=== PATIENT | female | born 1950 | race Caucasian/White ===

== ENCOUNTER 2019-01-11 16:12 | Inpatient (IN) | payer MEDICARE, MEDICAID ==
[2019-01-11] VITALS (20 sets, daily range): BP systolic 69–144; BP diastolic 34–93; BMI 26.6
[~2019-01-11] VITALS: Ht 165.1 cm; Wt 73.0 kg
[2019-01-11] MEDS ORDERED: ALBUTEROL SULF8.5 GM INH (16:28)
[2019-01-11] MEDS ORDERED: SYMBICORT 16010.2 GM INH (16:29)
[2019-01-11] MEDS ORDERED: BUMETANIDE0.5 MG PO (16:29)
[2019-01-11] MEDS ORDERED: ELAVIL25 MG PO (16:29)
[2019-01-11] MEDS ORDERED: VITAMIN D31000 UNIT PO (16:30)
[2019-01-11] MEDS ORDERED: CARBIDOPA-LEVO1 EAC2 PO (16:30)
[2019-01-11] MEDS ORDERED: CLEOCIN HCL300 MG PO (16:30)
[2019-01-11] MEDS ORDERED: COREG6.25 MG PO (16:30)
[2019-01-11] MEDS ORDERED: VITAMIN B-12500 MCG PO (16:31)
[2019-01-11] MEDS ORDERED: CATAPRES0.1 MG PO (16:31)
[2019-01-11] MEDS ORDERED: MULTAQ400 MG PO (16:32)
[2019-01-11] MEDS ORDERED: COLACE100 MG PO (16:32)
[2019-01-11] MEDS ORDERED: FLORINEF 0.1 M0.1 MG PO (16:32)
[2019-01-11] MEDS ORDERED: NEURONTIN 300300 MG PO (16:34)
[2019-01-11] MEDS ORDERED: FOLIC ACID1 MG PO (16:34)
[2019-01-11] MEDS ORDERED: KLONOPIN1 MG PO (16:35)
[2019-01-11] MEDS ORDERED: IPRAT-ALBUT 0.5-3 ML UPD (16:35)
[2019-01-11] MEDS ORDERED: PRINIVIL10 MG PO (16:36)
[2019-01-11] MEDS ORDERED: SYNTHROID100 MCG PO (16:36)
[2019-01-11] MEDS ORDERED: K-TAB10 MEQ PO (16:37)
[2019-01-11] MEDS ORDERED: PERCOCET 7.5/321 TAB PO (16:37)
[2019-01-11] MEDS ORDERED: PROTONIX40 MG PO (16:37)
[2019-01-11] MEDS ORDERED: PAXIL40 MG PO (16:37)
[2019-01-11] MEDS ORDERED: SPIRIVA18 MCG INH (16:38)
[2019-01-11] MEDS ORDERED: GAS-X125 M1 PO (16:38)
[2019-01-11] MEDS ORDERED: STERAPRED DS 1010 MG PO (16:38)
[2019-01-11] MEDS ORDERED: XARELTO20 MG PO (16:39)
[2019-01-11] MEDS ORDERED: ZANAFLEX4 MG PO (16:39)
--- NOTE | 2019-01-11 17:12 | NUR ---
RESP. HERE TRYING TO STICK FOR ABG'S,
[2019-01-11 17:34] LABS: BASOPHILS 0.2 % (0-2); HEMATOCRIT 27.8 % (36.0-48.0); HEMOGLOBIN 9.2 g/dL (12-16); IMMATURE GRANULOCYTES 0.3 % (0-5); LYMPHOCYTES 5.5 % (15-50); MCH 28.4 pg (26.0-34.0); MCHC 33.1 g/dL (31.0-37.0); MCV 85.8 fL (80.0-100.0); MEAN PLATELET VOLUME 9.6 fL (7.4-10.4); MONOCYTES 8.3 % (2-11); NEUTROPHILS 84.7 % (40-80); PLATELET COUNT 243 10x3/uL (130-400); RBC 3.24 10x6/uL (4.00-5.40); RDW 19.5 % (11.5-14.5); WBC 12.6 10x3/uL (4.8-10.8)
[2019-01-11 17:58] LABS: APPEARANCE CLEAR (CLEAR); BILIRUBIN NEGATIVE (NEGATIVE); COLOR DK YELLOW (YELLOW); GLUCOSE NEGATIVE (NEGATIVE); KETONE NEGATIVE (NEGATIVE); NITRITE NEGATIVE (NEGATIVE); PROTEIN 1+ mg/dL (NEGATIVE); UROBILINOGEN NORMAL (NORMAL)
[2019-01-11 18:00] LABS: AMORPHOUS SEDIMENT >1+ /lpf (NONE SEEN); BACTERIA MODERATE /hpf (NONE SEEN); RED CELLS - URINE 0-5 /hpf (0-5); WHITE CELLS - URINE 0-5 /hpf (0-5)
[2019-01-11 18:04] LABS: ALBUMIN 1.9 g/dL (3.4-5.0); ALKALINE PHOSPHATASE 108 U/L (46-116); BILIRUBIN - TOTAL 0.26 mg/dL (0.2-1.3); CALC OSMOLALITY 281 mosm/kg (275-300); CARBON DIOXIDE 20.3 mmol/L (21.0-32.0); CHLORIDE - SERUM 103 mmol/L (98-107); CKMB 12.7 U/L (0.0-3.6); CREATININE - SERUM 2.7 mg/dL (0.6-1.3); GLUCOSE 110 mg/dL (74-106); POTASSIUM - SERUM 4.7 mmol/L (3.5-5.1); PROTEIN - SERUM 4.8 g/dL (6.4-8.2); SODIUM 136 mmol/L (136-145); UREA NITROGEN 37 mg/dL (7-18); eGFR NON AFRICAN AMERICAN 19 mL/min (90-120)
[2019-01-11 18:07] LABS: ALT (SGPT) 2 U/L (10-68); CREATINE KINASE 896 UL (21-215); TROPONIN-I < 0.017 ng/mL (0.000-0.060)
[2019-01-11 18:09] LABS: CALCIUM 6.2 mg/dL (8.5-10.1)
--- NOTE | 2019-01-11 19:00 | NUR ---
PICC LINE TO R SIDE ARM, PT HAS LARGE LAKE WRAP/SPLINT TO L ARM. PT STATES THAT SHE HAD SURGERY AT [facility]. PT HAS FOLLOW UP APPT TUESDAY WITH [facility]. PT STATES THAT HOME HEALTH HAS BEEN COMING TO DO ANTIBIOTICS IN PICC LINE.
--- NOTE | 2019-01-11 19:16 | NUR ---
BEDSIDE REPORT VIA SBAR FROM OFF GOING NURSE ANDREI. PT STABLE, REQUESTING SOMETHING FOR PAIN. INFORMED EDP AT THIS TIME.
--- NOTE | 2019-01-11 20:30 | NUR ---
LEVOPHED PAUSED AT THIS TIME. PT BP 130/80. ICU INFORMED. WILL TAKE DRIP TO ICU.
--- NOTE | 2019-01-11 20:40 | NUR ---
PT RECIEVED VIA STRETCHER FROM E.R., B/P 79/45, RESTARTED LEVOPHED GTT @ 5MCG VIA RIGHT PICC, PT SLIGHTLY LETHARGIC, O2 @ 3L VIA N/C, PIV IN LEFT THIGH SALINE LOCKED, STASIS ULCER NOTED TO RIGHT LOWER LEG, ADMISSION ASSESSMENT COMPLETED, WILL CONT TO MONITOR
--- NOTE | 2019-01-11 20:40 | NUR ---
LEVOPHED STARTED BACK.
[2019-01-11 22:50] LABS: CKMB 17.6 U/L (0.0-3.6); TROPONIN-I < 0.017 ng/mL (0.000-0.060)
[2019-01-11 22:51] LABS: CREATINE KINASE 1466 UL (21-215)
--- NOTE | 2019-01-11 23:00 | NUR ---
PT RESTING QUIETLY, REMAINS ON LEVOPHED GTT, WILL CONT TO MONITOR
[2019-01-12] VITALS (24 sets, daily range): BP systolic 92–143; BP diastolic 58–98; Ht 165.1 cm; Wt 73.0 kg
--- NOTE | 2019-01-12 00:30 | NUR ---
PT GONE TO RADIOLOGY VIA BED FOR VQ SCAN ACCOMPANIED BY NURSE
--- NOTE | 2019-01-12 03:00 | NUR ---
LEVOPHED DISCONTINUED, VITALS STABLE, PT RESTING QUIETLY
--- NOTE | 2019-01-12 05:00 | NUR ---
PT AWAKE C/O MORPHINE NOT HELPING WITH PAIN, ASKING FOR MUCINEX FOR CONGESTION, VITALS STABLE WITH NO PHYSICAL SIGNS OF DISTRESS NOTED
[2019-01-12 05:24] LABS: BASOPHILS 0.2 % (0-2); EOSINOPHILS 0.7 % (0-7); HEMATOCRIT 26.1 % (36.0-48.0); HEMOGLOBIN 8.5 g/dL (12-16); IMMATURE GRANULOCYTES 0.4 % (0-5); LYMPHOCYTES 8.7 % (15-50); MCH 27.8 pg (26.0-34.0); MCHC 32.6 g/dL (31.0-37.0); MCV 85.3 fL (80.0-100.0); MEAN PLATELET VOLUME 9.6 fL (7.4-10.4); PLATELET COUNT 242 10x3/uL (130-400); RBC 3.06 10x6/uL (4.00-5.40); RDW 19.4 % (11.5-14.5); WBC 10.6 10x3/uL (4.8-10.8)
[2019-01-12 05:30] LABS: APTT 32.5 SECONDS (22.8-39.4); INR 1.14 (0.85-1.17); PROTIME 14.1 SECONDS (11.6-15.0)
[2019-01-12 05:48] LABS: ALBUMIN 1.9 g/dL (3.4-5.0); ALKALINE PHOSPHATASE 103 U/L (46-116); BILIRUBIN - TOTAL 0.23 mg/dL (0.2-1.3); CARBON DIOXIDE 21.5 mmol/L (21.0-32.0); CHLORIDE - SERUM 106 mmol/L (98-107); CKMB 16.9 U/L (0.0-3.6); GLUCOSE 82 mg/dL (74-106); MAGNESIUM - SERUM 1.8 mg/dL (1.8-2.4); PHOSPHOROUS 2.7 mg/dL (2.5-4.9); POTASSIUM - SERUM 4.4 mmol/L (3.5-5.1); PRO BNP 3106 pg/mL (0-125); PROTEIN - SERUM 5.6 g/dL (6.4-8.2); SODIUM 138 mmol/L (136-145); VANCOMYCIN - RANDOM 11.5 ug/mL (10.0-20.0)
[2019-01-12 05:50] LABS: CALC OSMOLALITY 278 mosm/kg (275-300); CREATININE - SERUM 1.2 mg/dL (0.6-1.3); UREA NITROGEN 25 mg/dL (7-18); eGFR NON AFRICAN AMERICAN 47 mL/min (90-120)
[2019-01-12 05:51] LABS: ALT (SGPT) 5 U/L (10-68); CALCIUM 6.6 mg/dL (8.5-10.1); CREATINE KINASE 1507 UL (21-215); TROPONIN-I < 0.017 ng/mL (0.000-0.060)
[2019-01-12 11:26] LABS: ERYTHROCYTE SEDIMENTATION RATE 83 mm/hr (0-30)
[2019-01-12 12:05] LABS: TROPONIN-I < 0.017 ng/mL (0.000-0.060)
[2019-01-12 12:08] LABS: CREATINE KINASE 1425 UL (21-215)
--- NOTE | 2019-01-12 12:20 | MORECARE ---
CASE MANAGEMENT DISCHARGE SUMMARY PATIENT: HAIM FITZGERALD UNIT: [id number] ADM DATE: 01/11/19 AGE: 68 : 51 SEX: F ROOM/BED: D.2313 AUTHOR: KAREN WILLIAMSON PHYSICIAN: REFERRING PHYSICIAN: MAGALY ALVA MD DATE OF SERVICE: 01/12/19 Discharge Plan Patient Name: HAIM FITZGERALD [facility] [facility] 1950 Planned Disposition: Home with Home Health Anticipated Discharge Date: Discharge Date: Expected LOS: Initial Reviewer: [email or web address] Initial Review Date: 01/12/2019 Generated: 01/12/19 1:20 pm Patient Name: HAIM FITZGERALD Page 45889 at 1220 All edits/amendments must be made on the electronic document DICTATION DATE: 01/12/19 1219 WEB MERCHANT: KAYY 01/12/19 1219 RPT#: [id number] DC DATE: STATUS: ADM IN [facility] [address] [place] [address] END OF REPORT
--- NOTE | 2019-01-12 12:35 | MORECARE ---
CASE MANAGEMENT DISCHARGE SUMMARY PATIENT: HAIM FITZGERALD UNIT: [id number] ADM DATE: 01/11/19 AGE: 68 : 51 SEX: F ROOM/BED: D.2313 AUTHOR: CLAY,DOC PHYSICIAN: REFERRING PHYSICIAN: MAGALY ALVA MD DATE OF SERVICE: 01/12/19 Discharge Plan Patient Name: HAIM FITZGERALD Facility: [facility]:[place] : 1950 Planned Disposition: Home with Home Health Anticipated Discharge Date: Discharge Date: Expected LOS: Initial Reviewer: [email or web address] Initial Review Date: 01/12/2019 Generated: 01/12/19 1:35 pm Comments DCP- Discharge Planning Updated by [id number]: Shaylee Bowden on 01/12/19 11:[address] Patient Name: HAIM FITZGERALD Admission Status: ER Accout number: [id number] Admission Date: 01-11-2019 : 1950 Admission Diagnosis: Attending: MAGALY ALVA Current LOS: 1 Anticipated DC Date: Planned Disposition: Home with Home Health Primary Insurance: [facility] MEDICARE SOLUTIONS Discharge Planning Comments: CM met with patient to complete initial dc planning assessment. CM educated patient on the CM role and verbal consent given by patient to complete assessment. Patient lives at home alone where she is independent with her care. At discharge patient plans to return home and feels this is a safe discharge. CM discussed availability of home health, rehab services, and medical equipment. Patient states that she has Home Health with [facility]? Patient also states that her friend Sanaz checks on her often. Patient has a nebulizer and home o2 ( [place] home patient ) Patient denied known discharge needs at this time. CM will continue to follow and will assist as needed with dc plans/needs. Systems Integration Manager: Shaylee Bowden DCPIA - Discharge Planning Initial Assessment Updated by [email or web address]: Shaylee Bowden on 01/12/19 12:26 pm * Is the patient Alert and Oriented? Yes * How many steps to enter\exit or inside your home? * PCP MANJIT * Pharmacy [facility] * Preadmission Environment Home Alone * ADLs Independent * Other Equipment ROLLATOR, HOME 02, NEBULIZER * List name and contact numbers for known caregivers / representatives who currently or will assist patient after discharge: SANAZ REINA - [place] - [phone] * Verbal permission to speak to the caregivers and representatives has been obtained from the patient. Yes * Community resources currently utilized Home Health * Please name any agencies selected above. [facility]?? * Additional services required to return to the preadmission environment? No * Can the patient safely return to the preadmission environment? Yes * Has this patient been hospitalized within the prior 30 days at any hospital? No Last DP export: 01/12/19 11:20 am Patient Name: HAIM FITZGERALD Page 76201 at 1235 All edits/amendments must be made on the electronic document DICTATION DATE: 01/12/19 1235 STEAMBLASTER: KAYY 01/12/19 1235 RPT#: [id number] DC DATE: STATUS: ADM IN [facility] [address] [place] [address] END OF REPORT
--- NOTE | 2019-01-12 13:54 | NUR ---
0700 AWAKE ALERT ANSWERS QUESTIONS APPROPRIATELY ASSESSMENT COMPLETE NS @ 100ML/HR INFUSING TO RIGHT UPPER ARM PICC SITE SATISFACTORY
--- NOTE | 2019-01-12 13:57 | NUR ---
0900 PAPER CUP MACHINE TENDER FOR DR AYERS PRESENT AT BEDSIDE REMOVING OLD DRESSING TO LEFT ARM SURGICAL SITE SHANNON INTACT REPLACED WITH NEW DRESSING
--- NOTE | 2019-01-12 14:27 | NUR ---
1430 REMOVED LEFT THIGH SALINE LOCK SIGHT SATISFACTORY
--- NOTE | 2019-01-12 17:00 | NUR ---
RECEVIED VIA BED TO ROOM. BILATERAL FACIAL CHEECKS ARE BRIGHT RED, ON 4L PER NC. RIGHT UPPER ARM SINGLE LUMEN PICC SALINE LOCK SEEN WITH DRESSING C/D/I. RAMÍREZ CATH PATENT WITH CLEAR YELLOW URINE. BUTTOCK IS SLIGHTLY RED, SKIN BLANCHABLE. LOOSE LAKE WRAP SEEN TO LEFT ELBOW AREA. SEVERAL WHITE DRESSING SEEN TO RIGHT LOWER LEG, DATED TODAY. UPON TRANSFER TO BED, PATIENT COMPLAIN OF HAVING TO THROW UP. NO EMESIS SEEN. NON PRODUCTIVE COUGH.
--- NOTE | 2019-01-12 17:14 | NUR ---
1635 REPORT CALLED TO IVÁN ON MED II
--- NOTE | 2019-01-12 17:15 | NUR ---
1700 TRANSPORTED TO ROOM 2136 WEARING 4L O2/NC ACCEPTED BY 2 RN.
--- NOTE | 2019-01-13 00:08 | NUR ---
INITIAL ROUNDS AND ASSESSMENT, PT RESTING IN BED WITH EYES CLOSED. BACK TO NURSES STATION AND PHONE CALL FROM DR AYERS FOR PT TO BE TRANSFERRED TO [facility] FOR HIGHER LEVEL OF CARE. LEFT ELBOW IS SEPTIC AND NEEDS TO BE SEEN BY AN ELBOW SPECIALIST. PT VERY UPSET, CRYING. VERY ANXIOUS. ROCKING BACK AND FORTH. SPOKE AT LENGTH WITH PATIENT ABOUT THE REASON FOR A TRANSFER. ELECTRICAL MACHINIST, DHAVAL JOVEL NOTIFIED OF TRANSFER ORDER PER DR AYERS AND ACKNOWLEDGES/APPROVES TRANSFER. ALL PAPERWORK COMPLETED. TRANSFER TEAM FROM [facility] SPOKEN TO. REPORT CALLED TO CORTNEY AT [facility]. PT WILL BE GOING TO ROOM F920. PAGED DASHAWN STEWART AND OBTAINED ORDER FOR ATIVAN 0.5MG SIVP FOR HIGH LEVEL OF ANXIETY BEING DISPLAYED BY PATIENT. PT ALSO CRYING AND SAYING SHE HURTS IN HER ELBOW. ADMINISTERED. IV ATIVAN AND IV MORPHINE AT 2114/2119. AFTER PATIENT CALMER, SHE SIGNED RELEASE OF INFO, CONSENT TO TRANSFER FORMS AND WAS ABLE TO PROCESS MORE OF WHAT WAS BEING TOLD TO HER AND UNDERSTAND THE IMPORTANCE OF THE TRANSFER. PT'S CAREGIVER, ANDREI PORTILLO, ARRIVED TO COMFORT PATIENT AND ALSO TOOK HOME ALL HER VALUABLES WITH PATIENT'S CONSENT. [address] [facility] HAS ARRIVED AND PT TRANSPORTED VIA STRETCHER AT THIS TIME. ALL PAPERWORK WITH [facility].
--- NOTE | 2019-01-15 08:58 | MORECARE ---
CASE MANAGEMENT DISCHARGE SUMMARY PATIENT: HAIM FITZGERALD UNIT: [id number] ADM DATE: 01/11/19 AGE: 68 : 51 SEX: F ROOM/BED: D.5066 AUTHOR: CLAY,DOC PHYSICIAN: REFERRING PHYSICIAN: MAGALY ALVA MD DATE OF SERVICE: 01/15/19 Discharge Plan Patient Name: HAIM FITZGERALD [facility]:[place] : 1950 Planned Disposition: Acute Care Hospital Anticipated Discharge Date: 01/13/19 Discharge Date: 01/12/2019 Expected LOS: 2 Initial Reviewer: [email or web address] Initial Review Date: 01/12/2019 Generated: 01/15/19 9:58 am Comments DCP- Discharge Planning Updated by [email or web address]: Shaylee Bowden on 01/12/19 11:[address] Patient Name: HAIM FITZGERALD Admission Status: ER Accout number: [id number] Admission Date: 01-11-2019 : 1950 Admission Diagnosis: Attending: MAGALY ALVA Current LOS: 1 Anticipated DC Date: Planned Disposition: Home with Home Health Primary Insurance: [facility] MEDICARE SOLUTIONS Discharge Planning Comments: CM met with patient to complete initial dc planning assessment. CM educated patient on the CM role and verbal consent given by patient to complete assessment. Patient lives at home alone where she is independent with her care. At discharge patient plans to return home and feels this is a safe discharge. CM discussed availability of home health, rehab services, and medical equipment. Patient states that she has Home Health with [facility]? Patient also states that her friend Sanaz checks on her often. Patient has a nebulizer and home o2 ( [place] home patient ) Patient denied known discharge needs at this time. CM will continue to follow and will assist as needed with dc plans/needs. Line Tender: Shaylee Bowden DCPIA - Discharge Planning Initial Assessment Updated by [email or web address]: Shaylee Bowden on 01/12/19 12:26 pm * Is the patient Alert and Oriented? Yes * How many steps to enter\exit or inside your home? * PCP MANJIT * Pharmacy [facility] * Preadmission Environment Home Alone * ADLs Independent * Other Equipment ROLLATOR, HOME 02, NEBULIZER * List name and contact numbers for known caregivers / representatives who currently or will assist patient after discharge: SANAZ REINA - [place] - [phone] * Verbal permission to speak to the caregivers and representatives has been obtained from the patient. Yes * Community resources currently utilized Home Health * Please name any agencies selected above. [facility]?? * Additional services required to return to the preadmission environment? No * Can the patient safely return to the preadmission environment? Yes * Has this patient been hospitalized within the prior 30 days at any hospital? No Last DP export: 01/12/19 11:35 am Patient Name: HAIM FITZGERALD Page 67266 at 0858 All edits/amendments must be made on the electronic document DICTATION DATE: 01/15/19857 MAKEUP INSTRUCTOR: KAYY 01/15/1957 RPT#: [id number] DC DATE:01/12/19 STATUS: DIS IN [facility] [address] [place] [address] END OF REPORT
== END 2019-01-12 23:55 | disposition short-term general hospital (02) | DRG 871 ==
LOC: D.ER 16:12 → D.ICU 19:18 → D.M2 01-12 17:06
PROVIDERS: Family Medicine; Orthopaedic Surgery; ADMIT Internal Medicine Nephrology; ATTEND Internal Medicine Nephrology
DX: A41.9 Sepsis, unspecified organism (principal); R65.21 Severe sepsis with septic shock; N17.0 Acute kidney failure with tubular necrosis; M00.9 Pyogenic arthritis, unspecified; N39.0 Urinary tract infection, site not specified; I95.9 Hypotension, unspecified; J43.9 Emphysema, unspecified; I11.0 Hypertensive heart disease with heart failure; I50.9 Heart failure, unspecified; E03.9 Hypothyroidism, unspecified; K21.9 Gastro-esophageal reflux disease without esophagitis; M06.9 Rheumatoid arthritis, unspecified; G20 Parkinson's disease; M19.90 Unspecified osteoarthritis, unspecified site; G89.29 Other chronic pain; F32.9 Major depressive disorder, single episode, unspecified; G62.9 Polyneuropathy, unspecified; D64.9 Anemia, unspecified; E83.51 Hypocalcemia

== ENCOUNTER → 2019-01-22 15:39 | Outpatient (CLI) | payer MEDICARE, MEDICAID ==
[2019-01-12 10:00] VITALS: BMI 26.6
[~2019-01-22 15:39] MED LIST: ALBUTEROL SULF8.5 GM INH; BUMETANIDE0.5 MG PO; CARBIDOPA-LEVO1 EAC2 PO; CATAPRES0.1 MG PO; CLEOCIN HCL300 MG PO; COLACE100 MG PO; COREG6.25 MG PO; ELAVIL25 MG PO; FLORINEF 0.1 M0.1 MG PO; FOLIC ACID1 MG PO; GAS-X125 M1 PO; IPRAT-ALBUT 0.5-3 ML UPD; K-TAB10 MEQ PO; KLONOPIN1 MG PO; MULTAQ400 MG PO; NEURONTIN 300300 MG PO; PAXIL40 MG PO; PERCOCET 7.5/321 TAB PO; PRINIVIL10 MG PO; PROTONIX40 MG PO; SPIRIVA18 MCG INH; STERAPRED DS 1010 MG PO; SYMBICORT 16010.2 GM INH; SYNTHROID100 MCG PO; VITAMIN B-12500 MCG PO; VITAMIN D31000 UNIT PO; XARELTO20 MG PO; ZANAFLEX4 MG PO
[2019-01-22 15:59] LABS: BASOPHILS 0.1 % (0-2); EOSINOPHILS 2.7 % (0-7); HEMATOCRIT 32.1 % (36.0-48.0); HEMOGLOBIN 10.4 g/dL (12-16); IMMATURE GRANULOCYTES 0.5 % (0-5); LYMPHOCYTES 5.9 % (15-50); MCH 27.8 pg (26.0-34.0); MCHC 32.4 g/dL (31.0-37.0); MCV 85.8 fL (80.0-100.0); MEAN PLATELET VOLUME 10.4 fL (7.4-10.4); MONOCYTES 4.6 % (2-11); NEUTROPHILS 86.2 % (40-80); RBC 3.74 10x6/uL (4.00-5.40); RDW 18.4 % (11.5-14.5); WBC 13.8 10x3/uL (4.8-10.8)
[2019-01-22 16:26] LABS: PLATELET COUNT 447 10x3/uL (130-400)
== END | disposition home or self-care (01) ==
LOC: D.LABREF 15:39
PROVIDERS: ATTEND Family Medicine
DX: L03.114 Cellulitis of left upper limb (principal)

== ENCOUNTER → 2019-02-05 14:11 | Outpatient (CLI) | payer MEDICARE, MEDICAID ==
[2019-01-12 10:00] VITALS: BMI 26.6
[2019-02-05 14:36] LABS: BASOPHILS 0.7 % (0-2); EOSINOPHILS 6.9 % (0-7); HEMATOCRIT 37.1 % (36.0-48.0); HEMOGLOBIN 11.6 g/dL (12-16); IMMATURE GRANULOCYTES 0.3 % (0-5); LYMPHOCYTES 24.5 % (15-50); MCH 28.2 pg (26.0-34.0); MCHC 31.3 g/dL (31.0-37.0); MCV 90.3 fL (80.0-100.0); MEAN PLATELET VOLUME 11.1 fL (7.4-10.4); MONOCYTES 8.2 % (2-11); NEUTROPHILS 59.4 % (40-80); RBC 4.11 10x6/uL (4.00-5.40); RDW 18.5 % (11.5-14.5); WBC 6.8 10x3/uL (4.8-10.8)
[2019-02-05 14:46] LABS: PLATELET COUNT 274 10x3/uL (130-400)
[2019-02-05 14:51] LABS: ALBUMIN 2.8 g/dL (3.4-5.0); BILIRUBIN - DIRECT 0.09 mg/dL (0.00-0.30); BILIRUBIN - INDIRECT 0.42 mg/dL (0.00-1.00); BILIRUBIN - TOTAL 0.51 mg/dL (0.2-1.3); CREATININE - SERUM 1.3 mg/dL (0.6-1.3); PROTEIN - SERUM 6.1 g/dL (6.4-8.2)
== END | disposition home or self-care (01) ==
LOC: D.LABREF 14:11
PROVIDERS: ATTEND Family Medicine
DX: L03.114 Cellulitis of left upper limb (principal)

== ENCOUNTER → 2019-02-12 16:24 | Outpatient (CLI) | payer MEDICARE, MEDICAID ==
[2019-01-12 10:00] VITALS: BMI 26.6
[2019-02-12 17:33] LABS: BASOPHILS 0.3 % (0-2); HEMATOCRIT 33.5 % (36.0-48.0); HEMOGLOBIN 10.8 g/dL (12-16); IMMATURE GRANULOCYTES 0.2 % (0-5); LYMPHOCYTES 9.8 % (15-50); MCH 28.6 pg (26.0-34.0); MCHC 32.2 g/dL (31.0-37.0); MCV 88.9 fL (80.0-100.0); MEAN PLATELET VOLUME 11.2 fL (7.4-10.4); MONOCYTES 3.8 % (2-11); NEUTROPHILS 84.9 % (40-80); PLATELET COUNT 228 10x3/uL (130-400); RBC 3.77 10x6/uL (4.00-5.40); RDW 17.4 % (11.5-14.5); WBC 8.9 10x3/uL (4.8-10.8)
[2019-02-12 17:48] LABS: ALBUMIN 2.8 g/dL (3.4-5.0); BILIRUBIN - DIRECT 0.06 mg/dL (0.00-0.30); BILIRUBIN - INDIRECT 0.17 mg/dL (0.00-1.00); BILIRUBIN - TOTAL 0.23 mg/dL (0.2-1.3); CREATININE - SERUM 0.8 mg/dL (0.6-1.3); PROTEIN - SERUM 5.9 g/dL (6.4-8.2)
== END | disposition home or self-care (01) ==
LOC: D.LABREF 16:24
PROVIDERS: ATTEND Family Medicine
DX: B95.62 Methicillin resistant Staphylococcus aureus infection as the cause of diseases classified elsewhere (principal); M01.X22 Direct infection of left elbow in infectious and parasitic diseases classified elsewhere

== ENCOUNTER → 2019-02-19 14:56 | Outpatient (CLI) | payer MEDICARE, MEDICAID ==
[2019-01-12 10:00] VITALS: BMI 26.6
[2019-02-19 16:25] LABS: BASOPHILS 0.2 % (0-2); HEMATOCRIT 33.8 % (36.0-48.0); HEMOGLOBIN 10.8 g/dL (12-16); IMMATURE GRANULOCYTES 0.1 % (0-5); LYMPHOCYTES 9.5 % (15-50); MCH 28.3 pg (26.0-34.0); MCV 88.7 fL (80.0-100.0); MEAN PLATELET VOLUME 10.6 fL (7.4-10.4); MONOCYTES 4.8 % (2-11); NEUTROPHILS 83.4 % (40-80); PLATELET COUNT 250 10x3/uL (130-400); RBC 3.81 10x6/uL (4.00-5.40); RDW 16.7 % (11.5-14.5); WBC 8.5 10x3/uL (4.8-10.8)
[2019-02-19 16:48] LABS: ALBUMIN 2.5 g/dL (3.4-5.0); BILIRUBIN - DIRECT 0.05 mg/dL (0.00-0.30); BILIRUBIN - INDIRECT 0.18 mg/dL (0.00-1.00); BILIRUBIN - TOTAL 0.23 mg/dL (0.2-1.3); CREATININE - SERUM 1.1 mg/dL (0.6-1.3); PROTEIN - SERUM 5.5 g/dL (6.4-8.2)
== END | disposition home or self-care (01) ==
LOC: D.LABREF 14:56
DX: B95.62 Methicillin resistant Staphylococcus aureus infection as the cause of diseases classified elsewhere (principal)

== ENCOUNTER 2019-05-07 12:49 | Emergency (ER) | payer MEDICARE, MEDICAID ==
[~2019-05-07] VITALS: Ht 165.1 cm; Wt 69.1 kg
[2019-05-07 12:53] VITALS: Ht 165.1 cm; Wt 69.1 kg
[2019-05-07 13:41] LABS: BASOPHILS 0.3 % (0-2); EOSINOPHILS 1.9 % (0-7); HEMATOCRIT 35.8 % (36.0-48.0); HEMOGLOBIN 11.1 g/dL (12-16); IMMATURE GRANULOCYTES 0.1 % (0-5); LYMPHOCYTES 18.4 % (15-50); MCH 28.5 pg (26.0-34.0); MCV 91.8 fL (80.0-100.0); MEAN PLATELET VOLUME 10.8 fL (7.4-10.4); MONOCYTES 8.2 % (2-11); NEUTROPHILS 71.1 % (40-80); PLATELET COUNT 218 10x3/uL (130-400); RDW 18.7 % (11.5-14.5); WBC 8.8 10x3/uL (4.8-10.8)
[2019-05-07 13:54] LABS: CALC OSMOLALITY 286 mosm/kg (275-300); CALCIUM 8.1 mg/dL (8.5-10.1); CARBON DIOXIDE 26.3 mmol/L (21.0-32.0); CHLORIDE - SERUM 107 mmol/L (98-107); CREATININE - SERUM 1.2 mg/dL (0.6-1.3); GLUCOSE 80 mg/dL (74-106); POTASSIUM - SERUM 4.4 mmol/L (3.5-5.1); SODIUM 142 mmol/L (136-145); UREA NITROGEN 26 mg/dL (7-18); eGFR NON AFRICAN AMERICAN 47 mL/min (90-120)
[2019-05-07 14:13] LABS: ALBUMIN 2.8 g/dL (3.4-5.0); ALKALINE PHOSPHATASE 96 U/L (46-116); ALT (SGPT) 9 U/L (10-68); AMYLASE - SERUM 21 U/L (25-115); BILIRUBIN - TOTAL 0.19 mg/dL (0.2-1.3); CKMB 0.5 U/L (0.0-3.6); CREATINE KINASE 38 UL (21-215); LIPASE 76 U/L (73-393); MAGNESIUM - SERUM 1.6 mg/dL (1.8-2.4); TROPONIN-I < 0.017 ng/mL (0.000-0.060)
[2019-05-07 14:41] LABS: APPEARANCE CLEAR (CLEAR); BILIRUBIN NEGATIVE (NEGATIVE); COLOR YELLOW (YELLOW); GLUCOSE NEGATIVE (NEGATIVE); KETONE NEGATIVE (NEGATIVE); NITRITE NEGATIVE (NEGATIVE); PROTEIN NEGATIVE (NEGATIVE); UROBILINOGEN NORMAL (NORMAL)
[2019-05-07 16:22] VITALS: BP 129/82
== END 2019-05-07 16:20 | disposition home or self-care (01) ==
LOC: D.ER 12:49
PROVIDERS: Family Medicine
DX: E86.0 Dehydration (principal); Z86.73 Personal history of transient ischemic attack (TIA), and cerebral infarction without residual deficits; G62.9 Polyneuropathy, unspecified; G20 Parkinson's disease; E07.9 Disorder of thyroid, unspecified; I11.0 Hypertensive heart disease with heart failure; I50.9 Heart failure, unspecified; Z72.0 Tobacco use; J44.9 Chronic obstructive pulmonary disease, unspecified

== ENCOUNTER 2019-08-04 18:25 | Inpatient (IN) | payer MEDICARE, MEDICAID ==
[~2019-08-04] VITALS: Ht 165.1 cm; Wt 70.9 kg
[2019-08-04 19:00] VITALS: BP 98/77
--- NOTE | 2019-08-04 19:00 | NUR ---
PT C/O PAIN MD INFORMED. SEE EMAR.
[2019-08-04 19:41] LABS: BASOPHILS 0.5 % (0-2); EOSINOPHILS 1.6 % (0-7); HEMATOCRIT 42.4 % (36.0-48.0); HEMOGLOBIN 14.2 g/dL (12-16); IMMATURE GRANULOCYTES 0.3 % (0-5); LYMPHOCYTES 13.7 % (15-50); MCH 31.2 pg (26.0-34.0); MCHC 33.5 g/dL (31.0-37.0); MCV 93.2 fL (80.0-100.0); MEAN PLATELET VOLUME 10.7 fL (7.4-10.4); MONOCYTES 5.7 % (2-11); NEUTROPHILS 78.2 % (40-80); RBC 4.55 10x6/uL (4.00-5.40); RDW 14.4 % (11.5-14.5); WBC 10.4 10x3/uL (4.8-10.8)
[2019-08-04 19:42] LABS: PLATELET COUNT 277 10x3/uL (130-400)
[2019-08-04 20:00] VITALS: BP 94/63
--- NOTE | 2019-08-04 20:00 | NUR ---
PT PLACED IN SLING AT THIS TIME. PT HAD KERLEX TO R LOWER LEG. PT HAS LARGE HEMOTOMA TO L LOPEZ. NO BLEEDING PT LEG WRAPPED WITH LAKE WRAP AT THIS NICOLE ICE PACK APPLIED
[2019-08-04 20:03] LABS: ALBUMIN 3.8 g/dL (3.4-5.0); ANION GAP 13.3 mmol/L (8-16); BILIRUBIN - TOTAL 0.38 mg/dL (0.2-1.3); CALCIUM 9.4 mg/dL (8.5-10.1); CARBON DIOXIDE 27.9 mmol/L (21.0-32.0); CREATININE - SERUM 1.2 mg/dL (0.6-1.3); PROTEIN - SERUM 7.5 g/dL (6.4-8.2)
[2019-08-04 20:06] LABS: POTASSIUM - SERUM 6.2 mmol/L (3.5-5.1)
[2019-08-04 21:00] VITALS: BP 100/63
--- NOTE | 2019-08-04 23:30 | NUR ---
RECEIVED PT FROM ER VIA STRETCHER. PT INSISTED SHE COULD WALK FROM STRETCHER TO BED BUT WAS BARELY ABLE TO STAND UP. STAFF TRANSFERRED PT FROM STRETCHER TO BED. RT ARM IN SLING. LAKE WRAP NOTED TO RLE. BRUISES NOTED TO BLE. NS @ 75 MLHR INFUSING IN LT HAND. ALERT AND ORIENTED X4. VERY IRRITABLE, VERBALLY DISRUPTIVE, ATTN SEEKING WITH STAFF. STITCHES NOTED TO LT ELBOW. RECEIVED MORPHINE IN ER. B/P LOW. STERLING ALARM ON FOR PT SAFETY. CL IN REACH. RESP IRREG, SHALLOW. O2 @ 4L/NC. ENCOURAGED TO DEEP BREATHE.
[2019-08-05] VITALS (7 sets, daily range): BP systolic 79–98; BP diastolic 47–64; Ht 165.1 cm; Wt 70.9 kg
--- NOTE | 2019-08-05 02:35 | NUR ---
MEDICATED WITH TYLENOL FOR C/O PAIN IN RT ARM AND LEG RATING 9. B/P LOW AND UNABLE TO GIVE MORPHINE. CL IN REACH.
--- NOTE | 2019-08-05 03:45 | NUR ---
B/P 123/72 NOW. MEDICATED WITH MORPHINE FOR C/O PAIN IN RT ARM AND RLE RATING 10. CL IN REACH.
--- NOTE | 2019-08-05 04:25 | NUR ---
MEDICATED WITH SOMA ORDERED. PT NOW SATISFIED. CL IN REACH.
--- NOTE | 2019-08-05 05:02 | NUR ---
CONT TO C/O SEVERE PAIN IN RT ARM AND RLE AND IS ASKING FOR MUSCLE RELAXER. NOTIFIED DR OMER OF PT C/O AND REQUEST. NEW ORDER NOTED FOR SOMA AND INCREASE IV FLUIDS TO 100 MLHR. NOTIFIED ASBESTOS WIRE FINISHER OF NEED FOR MED THAT THIS LINUX ENGINEER CAN NOT OVERRIDE AT THIS TIME.
[2019-08-05 06:19] LABS: BASOPHILS 0.4 % (0-2); EOSINOPHILS 1.7 % (0-7); HEMATOCRIT 34.9 % (36.0-48.0); HEMOGLOBIN 11.4 g/dL (12-16); IMMATURE GRANULOCYTES 0.2 % (0-5); LYMPHOCYTES 14.5 % (15-50); MCH 30.9 pg (26.0-34.0); MCHC 32.7 g/dL (31.0-37.0); MCV 94.6 fL (80.0-100.0); MEAN PLATELET VOLUME 10.6 fL (7.4-10.4); MONOCYTES 8.6 % (2-11); NEUTROPHILS 74.6 % (40-80); PLATELET COUNT 239 10x3/uL (130-400); RBC 3.69 10x6/uL (4.00-5.40); RDW 14.5 % (11.5-14.5)
[2019-08-05 06:49] LABS: ALBUMIN 3.2 g/dL (3.4-5.0); ANION GAP 10.5 mmol/L (8-16); BILIRUBIN - TOTAL 0.36 mg/dL (0.2-1.3); CALCIUM 8.1 mg/dL (8.5-10.1); CARBON DIOXIDE 28.2 mmol/L (21.0-32.0); MAGNESIUM - SERUM 2.2 mg/dL (1.8-2.4); POTASSIUM - SERUM 5.7 mmol/L (3.5-5.1); PROTEIN - SERUM 6.2 g/dL (6.4-8.2)
[2019-08-05 06:55] LABS: CREATININE - SERUM 1.9 mg/dL (0.6-1.3)
--- NOTE | 2019-08-05 07:53 | NUR ---
PT RESTING IN BED WITH EYES OPEN, ALERT AND ORIENTED. IV LOCATED TO LEFT HAND RUNNING NS @ 100ML/HR. NO S/S OF DISTRESS AT THIS TIME, DENIES NEEDS, WILL CONT TO MONITOR.
--- NOTE | 2019-08-05 08:49 | NUR ---
BLADDER SCAN SHOWS 326ML OF URINE PRESENT, PT STATES SHE HAS NO URGE TO TRY AND PEE, AND THAT IT IS NORMAL FOR HER. WILL CONT TO MONITOR.
--- NOTE | 2019-08-05 10:26 | NUR ---
CONTACTED ABOUT BLOOD PRESSURE OF 79/40, WAS TOLD HE WOULD STOP MEDS THAT SHE NO LONGER NEEDED AND TO INCREASE NS TO 125ML/HR. WILL CONT TO MONITOR.
--- NOTE | 2019-08-05 12:00 | NUR ---
RAMÍREZ PLACED, 500 ML OF CLEAR YELLOW URINE PUT OUT.
[2019-08-05 12:41] LABS: NITRITE NEGATIVE (NEGATIVE); SPECIFIC GRAVITY 1.005 (1.005-1.020)
[2019-08-05 12:42] LABS: BILIRUBIN NEGATIVE (NEGATIVE); GLUCOSE 50 mg/dL (NEGATIVE); KETONE NEGATIVE (NEGATIVE); UROBILINOGEN NORMAL (NORMAL)
[2019-08-06] VITALS (7 sets, daily range): BP systolic 90–133; BP diastolic 54–85
--- NOTE | 2019-08-06 08:15 | NUR ---
PT RESTING IN BED, VOICING SEVERE PAIN TO RIGHT UPPER EXTREMITY. PT VOICES ARM SPASMING WITH PAIN 9/10 AT THIS TIME. AM MEDICATIONS ADMINISTERED AT THIS TIME. SLING NOTED TO RIGHT UPPER EXTREMITY. IV TO LEFT WRIST WITH NS @ 100ML/HR INFUSING VIA PUMP. SITE WITHOUT REDNESS OR EDEMA. BRUISING NOTED GENERALIZED OVER BODY. LAKE WRAP TO RIGHT LOWER EXTREMITY WITH NOTED LARGE HEMATOME TO LOWER LATERIAL CALF. PT DENIES FURTHER NEEDS AT THIS TIME. CL WITHIN REACH. ENCOURAGED TO CALL WITH NEEDS. CONTINUE POC
[2019-08-06 09:34] LABS: BASOPHILS 0.3 % (0-2); EOSINOPHILS 2.1 % (0-7); HEMOGLOBIN 9.5 g/dL (12-16); IMMATURE GRANULOCYTES 0.3 % (0-5); LYMPHOCYTES 13.8 % (15-50); MCH 30.1 pg (26.0-34.0); MCHC 32.8 g/dL (31.0-37.0); MEAN PLATELET VOLUME 10.9 fL (7.4-10.4); MONOCYTES 9.6 % (2-11); NEUTROPHILS 73.9 % (40-80); RBC 3.16 10x6/uL (4.00-5.40)
[2019-08-06 09:38] LABS: MCV 91.8 fL (80.0-100.0); PLATELET COUNT 179 10x3/uL (130-400); WBC 6.1 10x3/uL (4.8-10.8)
[2019-08-06 09:51] LABS: ANION GAP 12.2 mmol/L (8-16)
[2019-08-06 09:54] LABS: CREATININE - SERUM 1.3 mg/dL (0.6-1.3)
[2019-08-06 09:55] LABS: POTASSIUM - SERUM 4.2 mmol/L (3.5-5.1)
--- NOTE | 2019-08-06 11:05 | NUR ---
IV TO LEFT WRIST LEAKING AT SITE WITH NOTED REDNESS AND SWELLING. IV DC'D. RESITED IV TO LEFT FOREARM X 1 STICK. GOOD BLOOD RETURN, EASILY FLUSHES. TAPED IN PLACE. PT FELIPE WELL.
--- NOTE | 2019-08-06 12:47 | MORECARE ---
CASE MANAGEMENT DISCHARGE SUMMARY PATIENT: HAIM FITZGERALD UNIT: [id number] ADM DATE: 08/04/19 AGE: 68 : 51 SEX: F ROOM/BED: D.2208 AUTHOR: KAREN WILLIAMSON PHYSICIAN: REFERRING PHYSICIAN: EVA OMER MD DATE OF SERVICE: 08/06/19 Discharge Plan Patient Name: HAIM FITZGERALD [facility] [facility] 1950 Planned Disposition: Anticipated Discharge Date: Discharge Date: Expected LOS: Initial Reviewer: [email or web address] Initial Review Date: 08/04/2019 Generated: 08/06/19 1:46 pm Comments DCP- Discharge Planning Updated by [email or web address]: Fallon Dunham on 08/06/19 11:[address] REFERRAL SENT TO [facility] ORDERED BY DR OMER External Providers External Provider: [facility] and [facility] Next Contact Date: Service Request Date: Service Type: Resolution: Reviewer: Comments: Patient Name: HAIM FITZGERALD Page [phone] at 1247 All edits/amendments must be made on the electronic document DICTATION DATE: 08/06/19 124 LONG DISTANCE BILLING OPERATOR: KAYY 08/06/19 1246 RPT#: [id number] DC DATE: STATUS: ADM IN [facility] [address] [place] [address] END OF REPORT
--- NOTE | 2019-08-06 20:32 | NUR ---
REC'D CHGE SHIFT WALKING ROUNDS CALL LITE ON STATES I NEED SOMETHING BUT DON'T KNOW WHAT IT IS INTRUUCTED TO CALL WHEN REMEMBERS.LITE ON IMMEDIATELY AFTER LEAVING ROOM.STATES WHY DOES IT TAKE SO LONG TO ANSWER LITE ASKED HOW CAN I HELP YOU.STATES LAST NURSE DIDN'T BRING SOMA AT 1800 WHEN IT WAS DUE EXPLAINED PRN.VOICES UNDERSTANDING
--- NOTE | 2019-08-07 03:18 | NUR ---
I have reviewed this patient and I concur with the Shift Assessment completed by the Licensed Practical Nurse today this shift.
[2019-08-07 04:00] VITALS: BP 123/80
--- NOTE | 2019-08-07 04:32 | MORECARE ---
CASE MANAGEMENT DISCHARGE SUMMARY PATIENT: HAIM FITZGERALD UNIT: [id number] ADM DATE: 08/04/19 AGE: 68 : 51 SEX: F ROOM/BED: D.2208 AUTHOR: KAREN WILLIAMSON PHYSICIAN: REFERRING PHYSICIAN: EVA OMER MD DATE OF SERVICE: 08/07/19 Discharge Plan Patient Name: HAIM FITZGERALD [facility] [facility] 1950 Planned Disposition: Anticipated Discharge Date: Discharge Date: Expected LOS: Initial Reviewer: [email or web address] Initial Review Date: 08/04/2019 Generated: 08/07/19 5:31 am Comments DCP- Discharge Planning Updated by [email or web address]: Fallon Dunham on 08/07/19 3:[address] RECEIVED A MESSAGE FROM YFN AT [facility], WILL RETRUN HER CALL WHEN SHE IS IN HER OFFICE YFN NUMBER IS [phone] DCP- Discharge Planning Updated by [email or web address]: Fallon Dunham on 08/06/19 11:[address] REFERRAL SENT TO [facility] ORDERED BY DR NEGRA Ruiz DP export: 08/06/19 11:47 a Patient Name: HAIM FITZGERALD Page 42823 at 0432 All edits/amendments must be made on the electronic document DICTATION DATE: 08/07/19430 FLEET COORDINATOR: KAYY 08/07/19 043 RPT#: [id number] DC DATE: STATUS: ADM IN [facility] [place] [address] [place] [address] END OF REPORT
--- NOTE | 2019-08-07 07:38 | NUR ---
PT RESTING IN BED RESP EVEN AND UNLABORED. PT REPORTS PAIN 6/10 AT THIS TIME. DISCUSSED MEDICATION OPTIONS AT THIS TIME. PT VOICES SCHEDULED KLONOPIN WOULD HELP HER TO RELAX TO PREVENT TENSION IN RIGHT SHOULDER. EDUCATED PT REGARDING TIME MEDICATION COULD BE ADMINISTERED. PT VOICES UNDERSTANDING. SLING TO RIGHT UPPER EXTREMITY, PT DOES HAVE DIFFICULTY MOVING EXTREMITY. IV TO LEFT FOREARM WITH NS @ 50ML/HR INFUSING VIA PUMP. SITE WITHOUT REDNESS OR EDEMA. F/C PATENT TO GRAVITY, DRAINING YELLOW URINE. LAKE WRAP TO RIGHT LOWER EXTREMITY. HEMATOMA REMAINS INTACT. PT DENIES FURTHER NEEDS AT THIS TIME. CL WITHIN REACH. ENCOURAGED TO CALL WITH NEEDS. CONTINUE POC
--- NOTE | 2019-08-07 08:35 | MORECARE ---
CASE MANAGEMENT DISCHARGE SUMMARY PATIENT: HAIM FITZGERALD UNIT: [id number] ADM DATE: 08/04/19 AGE: 68 : 51 SEX: F ROOM/BED: D.2208 AUTHOR: KAREN WILLIAMSON PHYSICIAN: REFERRING PHYSICIAN: EVA ELI MD DATE OF SERVICE: 08/07/19 Discharge Plan Patient Name: HAIM FITZGERALD [facility] : 1950 Planned Disposition: Anticipated Discharge Date: Discharge Date: Expected LOS: Initial Reviewer: [email or web address] Initial Review Date: 08/04/2019 Generated: 08/07/19 9:35 am Comments DCP- Discharge Planning Updated by [email or web address]: Ashley Alonso on 08/07/19 7:[address] CM called Yfn at [facility]. Yfn states they have PA and can accept her today. I called Dr. Eli's office and left a message for him to call me. CM will continue to follow and assist with discharge planning/needs. DCP- Discharge Planning Updated by [email or web address]: Fallon Dunham on 08/07/19 3:[address] RECEIVED A MESSAGE FROM YFN AT [facility], WILL RETRUN HER CALL WHEN SHE IS IN HER OFFICE YFN NUMBER IS [phone] DCP- Discharge Planning Updated by [email or web address]: Fallon Dunham on 08/06/19 11:[address] REFERRAL SENT TO [facility] ORDERED BY DR ELI Last DP export: 08/07/19 3:32 a Patient Name: HAIM FITZGERALD Page [phone] at 0835 All edits/amendments must be made on the electronic document DICTATION DATE: 08/07/19834 [employer] SUPERINTENDENT: KYAY 08/07/19834 RPT#: [id number] DC DATE: STATUS: ADM IN [facility] [address] [place] [address] END OF REPORT
[2019-08-07 09:10] VITALS: BP 124/65
[2019-08-07] MEDS ORDERED: FLORINEF 0.1 M0.1 MG PO (12:43)
[2019-08-07] MEDS ORDERED: SOMA350 MG PO (12:46)
[2019-08-07] MEDS ORDERED: HYDROCODON-ACE1 EA10 PO (12:47)
[2019-08-07 12:52] VITALS: BP 111/81
--- NOTE | 2019-08-07 13:31 | MORECARE ---
CASE MANAGEMENT DISCHARGE SUMMARY PATIENT: HAIM FITZGERALD UNIT: [id number] ADM DATE: 08/04/19 AGE: 68 : 51 SEX: F ROOM/BED: D.2208 AUTHOR: CLAYDOC PHYSICIAN: REFERRING PHYSICIAN: EVA ELI MD DATE OF SERVICE: 08/07/19 Discharge Plan Patient Name: HAIM FITZGERALD Facility: [facility]:[place] : 1950 Planned Disposition: Anticipated Discharge Date: Discharge Date: Expected LOS: Initial Reviewer: [email or web address] Initial Review Date: 08/04/2019 Generated: 08/07/19 2:31 pm Comments DCP- Discharge Planning Updated by [email or web address]: Ashley Alonso on 08/07/19 12:[address] Received discharge orders. I asked if I could call Gideon at [phone] and she states "no, I'll call". I informed her that Yfn with [facility] will pick her up at 4PM. DC orders/MAR and med list faxed to [facility]. She is discharging to a skilled bed. DCP- Discharge Planning Updated by [id number]: Ashley Alonso on 08/07/19 7:[address] CM called Yfn at [facility]. Yfn states they have PA and can accept her today. I called Dr. Eli's office and left a message for him to call me. CM will continue to follow and assist with discharge planning/needs. DCP- Discharge Planning Updated by [id number]: Fallon Dunham on 08/07/19 3:[address] RECEIVED A MESSAGE FROM YFN AT [facility], WILL RETRUN HER CALL WHEN SHE IS IN HER OFFICE YFN NUMBER IS [phone] DCP- Discharge Planning Updated by [id number]: Fallon Dunham on 08/06/19 11:[address] REFERRAL SENT TO [facility] ORDERED BY DR ELI Coverage Notice Reviewer: [email or web address] - Ashley Alonso Notice Issued Date-Time: 08/07/2019 13:24 Notice Type: IM Discharge Notice Notice Delivered To: Patient Relationship to Patient: Self Oracle Bpm Consultant Name: Delivery Method: HAND - Hand Delivered Chely Days: Prior Verbal Notification: Recipient Understood Notice: Yes Recipient Signature: Yes Med Rec Note Co-signed by Attending: Coverage Notice Comment: IMM explained, signed, given, copy placed in MR Last DP export: 08/07/19 7:35 a Patient Name: HAIM FITZGERALD Page 82010 at 1331 All edits/amendments must be made on the electronic document DICTATION DATE: 08/07/19 133 LOGGING TRUCK DRIVER: KAYY 08/07/19 1331 RPT#: [id number] DC DATE: STATUS: ADM IN [facility] [address] [place] [address] END OF REPORT
--- NOTE | 2019-08-08 12:40 | MORECARE ---
CASE MANAGEMENT DISCHARGE SUMMARY PATIENT: HAIM FITZGERALD UNIT: [id number] ADM DATE: 08/04/19 AGE: 68 : 51 SEX: F ROOM/BED: D.2208 AUTHOR: CLAYDOC PHYSICIAN: REFERRING PHYSICIAN: EVA ELI MD DATE OF SERVICE: 08/08/19 Discharge Plan Patient Name: HAIM FITZGERALD Facility: [facility]:[place] : 1950 Planned Disposition: Anticipated Discharge Date: Discharge Date: 08/07/2019 Expected LOS: 0 Initial Reviewer: [id number] Initial Review Date: 08/04/2019 Generated: 08/08/19 1:40 pm DCP- Discharge Planning Updated by [email or web address]: Ashley Alonso on 08/07/19 12:[address] Received discharge orders. I asked if I could call Gideon at [phone] and she states "no, I'll call". I informed her that Yfn with [facility] will pick her up at 4PM. DC orders/MAR and med list faxed to [facility]. She is discharging to a skilled bed. DCP- Discharge Planning Updated by [email or web address]: Ashley Alonso on 08/07/19 7:[address] CM called Yfn at [facility]. Yfn states they have PA and can accept her today. I called Dr. Eli's office and left a message for him to call me. CM will continue to follow and assist with discharge planning/needs. DCP- Discharge Planning Updated by [email or web address]: Fallon Dunham on 08/07/19 3:[address] RECEIVED A MESSAGE FROM YFN AT [facility], WILL RETRUN HER CALL WHEN SHE IS IN HER OFFICE YFN NUMBER IS [phone] DCP- Discharge Planning Updated by [email or web address]: Fallon Dunham on 08/06/19 11:[address] REFERRAL SENT TO [facility] ORDERED BY DR ELI Coverage Notice Reviewer: [id number] - Ashley Alonso Notice Issued Date-Time: 08/07/2019 13:24 Notice Type: IM Discharge Notice Notice Delivered To: Patient Relationship to Patient: Self Plant And Instrument Engineer Name: Delivery Method: HAND - Hand Delivered Chely Days: Prior Verbal Notification: Recipient Understood Notice: Yes Recipient Signature: Yes Med Rec Note Co-signed by Attending: Coverage Notice Comment: IMM explained, signed, given, copy placed in MR Last DP export: 08/07/19 12:31 p Patient Name: HAIM FITZGERALD Page 07988 at 1240 All edits/amendments must be made on the electronic document DICTATION DATE: 08/08/19 1240 INVENTORY TECHNICIAN: KAYY 08/08/19 1240 RPT#: [id number] DC DATE:08/07/19 STATUS: DIS IN [facility] [address] [place] [address] END OF REPORT
== END 2019-08-07 16:37 | DRG 563 ==
LOC: D.ER 18:25 → D.MS 21:40
PROVIDERS: Family Medicine; ADMIT Family Medicine; ATTEND Family Medicine
DX: S42.211A Unspecified displaced fracture of surgical neck of right humerus, initial encounter for closed fracture (principal); I82.501 Chronic embolism and thrombosis of unspecified deep veins of right lower extremity; I48.20 Chronic atrial fibrillation, unspecified; E27.40 Unspecified adrenocortical insufficiency; S80.11XA Contusion of right lower leg, initial encounter; E86.0 Dehydration; E03.9 Hypothyroidism, unspecified; I11.0 Hypertensive heart disease with heart failure; I50.9 Heart failure, unspecified; I73.9 Peripheral vascular disease, unspecified; G47.33 Obstructive sleep apnea (adult) (pediatric); W19.XXXA Unspecified fall, initial encounter; Y92.480 Sidewalk as the place of occurrence of the external cause; E87.5 Hyperkalemia; G89.21 Chronic pain due to trauma; J43.9 Emphysema, unspecified; M15.0 Primary generalized (osteo)arthritis; F32.9 Major depressive disorder, single episode, unspecified; E06.3 Autoimmune thyroiditis; K21.9 Gastro-esophageal reflux disease without esophagitis; M79.7 Fibromyalgia; I95.89 Other hypotension; E86.1 Hypovolemia; G20 Parkinson's disease

== ENCOUNTER 2019-08-14 23:21 | Inpatient (IN) | payer MEDICARE, MEDICAID ==
[~2019-08-14] VITALS: Ht 165.1 cm; Wt 70.3 kg
[~2019-08-14 23:21] MED LIST changes: +HYDROCODON-ACE1 EA10 PO; +SOMA350 MG PO
[2019-08-15 00:11] LABS: BASOPHILS 0.4 % (0-2); EOSINOPHILS 4.9 % (0-7); HEMATOCRIT 24.3 % (36.0-48.0); HEMOGLOBIN 7.7 g/dL (12-16); IMMATURE GRANULOCYTES 0.2 % (0-5); LYMPHOCYTES 15.4 % (15-50); MCH 30.2 pg (26.0-34.0); MCHC 31.7 g/dL (31.0-37.0); MCV 95.3 fL (80.0-100.0); MEAN PLATELET VOLUME 8.9 fL (7.4-10.4); MONOCYTES 10.8 % (2-11); NEUTROPHILS 68.3 % (40-80); RBC 2.55 10x6/uL (4.00-5.40); RDW 14.7 % (11.5-14.5); WBC 4.7 10x3/uL (4.8-10.8)
[2019-08-15 00:16] LABS: PLATELET COUNT 305 10x3/uL (130-400)
[2019-08-15 00:25] LABS: CALC OSMOLALITY 278 mosm/kg (275-300); CALCIUM 7.8 mg/dL (8.5-10.1); CARBON DIOXIDE 26.2 mmol/L (21.0-32.0); CHLORIDE - SERUM 105 mmol/L (98-107); CREATININE - SERUM 1.5 mg/dL (0.6-1.3); GLUCOSE 99 mg/dL (74-106); POTASSIUM - SERUM 3.5 mmol/L (3.5-5.1); SODIUM 138 mmol/L (136-145); UREA NITROGEN 22 mg/dL (7-18); eGFR NON AFRICAN AMERICAN 37 mL/min (90-120)
[2019-08-15 00:33] LABS: INR 2.71 (0.85-1.17); PROTIME 28.4 SECONDS (11.6-15.0)
[2019-08-15 00:34] LABS: ALBUMIN 2.3 g/dL (3.4-5.0); ALKALINE PHOSPHATASE 105 U/L (30-120); ALT (SGPT) 5 U/L (10-68); CKMB 0.7 U/L (0.0-3.6); CREATINE KINASE 130 UL (21-215); PROTEIN - SERUM 5.6 g/dL (6.4-8.2); TROPONIN-I < 0.017 ng/mL (0.000-0.060)
--- NOTE | 2019-08-15 00:55 | NUR ---
TO BED LOW AND LOCKED AND CALL LIGHT GIVEN TO PT ASSISTED WITH COMFORT AND ASSISTED WITH DRINK
[2019-08-15 06:00] VITALS: BP 114/68
--- NOTE | 2019-08-15 08:04 | NUR ---
PATIENT IS ALERT AND ORIENTED AND DENIES ANY NEEDS AT THIS TIME.
[2019-08-15 10:51] LABS: BASOPHILS 0.4 % (0-2); EOSINOPHILS 4.7 % (0-7); HEMATOCRIT 24.9 % (36.0-48.0); HEMOGLOBIN 7.9 g/dL (12-16); LYMPHOCYTES 9.4 % (15-50); MCH 29.9 pg (26.0-34.0); MCHC 31.7 g/dL (31.0-37.0); MCV 94.3 fL (80.0-100.0); MONOCYTES 8.3 % (2-11); NEUTROPHILS 77.2 % (40-80); PLATELET COUNT 304 10x3/uL (130-400); RBC 2.64 10x6/uL (4.00-5.40); RDW 14.8 % (11.5-14.5); WBC 4.5 10x3/uL (4.8-10.8)
--- NOTE | 2019-08-15 10:59 | NUR ---
STARTING FIRST UNIT OF BLOOD
[2019-08-15 11:16] LABS: % SATURATION 15 % (15-55); IRON 32 ug/dl (35-150); TOTAL IRON BIND CAPACITY 208 ug/dl (260-445); UNSAT IRON BIND CAPACITY 176 ug/dl (150-375)
[2019-08-15 11:29] VITALS: BP 147/82
--- NOTE | 2019-08-15 12:59 | NUR ---
PATIENT HAS BEEN PREOPED. EKG DONE. CONSENTS SIGNED. SHE HAS BEEN HIPPA CLEANSED AND HAS BLOOD INFUSING. SURGERY IS HER TO BRING HER TO HER PROCEDURE.
--- NOTE | 2019-08-15 13:37 | NUR ---
PATIENT IS IN TRANSPORT TO SURGERY NOW.
--- NOTE | 2019-08-15 16:05 | NUR ---
PATIENT IS BACK FROM SURGERY SHE HAD HER HEMATOMA EVACUATED BY DR ZAIDI. NOW SHE HAS A WOUND VAC TO THE RIGHT CALF. SHE IS RESTING EYES CLOSED AND VITAL SIGNS ARE STABLE.
[2019-08-15 16:14] VITALS: BP 138/78
--- NOTE | 2019-08-15 16:34 | NUR ---
FIND PULSE IN RIGHT ARM WITH DOPLAR. CALLED DR OMER, AND HE IS AWARE THAT THE ARM IS FX AND HE IS TREATING CONSERVTIVELY BECAUSE THERE ARE MANY OTHER HEALTH CONDITIONS TO CONSIDER. DR ZAIDI IS AWARE OF THE FX IN THE PATIENT ARM. WILL CONTINUE TO MONITOR CLOSELY.
--- NOTE | 2019-08-15 18:59 | NUR ---
PLACED ORDER FOR SHAILA MILLER TO START TOMORROW.
--- NOTE | 2019-08-15 19:17 | NUR ---
EVENING ROUNDS COMPLETE. PT SITTING UP IN BED. NO SIGNS OF DISTRESS. PT REQUEST BEDPAN. PLACED PT ON BEDPAN. PT DENIES ANY OTHER NEEDS AT THIS TIME. CL PROVIDED, EXPLAINED TO PT WHEN SHE IS FINISHED TO USE IT. BED IN LOWEST POSITION.
[2019-08-15 20:00] VITALS: BP 128/79
[2019-08-16] VITALS (7 sets, daily range): BP systolic 106–144; BP diastolic 60–79; BMI 25.8
[2019-08-16 06:43] LABS: BASOPHILS 0.4 % (0-2); EOSINOPHILS 0.8 % (0-7); HEMATOCRIT 27.9 % (36.0-48.0); IMMATURE GRANULOCYTES 0.2 % (0-5); LYMPHOCYTES 14.3 % (15-50); MCH 30.2 pg (26.0-34.0); MCHC 32.3 g/dL (31.0-37.0); MCV 93.6 fL (80.0-100.0); MEAN PLATELET VOLUME 9.1 fL (7.4-10.4); MONOCYTES 8.3 % (2-11); PLATELET COUNT 285 10x3/uL (130-400); RBC 2.98 10x6/uL (4.00-5.40); RDW 16.4 % (11.5-14.5); WBC 5.2 10x3/uL (4.8-10.8)
[2019-08-16 06:57] LABS: ALBUMIN 2.2 g/dL (3.4-5.0); ALKALINE PHOSPHATASE 98 U/L (30-120); ALT (SGPT) 6 U/L (10-68); BILIRUBIN - TOTAL 0.56 mg/dL (0.2-1.3); CALCIUM 7.9 mg/dL (8.5-10.1); CARBON DIOXIDE 27.1 mmol/L (21.0-32.0); CHLORIDE - SERUM 109 mmol/L (98-107); GLUCOSE 96 mg/dL (74-106); PROTEIN - SERUM 5.4 g/dL (6.4-8.2); SODIUM 143 mmol/L (136-145)
[2019-08-16 06:58] LABS: CALC OSMOLALITY 284 mosm/kg (275-300); CREATININE - SERUM 0.8 mg/dL (0.6-1.3); POTASSIUM - SERUM 4.1 mmol/L (3.5-5.1); UREA NITROGEN 12 mg/dL (7-18); eGFR NON AFRICAN AMERICAN 75 mL/min (90-120)
--- NOTE | 2019-08-16 08:14 | OP ---
PATIENT NAME: HAIM FITZGERALD MEDICAL RECORD: [id number] :52 LOCATION:D. D.2135 ADMISSION DATE:08/15/19 SURGEON: CARLOS ZAIDI DO DATE OF OPERATION: 08/15/2019 PROCEDURE PERFORMED: Right lower extremity hematoma evacuation and debridement and application of wound VAC. PREOPERATIVE DIAGNOSIS: Right lower extremity hematoma. POSTOPERATIVE DIAGNOSIS: Right lower extremity hematoma. INDICATIONS: Mr. Fitzgerald is a 61-year-old female who fell 2 weeks ago had an expanding hematoma in her right lower extremity. She was admitted last week and was sent home and the hematoma got bigger. She came back to the ER with a large hematoma in the right lower extremity, looking on examination, the skin was dying around it, and knowing this, I informed her we need to do a debridement as soon as possible to avoid further damage. I have told her that we may need to do skin grafts and leave a wound VAC in and she was okay with that and signed the consent. SURGEON: Carlos Zaidi DO DESCRIPTION OF PROCEDURE: The patient was taken to the operative suite, laid in the supine position, given general anesthetic. LMA was placed. She was on antibiotics on the floor. The right lower extremity was then prepped and draped in sterile fashion. Timeout was performed, everyone was in agreement as to the correct side, site, patient, and procedure. I then made an incision along the hematoma, right in the center of it and opened up the skin around, had had such a large hematoma that had . Hematoma was taken out down to the fascia of the anterior compartment and lateral compartments, debrided the skin that was and the other tissue was then coagulated bleeding vessels at that time, then irrigated thoroughly. Cultures were also taken irrigated thoroughly with 3 liters of normal saline and then coagulated. There was still bleeding after that and after thorough debridement, I then placed Adaptic down on the fascia and measured the size of the excised skin and debridement was a 10 x 12 x1 cm deep. It was opened and then put the silver wound VAC on sponge in the wound and covered it with the VAC plastic and cut a hole in the sponge and then applied the wound VAC while ____ suction was attached to the wound VAC. We then covered the leg and Perfecto wrap. She was then awakened and taken to recovery in stable condition. Blood loss was approximately 200 mL. COMPLICATIONS: None. TRANSINT:[id number] Voice Confirmation ID: [id number] DOCUMENT ID: [id number] CARLOS ZAIDI DO at 0814 CC: [id number] DICTATION DATE: 08/15/19 1459 OPERATIONS AND MAINTENANCE SPECIALIST: 08/15/192032 ADM IN [facility] [address] [id number]
--- NOTE | 2019-08-16 10:17 | NUR ---
PATIENT IS ALERT AND AWAKE. SHE REPORTS HER PAIN IS A 10. PAIN MEDICATIONS GIVEN ORDERED. SHE MUST BE FED. I FED HER HER BREAKFAST AND GAVE ALL HER BY MOUTH MEDS WITH OATMEAL. PATIENT DENIES ANY OTHER NEEDS AT THIS TIME. RIGHT ARM IS BACK IN SLING. SHE IS SITTING UP WATCHING TV.
[2019-08-16 16:53] LABS: BILIRUBIN NEGATIVE (NEGATIVE); GLUCOSE NEGATIVE (NEGATIVE); KETONE NEGATIVE (NEGATIVE); NITRITE NEGATIVE (NEGATIVE); SPECIFIC GRAVITY 1.015 (1.005-1.020); UROBILINOGEN NORMAL (NORMAL)
--- NOTE | 2019-08-16 19:10 | NUR ---
PT IS LETHARGIC BUT ASKING FOR PAIN MED HER PAIN MED IS DUE AT 2100 WHEN ASKED PT STATES SHES NOT HURTING BAD IF SHE DOES NOT MOVE BED IS LOW AND LOCKED CALL LIGHT IS WITH PT SRINATHCK IN PLACE
[2019-08-17 00:30] VITALS: BP 133/79
--- NOTE | 2019-08-17 03:41 | NUR ---
I have reviewed this patient and I concur with the Shift Assessment completed by the Licensed Practical Nurse today this shift.
[2019-08-17 04:30] VITALS: BP 169/73
[2019-08-17 09:23] LABS: HEMOGLOBIN 9.7 g/dL (12-16); LYMPHOCYTES 10.6 % (15-50); MCH 30.4 pg (26.0-34.0); MCHC 32.3 g/dL (31.0-37.0); MEAN PLATELET VOLUME 8.6 fL (7.4-10.4); NEUTROPHILS 78.7 % (40-80); PLATELET COUNT 322 10x3/uL (130-400); RBC 3.19 10x6/uL (4.00-5.40); RDW 16.1 % (11.5-14.5)
[2019-08-17 09:25] LABS: WBC 6.7 10x3/uL (4.8-10.8)
[2019-08-17 09:28] LABS: CALC OSMOLALITY 282 mosm/kg (275-300); CALCIUM 8.1 mg/dL (8.5-10.1); CARBON DIOXIDE 29.5 mmol/L (21.0-32.0); CHLORIDE - SERUM 108 mmol/L (98-107); CREATININE - SERUM 0.8 mg/dL (0.6-1.3); GLUCOSE 86 mg/dL (74-106); SODIUM 143 mmol/L (136-145); UREA NITROGEN 9 mg/dL (7-18); eGFR NON AFRICAN AMERICAN 75 mL/min (90-120)
[2019-08-17 09:42] LABS: POTASSIUM - SERUM 3.4 mmol/L (3.5-5.1)
[2019-08-17 10:46] VITALS: BP 153/87
--- NOTE | 2019-08-17 18:06 | NUR ---
1805 OPA DISCONTINUED. PATIENT MAINTAINING PATENT AIRWAY
--- NOTE | 2019-08-17 18:27 | NUR ---
SPOKE WITH CARLOS IN RECOVERY AND HE STATED RIGHT LOWER LEG I & D WITH WOUND VAC EXCHANGE. PT IS ON O2 AT 3L VIA NC. HE STATES PT RECEIVED 150MCG FENTANYL, 4MG ZOFRAN, AND 1G ANCEF.
--- NOTE | 2019-08-17 19:51 | NUR ---
I have reviewed this patient and I concur with the Shift Assessment completed by the Licensed Practical Nurse today this shift.
[2019-08-17 20:00] VITALS: BP 129/74
--- NOTE | 2019-08-17 20:30 | NUR ---
AROUSES EASILY. NO COMPALITNS VOICED. RESP UNLABORED. LAKE WRAP DRESSING TO RLE WITH WOUND VAC INTACT. IV TO LFA INTACT WITHOUT REDNESS OR EDEMA NOTED. CL IN REACH
[2019-08-18] VITALS: BP 117/78
--- NOTE | 2019-08-18 02:24 | NUR ---
I have reviewed this patient and I concur with the Shift Assessment completed by the Licensed Practical Nurse today this shift.
[2019-08-18 04:00] VITALS: BP 112/71
--- NOTE | 2019-08-18 06:23 | OP ---
PATIENT NAME: HAIM FITZGERALD MEDICAL RECORD: [id number] :52 LOCATION:D. D.2135 ADMISSION DATE:08/15/19 SURGEON: CARLOS ZAIDI DO DATE OF OPERATION: 08/17/2019 PROCEDURE PERFORMED: A right lower extremity irrigation and debridement with wound VAC exchange. PREOPERATIVE DIAGNOSIS: Right lower extremity hematoma. POSTOPERATIVE DIAGNOSIS: Right lower extremity hematoma. INDICATION: Ms. Fitzgerald is a 69-year-old female who had a large hematoma on the right lower extremity that expanded to the point where it killed the skin and made a skin necrose and did an I&D two days ago and removed the skin and put a wound VAC on with cultures. Cultures became positive today for gram-positive cocci and then did another I&D today and the cultures after the irrigation and put a wound VAC on with anticipation and put some type of biologic on her to get the leg covered possibly in this next week. Cultures are negative at this time. She is aware of all the risks including infection, bleeding, damage to nerves or vessels, need for further surgery, below-knee amputation, and signed the consent. SURGEON: Carlos Zaidi DO DESCRIPTION OF PROCEDURE: The patient was taken to the operative suite, given a gram of Ancef preoperatively, laid in the supine position, given general anesthetic and LMA was placed. The right lower extremity was then prepped with Betadine and then draped. We then did a timeout. Everyone was in agreement with the correct side, site, patient and procedure. We then irrigated the wound thoroughly with 3 liters normal saline and placed Adaptic down over the fascia on the right lower extremity, lateral side, and put a wound VAC and sponge over that and secured it in place, covered it with the plastic. She was then awakened and taken to recovery in stable condition. BLOOD LOSS: Minimal. COMPLICATION: None. TRANSINT:[id number] Voice Confirmation ID: [id number] DOCUMENT ID: [id number] CARLOS ZAIDI DO at 0623 CC: [id number] DICTATION DATE: 08/17/19 175 NEW CLIENT BANKING SERVICES CLERK: 08/18/19 0025 ADM IN [facility] [id number] [place] [address]
--- NOTE | 2019-08-18 07:05 | NUR ---
RECIEVED REPORT. ASSUMED CARE OF PATIENT. RESTING WITH EYES CLOSED. RESP EVEN AND UNLABORED. NO DISTRESS. CALL LIGHT WITHIN REACH.
[2019-08-18 09:07] VITALS: BP 161/89
--- NOTE | 2019-08-18 09:55 | NUR ---
RESTING IN BED. OREINTED TO DATE AND TIME. PO MEDS TAKEN WITHOUT DIFFICULTY.
--- NOTE | 2019-08-18 12:46 | NUR ---
COMPLETE LINEN CHANGE AND BED BATH PROVIDED. PATIENT REMAINS IN ISOLATION. WOUND VAC TO RIGHT LOWER EXTREMITY PATENT. NO DISTRESS.
[2019-08-18 13:35] VITALS: BP 166/93
--- NOTE | 2019-08-18 13:37 | NUR ---
DIET REQUEST SENT TO DIETARY AT THIS TIME. PATIENT REQUESTING ANOTHER TRAY, SHE STATES SHE IS VERY HUNGRY.
--- NOTE | 2019-08-18 15:30 | NUR ---
COMPLETE LINEN CHANGE PROVIDED. PATIENT ELECTRONIC VIDEO GAMES SERVICER LIGHT EVERY FEW MINUTES CALLING STAFF INTO ROOM. PATIENT WILL DENY NEEDS AND WAIT UNTIL STAFF IS OUT OF THE ROOM AND THEN PUT THE CALL LIGHT ON PREVENTING CLUSTER CARE AND PAIENT IS IN ISOLATION.
--- NOTE | 2019-08-18 19:43 | NUR ---
RECEIVED UP IN BED WITH EYES OPEN AND TV ON. ALERT AND ORIENTED X4. BEDFAST AT THIS TIME. SURGICAL SITER TO RIGHT LOWER LEG WITH DSG INTACT AND WRAPPED WITH LAKE WRAP. NO DRAINAGE OBSERVED. WOUND VAC TO SITE. REMAINS ON CONTACT ISOLATION. LIMITED ROM TO LEFT ARM. RIGHT ARM HAS HUMERUS FX..BRUSING TO UPPER AND LOWER EXTREMITIES. REPORTED FALL PRIOR TO COMMING TO HOSPITAL. DENIES ANY NEEDS AT THIS TIME.
[2019-08-18 20:00] VITALS: BP 101/59
--- NOTE | 2019-08-18 21:45 | NUR ---
IV WAS INFILTRATED WHEN ASSESSED. IV D/C'D AND 22 GA STARTED IN LEFT POSTERIOR WRIST WITH ATTEMPTS X1.
[2019-08-19] VITALS: BP 98/62
[2019-08-19 04:00] VITALS: BP 140/80
--- NOTE | 2019-08-19 07:20 | NUR ---
RECIEVE REPORT. RESTING IN BED WITH EYES CLOSED. RESPIRATIONS NONLABORED. NO SIGNS OF DISTRESS. CONTINUE PLAN OF CARE AND SAFETY PRECAUTIONS.
[2019-08-19 07:30] VITALS: BP 144/81
[2019-08-19 11:30] VITALS: BP 154/92
[2019-08-19 15:30] VITALS: BP 125/80
--- NOTE | 2019-08-19 16:54 | MORECARE ---
CASE MANAGEMENT DISCHARGE SUMMARY PATIENT: HAIM FITZGERALD UNIT: [id number] ADM DATE: 08/15/19 AGE: 69 : 51 SEX: F ROOM/BED: D.2130 AUTHOR: KAREN WILLIAMSON PHYSICIAN: REFERRING PHYSICIAN: EVA OMER MD DATE OF SERVICE: 08/19/19 Discharge Plan Patient Name: HAIM FITZGERALD [facility] [facility] 1950 Planned Disposition: Penitentiary Facility Anticipated Discharge Date: Discharge Date: Expected LOS: Initial Reviewer: [email or web address] Initial Review Date: 08/15/2019 Generated: 08/19/19 5:53 pm Patient Name: HAIM FITZGERALD Page 22283 at 1654 All edits/amendments must be made on the electronic document DICTATION DATE: 08/19/191652 SHANK SORTER: KAYY 08/19/191652 RPT#: [id number] DC DATE: STATUS: ADM IN [facility] [address] [place] [address] END OF REPORT
--- NOTE | 2019-08-19 17:02 | MORECARE ---
CASE MANAGEMENT DISCHARGE SUMMARY PATIENT: HAIM FITZGERALD UNIT: [id number] ADM DATE: 08/15/19 AGE: 69 : 51 SEX: F ROOM/BED: D.0631 AUTHOR: CLAY,DOC PHYSICIAN: REFERRING PHYSICIAN: EVA OMER MD DATE OF SERVICE: 08/19/19 Discharge Plan Patient Name: HAIM FITZGERALD Facility: [facility]:[place] : 1950 Planned Disposition: Half-Way Facility Anticipated Discharge Date: Discharge Date: Expected LOS: Initial Reviewer: [email or web address] Initial Review Date: 08/15/2019 Generated: 08/19/19 6:01 pm Comments DCP- Discharge Planning Updated by [email or web address]: Shaylee Bowden on 08/19/19 4:[address] Patient Name: HAIM FITZGERALD Admission Status: ER Accout number: [id number] Admission Date: 08-15-2019 : 1950 Admission Diagnosis: Attending: EVA OMER Current LOS: 4 Anticipated DC Date: Planned Disposition: Half-Way Facility Primary Insurance: [facility] MEDICARE SOLUTIONS Discharge Planning Comments: CM met with patient to complete initial dc planning assessment. CM educated patient on the CM role and verbal consent given by patient to complete assessment. CM verified patient's address, phone number, and emergency contact phone numbers. Patient is currently in rehab @ [facility]. At discharge patient plans to return to [facility] and feels this is a safe discharge. MONICA form signed by patient for return to [facility]. Patient denied further known discharge needs at this time. . Transportation provider at discharge will be [facility] . CM will continue to follow and will assist as needed with dc plans/needs. Molten Iron Pourer: Shaylee Bowden DCPIA - Discharge Planning Initial Assessment Updated by [email or web address]: Shaylee Bowden on 08/19/19 4:55 pm * Is the patient Alert and Oriented? Yes * PCP NEGRA * Pharmacy [facility] * Preadmission Environment Half-Way Facility * Facility Name [facility] * ADLs Partial Dependent * Partial ADLs (Assistance needed) Ambulation Bathing Dressing Eating Medication Management Toileting Transfers * List name and contact numbers for known caregivers / representatives who currently or will assist patient after discharge: NALLELY REINA - [phone] * Verbal permission to speak to the caregivers and representatives has been obtained from the patient. N/A * Additional services required to return to the preadmission environment? No * Can the patient safely return to the preadmission environment? Yes * Has this patient been hospitalized within the prior 30 days at any hospital? Yes Last DP export: 08/19/19 3:54 pm Patient Name: HAIM FITZGERALD Page 01137 at 1702 All edits/amendments must be made on the electronic document DICTATION DATE: 08/19/191700 MACHINE HELPER: KAYY 08/19/191700 RPT#: [id number] DC DATE: STATUS: ADM IN [facility] [address] [place] [address] END OF REPORT
--- NOTE | 2019-08-19 19:27 | NUR ---
RECEIVED UP IN BED WITH EYES CLOSED. IV TO LT FA.. FX TO RT TIBIA AND RT HUMERUS. LIMITED ROM TO LT ARM. PUREWICK IN PLACE. DENIES ANY NEEDS AT THIS TIME.
[2019-08-19 20:00] VITALS: BP 157/93
[2019-08-20 00:01] VITALS: BP 159/95
[2019-08-20 09:00] VITALS: BP 156/82
[2019-08-20 09:52] VITALS: BP 156/88
--- NOTE | 2019-08-20 11:45 | MORECARE ---
CASE MANAGEMENT DISCHARGE SUMMARY PATIENT: HAIM FITZGERALD UNIT: [id number] ADM DATE: 08/15/19 AGE: 69 : 51 SEX: F ROOM/BED: D.7283 AUTHOR: CLAY,DOC PHYSICIAN: REFERRING PHYSICIAN: EVA MOER MD DATE OF SERVICE: 08/20/19 Discharge Plan Patient Name: HAIM FITZGERALD Facility: [facility]:[place] : 1950 Planned Disposition: Residential Facility Anticipated Discharge Date: Discharge Date: Expected LOS: Initial Reviewer: [email or web address] Initial Review Date: 08/15/2019 Generated: 08/20/19 12:45 pm DCP- Discharge Planning Updated by [email or web address]: Shaylee Bowden on 08/19/19 4:[address] Patient Name: HAIM FITZGERALD Admission Status: ER Accout number: [id number] Admission Date: 08-15-2019 : 1950 Admission Diagnosis: Attending: EVA OMER Current LOS: 4 Anticipated DC Date: Planned Disposition: Residential Facility Primary Insurance: [facility] MEDICARE SOLUTIONS Discharge Planning Comments: CM met with patient to complete initial dc planning assessment. CM educated patient on the CM role and verbal consent given by patient to complete assessment. CM verified patient's address, phone number, and emergency contact phone numbers. Patient is currently in rehab @ [facility]. At discharge patient plans to return to [facility] and feels this is a safe discharge. MONICA form signed by patient for return to [facility]. Patient denied further known discharge needs at this time. . Transportation provider at discharge will be [facility] . CM will continue to follow and will assist as needed with dc plans/needs. Physical Design Engineer: Shaylee Bowden DCPIA - Discharge Planning Initial Assessment Updated by [email or web address]: Shaylee Bowden on 08/19/19 4:55 pm * Is the patient Alert and Oriented? Yes * PCP NEGRA * Pharmacy [facility] * Preadmission Environment Residential Facility * Facility Name [facility] * ADLs Partial Dependent * Partial ADLs (Assistance needed) Ambulation Bathing Dressing Eating Medication Management Toileting Transfers * List name and contact numbers for known caregivers / representatives who currently or will assist patient after discharge: NALLELY REINA - [phone] * Verbal permission to speak to the caregivers and representatives has been obtained from the patient. N/A * Additional services required to return to the preadmission environment? No * Can the patient safely return to the preadmission environment? Yes * Has this patient been hospitalized within the prior 30 days at any hospital? Yes External Providers External Provider: [facility] Next Contact Date: 08/20/2019 Service Request Date: Service Type: Resolution: Reviewer: Comments: Coverage Notice Reviewer: [id number] - Shaylee Bowden Notice Issued Date-Time: 08/19/2019 15:15 Notice Type: Patient Choice Letter Notice Delivered To: Patient Relationship to Patient: Self Acquisitions Analyst Name: Delivery Method: HAND - Hand Delivered Chely Days: Prior Verbal Notification: Yes Recipient Understood Notice: Yes Recipient Signature: Med Rec Note Co-signed by Attending: Coverage Notice Comment: Last DP export: 08/19/19 4:01 pm Patient Name: HAIM FITZGERALD Page 13179 at 1145 All edits/amendments must be made on the electronic document DICTATION DATE: 08/20/19 1145 HIGH SCHOOL IND[employer]S TEACHER: KAYY 08/20/19 1145 RPT#: [id number] DC DATE: STATUS: ADM IN [facility] [address] [place] [address] END OF REPORT
--- NOTE | 2019-08-20 11:52 | MORECARE ---
CASE MANAGEMENT DISCHARGE SUMMARY PATIENT: HAIM FITZGERALD UNIT: [id number] ADM DATE: 08/15/19 AGE: 69 : 51 SEX: F ROOM/BED: D.2134 AUTHOR: CLAY,DOC PHYSICIAN: REFERRING PHYSICIAN: EVA OMER MD DATE OF SERVICE: 08/20/19 Discharge Plan Patient Name: HAIM FITZGERALD Facility: [facility]:[place] : 1950 Planned Disposition: Care Home Facility Anticipated Discharge Date: Discharge Date: Expected LOS: Initial Reviewer: [email or web address] Initial Review Date: 08/15/2019 Generated: 08/20/19 12:52 pm Comments DCP- Discharge Planning Updated by [email or web address]: Shiva Singer on 08/20/19 10:[address] Patient Name: HAIM FITZGERALD Encounter No: [id number] : 1950 Primary Insurance: [facility] MEDICARE SOLUTIONS Anticipated DC Date: Planned Disposition: Care Home Facility External Planned Provider: [facility], MEDICARE REHAB BED DCP follow-up note: CM REVIEWED CHART. PT HAS MANAGED MEDICARE AND WILL REQUIRE NEW PHYSICAL AND OCCUPATIONAL THERAPY EVALUATIONS FOR INSURANCE AUTHORIZATION. CM FAXED UPDATE TO [facility] AT [phone]/ PT HAS MANAGED MEDICARE AND WILL REQUIRE NEW PHYSICAL AND OCCUPATIONAL THERAPY EVALUATIONS FOR INSURANCE AUTHORIZATION. FOR DISCHARGE, FAX DISCHARGE INFORMATION TO [facility] AT [phone]. NURSE REPORT TO BE CALLED TO [facility] AT [phone]. ENRIQUE Wilson DCP- Discharge Planning Updated by [email or web address]: Shaylee Bowden on 08/19/19 4:[address] Patient Name: HAIM FITZGERALD Admission Status: ER Accout number: [id number] Admission Date: 08-15-2019 : 1950 Admission Diagnosis: Attending: EVA OMER Current LOS: 4 Anticipated DC Date: Planned Disposition: Care Home Facility Primary Insurance: [facility] MEDICARE [employer] Discharge Planning Comments: CM met with patient to complete initial dc planning assessment. CM educated patient on the CM role and verbal consent given by patient to complete assessment. CM verified patient's address, phone number, and emergency contact phone numbers. Patient is currently in rehab @ [facility]. At discharge patient plans to return to [facility] and feels this is a safe discharge. MONICA form signed by patient for return to [facility]. Patient denied further known discharge needs at this time. . Transportation provider at discharge will be [facility] . CM will continue to follow and will assist as needed with dc plans/needs. Motor Vehicle Representative: Shaylee Bowden DCPIA - Discharge Planning Initial Assessment Updated by [email or web address]: Shaylee Bowden on 08/19/19 4:55 pm * Is the patient Alert and Oriented? Yes * PCP NEGRA * Pharmacy [facility] * Preadmission Environment Care Home Facility * Facility Name [facility] * ADLs Partial Dependent * Partial ADLs (Assistance needed) Ambulation Bathing Dressing Eating Medication Management Toileting Transfers * List name and contact numbers for known caregivers / representatives who currently or will assist patient after discharge: NALLELY REINA [phone] * Verbal permission to speak to the caregivers and representatives has been obtained from the patient. N/A * Additional services required to return to the preadmission environment? No * Can the patient safely return to the preadmission environment? Yes * Has this patient been hospitalized within the prior 30 days at any hospital? Yes Coverage Notice Reviewer: [id number] - Shaylee Bowden Notice Issued Date-Time: 08/19/2019 15:15 Notice Type: Patient Choice Letter Notice Delivered To: Patient Relationship to Patient: Self Occupational Medicine Physician Name: Delivery Method: HAND - Hand Delivered Chely Days: Prior Verbal Notification: Yes Recipient Understood Notice: Yes Recipient Signature: Med Rec Note Co-signed by Attending: Coverage Notice Comment: Last DP export: 08/20/19 10:46 am Patient Name: HAIM FITZGERALD Page 33452 at 1152 All edits/amendments must be made on the electronic document DICTATION DATE: 08/20/19 1152 LICENSED MASSAGE PRACTITIONER: KAYY 08/20/19 1152 RPT#: [id number] DC DATE: STATUS: ADM IN [facility] [address] [place] [address] END OF REPORT
[2019-08-20 13:58] VITALS: BP 136/91
--- NOTE | 2019-08-20 17:38 | NUR ---
LT WRIST IV INFILTRATED. NEW 22G IV STARTED TO LT FA X1 STICK. SET PT UP FOR DINNER. PT DENIES ANY NEEDS AT THIS TIME. CALL LIGHT IN REACH, NAD NOTED, WILL CONTINUE TO MONITOR.
[2019-08-20 17:40] VITALS: BP 107/70
--- NOTE | 2019-08-20 19:15 | NUR ---
RECEIVED UP IN BED WITH EYES OPEN. ALERT AND ORIENTED X4. REMAINS BEDFAST. DSG TO RT LEG WITH WOUND VAC IN PLACE. DSG CDI. PUREWICK IN PLACE. SCD ON LT LEG AND PLEXUS BOOT TO RIGHT FOOT. REMAINS IN CONTACT ISOLATION. DENIES ANY NEEDS AT THIS TIME.
[2019-08-20 22:23] VITALS: BP 133/76
[2019-08-21 00:48] VITALS: BP 130/87
[2019-08-21 12:00] VITALS: BP 143/85
[2019-08-21 13:58] VITALS: Ht 165.1 cm; Wt 70.3 kg
[2019-08-21 16:00] VITALS: BP 147/87
--- NOTE | 2019-08-21 19:23 | NUR ---
EVENING ROUNDS COMPLETE. PT SITTING UP IN BED. NO SIGNS OF DISTRESS. AAOX4. PT DENIES ANY PAIN OR NEEDS AT THIS TIME. CL IN REACH, BED IN LOWEST POSITION.
[2019-08-21 22:02] VITALS: BP 137/83
[2019-08-22 01:14] VITALS: BP 126/83
[2019-08-22 06:51] VITALS: BP 155/71
--- NOTE | 2019-08-22 08:00 | NUR ---
PER KAMRAN BERNARD INFECTION CONTROL NURSE, PT CAN COME OFF ISOLATION.
--- NOTE | 2019-08-22 08:17 | NUR ---
AM MEDS GIVEN AT THIS TIME, WITH A LITTLE SIP OF WATER. PT RESTING COMFORTABLY IN BED, A/O X4, RESP EVEN AND NONLABORED ON 2L. LT FA IV INFUSING VANC. PT DENIES ANY NEEDS AT THIS TIME. CALL LIGHT IN REACH, BEDSIDE RAILS X2, NAD NOTED, WILL CONTINUE TO MONITOR.
--- NOTE | 2019-08-22 09:05 | NUR ---
PT TO OR
[2019-08-22 10:50] VITALS: BP 106/78
--- NOTE | 2019-08-22 10:59 | NUR ---
RECEIVED PT BACK TO ROOM 2134. PT DROWSY BUT EASILY AROUSES TO VOICE. VITAL SIGNS STABLE. PLACED PT ON FREQUENT VITAL SIGNS. DRESSING TO RT LOWER LEG CDI, WOUND VAC IN PLACE. PT DENIES ANY NEEDS AT THIS TIME. CALL LIGHT IN REACH,NAD NOTED, WILL CONTINUE TO MONITOR.
--- NOTE | 2019-08-22 13:38 | OP ---
PATIENT NAME: HAIM FITZGERALD MEDICAL RECORD: [id number] :52 LOCATION:D. D.2135 ADMISSION DATE:08/15/19 SURGEON: CARLOS ZAIDI DO DATE OF OPERATION: 08/22/2019 PROCEDURE PERFORMED: Right lower extremity irrigation, debridement, with wound VAC exchange. PREOPERATIVE DIAGNOSIS: Right lower extremity open wound. POSTOPERATIVE DIAGNOSIS: Right lower extremity open wound. INDICATIONS: Ms. Fitzgerald is a 69-year-old female who has had a right open wound due to hematoma, did an I and D last week, put a wound VAC on it, cultured it, repeated it on Tuesday on the . This grew out Staph epi again after the culture, after washing it out and plan to do some kind of coverage with biologics, but due to the fact she still grew out Staph epi we could not do that, so we did a wound VAC exchange. She is now understanding that she may need a wound VAC for a few weeks in order to clear up the infection, she will be on IV antibiotics for continued period. Once that infection has cleared up, the plan is to put some cotton biologic to cover the wound. She was aware of the risks of surgery including infection, bleeding, damage to nerves and vessels. She will need further surgeries and continued pain. She signed the consent. SURGEON: Carlos Zaidi DO DESCRIPTION OF PROCEDURE: The patient was taken to the operative suite, laid in supine position, given general anesthetic, LMA was placed. She had been given antibiotics on the floor. The right lower extremity was then prepped and draped in sterile fashion. Timeout was performed, everyone was in agreement with the correct side, site, patient, the procedure. We then began by pouring Betadine over the wound and scrubbing it with brushes and sponges and then irrigating with 3 liters normal saline. I then cultured the wound and put Adaptic down and then applied the wound VAC. She was then awakened and taken to recovery in stable condition. BLOOD LOSS: Minimal. COMPLICATION: None. TRANSINT:[id number] Voice Confirmation ID: [id number] DOCUMENT ID: [id number] CARLOS ZAIDI DO at 1338 CC: [id number] DICTATION DATE: 08/22/19 1011 ASSURANCE SENIOR MANAGER: 08/22/19 1313 ADM IN [facility] [address] [facility], [facility]
[2019-08-22 14:26] VITALS: BP 103/72
--- NOTE | 2019-08-22 15:11 | NUR ---
PERCOCET GIVEN FOR PAIN LEVEL OF 7/10. ALSO GAVE SOMA. CLEANED PT UP FROM INCONT EPISODE AND PROVIDED PT WITH FRESH CUP OF ICE. PT DENIES ANY OTHER NEEDS AT THIS TIME. CALL LIGHT IN REACH, NAD NOTED,W ILL CONTINUE TO MONITOR.
[2019-08-22 18:31] VITALS: BP 128/77
[2019-08-22 20:00] VITALS: BP 89/62
--- NOTE | 2019-08-23 00:35 | NUR ---
PRN SOMA GIVEN CALL LIGHT WITH IN REACHWILL CONTINUE TO MONITOR
[2019-08-23 01:33] VITALS: BP 119/69
--- NOTE | 2019-08-23 03:54 | NUR ---
PT LYING IN BED RESTING WITH EYES CLOSED. EASILY AWAKEN WITH VOICE STIMULATION. ASSISTED PT WITH BEDPAN. CALL LIGHT WITH IN REACH BEDS IN LOWEST POSITON. PT ENCOURAGED TO CALL FOR HELP WHEN NEEDED. WILL CONTINUE TO MONITOR.
[2019-08-23 04:00] VITALS: BP 121/77
--- NOTE | 2019-08-23 04:54 | NUR ---
I have reviewed this patient and I concur with the Shift Assessment completed by the Licensed Practical Nurse today this shift.
[2019-08-23 09:35] VITALS: BP 128/76
[2019-08-23 13:42] VITALS: BP 132/76
--- NOTE | 2019-08-23 17:31 | NUR ---
OT NOTE: PT COMPLETED BED MOB TASKS WITH CGA/MIN A. PT COMPLETED ADL MOB WITH RW REQUIRED CGA/MIN A. PT REQUIRED EXTRA TIME. PT REFUSED ASSISTANCE OR DIRECTIONS. PT REQUIRED EXTRA ASSISTANCE SECONDARY TO MEDICAL EQUIPMENT MANAGEMENT. [phone] THANK YOU,ELIF JONES
[2019-08-23 18:32] VITALS: BP 1073/71
[2019-08-23 20:00] VITALS: BP 120/70
[2019-08-24] VITALS: BP 116/78
[2019-08-24 04:00] VITALS: BP 137/79
[2019-08-24 09:10] VITALS: BP 141/78
--- NOTE | 2019-08-24 10:12 | NUR ---
ASSESSMENT DONE. DENIES NEEDS
--- NOTE | 2019-08-24 12:02 | NUR ---
OT NOTE: PT VERY LETHARGIC UPON ENTERING ROOM. PT ASKED FOR ASSISTANCE TO GO TO BATHROOM. PT GIVES CONSTANT INSTRUCTIONS THROUGHOUT TMT SESSION. FREQ CUES FOR NWB THROUGH R UE..PT STATES THAT SHE IS NOT PUTTING WT THROUGH IT, HOWEVER, APPEARS THOUGH SHE IS. AMB TO BATHROOM WITH MIN ASSIST; EXTENSIVE TIME REQUIRED FOR TMT PT IS VERY SLOW AND THOROUGH ABOUT HOW SHE WANTS THINGS DONE. MIN ASSIST WITH TOILET TRANSFER; MAX ASSIST WITH TOILET HYGIENE; MOD ASSIST FOR SIT TO STAND FOR TRANSFER; IN ROOM AMBULATION WITH RW AND MIN ASSIST. MAX ASSIST FOR PERINEAL CARE; MAX ASSIST TO LUIS GOWN; MAX ASSIST TO LUIS/DOFF SHOES/SOCKS. BACK TO BED WITH MIN ASSIST AND EXT TIME. APPROX 40 MIN SPENT WITH PT TODAY. ANDREI HAWKINS, OTR/L [phone]
[2019-08-24 12:54] VITALS: BP 111/69
--- NOTE | 2019-08-24 12:57 | NUR ---
Nutrition Follow-up: Pt eating breakfast at time of visit this AM. Reports fairly good appetite and has been eating >50% of meals for the past 2-3 days. Denies N/V/C/D. Diet: Cardiac No new wt; last wt: 155# (08/20) Last BM: 08/22 per pt No new labs Meds noted: Oscal, Folate, Colace, vitamin B12, vitamin D, Protonix -Encourage PO intake and honor food preferences within diet restrictions. -Discussed nutrition supplements. -Monitor wt. -RD following.
--- NOTE | 2019-08-24 15:45 | NUR ---
I have reviewed this patient and I concur with the Shift Assessment completed by the Licensed Practical Nurse today this shift.
--- NOTE | 2019-08-24 17:28 | MORECARE ---
CASE MANAGEMENT DISCHARGE SUMMARY PATIENT: HAIM FITZGERALD UNIT: [id number] ADM DATE: 08/15/19 AGE: 69 : 51 SEX: F ROOM/BED: D.2133 AUTHOR: CLAY,DOC PHYSICIAN: REFERRING PHYSICIAN: EVA OMER MD DATE OF SERVICE: 08/24/19 Discharge Plan Patient Name: HAIM FITZGERALD Facility: [facility]:[place] : 1950 Planned Disposition: Long Term Facility Anticipated Discharge Date: Discharge Date: Expected LOS: Initial Reviewer: [id number] Initial Review Date: 08/15/2019 Generated: 08/24/19 6:27 pm Comments DCP- Discharge Planning Updated by [email or web address]: Shiva Singer on 08/24/19 4:[address] Patient Name: HAIM FITZGERALD Encounter No: [id number] : 1950 Primary Insurance: [facility] MEDICARE SOLUTIONS Anticipated DC Date: Planned Disposition: Long Term Facility External Planned Provider: [facility], MEDICARE REHAB BED DCP follow-up note: CM REVIEWED CHART. PT HAS MANAGED MEDICARE AND WILL REQUIRE INSURANCE AUTHORIZATION. PT WILL ALSO NEED PICC OR MID LINE IF IV MEDICATION ARE NEEDED FOR EXTENDED PERIOD OF TIME AT FACILITY. CM FAXED UPDATE TO [facility] AT [phone]. PT HAS MANAGED MEDICARE AND WILL REQUIRE INSURANCE AUTHORIZATION AND WILL NEED PICC OR MID LINE IF IV MEDICATION ARE NEEDED FOR EXTENDED PERIOD OF TIME AT FACILITY. FOR DISCHARGE, FAX DISCHARGE INFORMATION TO [facility] AT [phone]. NURSE REPORT TO BE CALLED TO [facility] AT [phone]. Shiva Singer, CASE MANAGEMENT DCP- Discharge Planning Updated by [email or web address]: Shiva Singer on 08/20/19 10:[address] Patient Name: HAIM FITZGERALD Encounter No: [id number] : 1950 Primary Insurance: [facility] MEDICARE SOLUTIONS Anticipated DC Date: Planned Disposition: Long Term Facility External Planned Provider: [facility], MEDICARE REHAB BED DCP follow-up note: CM REVIEWED CHART. PT HAS MANAGED MEDICARE AND WILL REQUIRE NEW PHYSICAL AND OCCUPATIONAL THERAPY EVALUATIONS FOR INSURANCE AUTHORIZATION. CM FAXED UPDATE TO [facility] AT [phone]/ PT HAS MANAGED MEDICARE AND WILL REQUIRE NEW PHYSICAL AND OCCUPATIONAL THERAPY EVALUATIONS FOR INSURANCE AUTHORIZATION. FOR DISCHARGE, FAX DISCHARGE INFORMATION TO [facility] AT [phone]. NURSE REPORT TO BE CALLED TO [facility] AT [phone]. Shiva Singer, CASE MANAGEMENT DCP- Discharge Planning Updated by [id number]: Shaylee Bowden on 08/19/19 4:[address] Patient Name: HAIM FITZGERALD Admission Status: ER Accout number: [id number] Admission Date: 08-15-2019 : 1950 Admission Diagnosis: Attending: EVA OMER Current LOS: 4 Anticipated DC Date: Planned Disposition: Long Term Facility Primary Insurance: [facility] MEDICARE SOLUTIONS Discharge Planning Comments: CM met with patient to complete initial dc planning assessment. CM educated patient on the CM role and verbal consent given by patient to complete assessment. CM verified patient's address, phone number, and emergency contact phone numbers. Patient is currently in rehab @ [facility]. At discharge patient plans to return to [facility] and feels this is a safe discharge. MONICA form signed by patient for return to [facility]. Patient denied further known discharge needs at this time. . Transportation provider at discharge will be [facility] . CM will continue to follow and will assist as needed with dc plans/needs. Car Storer: Shaylee Bowden DCPIA - Discharge Planning Initial Assessment Updated by [email or web address]: Shaylee Bowden on 08/19/19 4:55 pm * Is the patient Alert and Oriented? Yes * PCP [facility] * Pharmacy [facility] * Preadmission Environment Long Term Facility * Facility Name [facility] * ADLs Partial Dependent * Partial ADLs (Assistance needed) Ambulation Bathing Dressing Eating Medication Management Toileting Transfers * List name and contact numbers for known caregivers / representatives who currently or will assist patient after discharge: NALLELY REINA - [phone] * Verbal permission to speak to the caregivers and representatives has been obtained from the patient. N/A * Additional services required to return to the preadmission environment? No * Can the patient safely return to the preadmission environment? Yes * Has this patient been hospitalized within the prior 30 days at any hospital? Yes Coverage Notice Reviewer: [id number] Vincenzo Bowden Notice Issued Date-Time: 08/19/2019 15:15 Notice Type: Patient Choice Letter Notice Delivered To: Patient Relationship to Patient: Self Bag Making Machine Tender Name: Delivery Method: HAND - Hand Delivered Chely Days: Prior Verbal Notification: Yes Recipient Understood Notice: Yes Recipient Signature: Med Rec Note Co-signed by Attending: Coverage Notice Comment: Last DP export: 08/20/19 10:52 am Patient Name: HAIM FITZGERALD Page [id number] at 1728 All edits/amendments must be made on the electronic document DICTATION DATE: 08/24/191726 DRYER FEEDER: KAYY 08/24/191726 RPT#: [id number] DC DATE: STATUS: ADM IN [facility] [address] [place] [address] END OF REPORT
[2019-08-24 17:50] VITALS: BP 157/82
--- NOTE | 2019-08-24 19:10 | NUR ---
BEDSIDE REPORT RECEIVED FROM DAY SHIFT, PT CARE ASSUMED. INTRODUCED SELF AND WROTE NAME ON BOARD. PT SITTING UP IN BED, WATCHING TV, AAOX4. DENIES ANY NEEDS AT THIS TIME. BED IN LOWEST POSITION, SR X2, CALL LIGHT WITHIN REACH. WILL CONTINUE TO MONITOR.
[2019-08-24 20:30] VITALS: BP 121/76
[2019-08-25 00:30] VITALS: BP 121/72
[2019-08-25 04:30] VITALS: BP 169/93
[2019-08-25 08:58] VITALS: BP 122/71
[2019-08-25 12:20] VITALS: BP 127/75
--- NOTE | 2019-08-25 12:43 | NUR ---
I have reviewed this patient and I concur with the Shift Assessment completed by the Licensed Practical Nurse today this shift.
[2019-08-25 17:56] VITALS: BP 118/79
--- NOTE | 2019-08-25 19:10 | NUR ---
BEDSIDE REPORT RECEIVED FROM DAY SHIFT, PT CARE ASSUMED. WROTE NAME ON BOARD. PT SITTING UP IN BED, WATCHING TV, AAOX4. DENIES ANY NEEDS AT THIS TIME. BED IN LOWEST POSITION, SR X2, CALL LIGHT WITHIN REACH. WILL CONTINUE TO MONITOR.
[2019-08-25 20:00] VITALS: BP 126/68
[2019-08-26] VITALS: BP 139/78
[2019-08-26 04:00] VITALS: BP 133/87
[2019-08-26 10:00] VITALS: BP 158/90
[2019-08-26 12:20] VITALS: BP 136/69
[2019-08-26 16:37] VITALS: BP 151/78
--- NOTE | 2019-08-26 19:10 | NUR ---
ANSWERED LIGHT AND SPOKE WITH PT. PT EXPRESSES A BETTER MOOD THEN WHEN I HAD HER A FEW DAYUS BACK EXPRESSES NEED FOR A PAIN PILL I WILL CHECK AND GIVE IF DUE BED IS LOW AND LOCKED CALL LIGHT IS WITH PT
[2019-08-26 20:00] VITALS: BP 142/96
[2019-08-27 00:30] VITALS: BP 133/77
[2019-08-27 04:00] VITALS: BP 162/78
--- NOTE | 2019-08-27 05:06 | NUR ---
I have reviewed this patient and I concur with the Shift Assessment completed by the Licensed Practical Nurse today this shift.
--- NOTE | 2019-08-27 07:41 | NUR ---
PATIENT IS ALERT AND AWAKE. DENIES ANY NEEDS AT THIS TIME.
[2019-08-27 08:34] VITALS: BP 127/82
--- NOTE | 2019-08-27 08:48 | NUR ---
Dr. Maldonado is changing out wound vac dressings in OR.
--- NOTE | 2019-08-27 10:51 | MORECARE ---
CASE MANAGEMENT DISCHARGE SUMMARY PATIENT: HAIM FITZGERALD UNIT: [id number] ADM DATE: 08/15/19 AGE: 69 : 51 SEX: F ROOM/BED: D.1488 AUTHOR: CLAY,DOC PHYSICIAN: REFERRING PHYSICIAN: EVA OMER MD DATE OF SERVICE: 08/27/19 Discharge Plan Patient Name: HAIM FITZGERALD Facility: [facility]:[place] : 1950 Planned Disposition: Penitentiary Facility Anticipated Discharge Date: Discharge Date: Expected LOS: Initial Reviewer: [email or web address] Initial Review Date: 08/15/2019 Generated: 08/27/19 11:50 am Comments DCP- Discharge Planning Updated by [id number]: Shiva Singer on 08/27/19 9:[address] Patient Name: HAIM FITZGERALD Encounter No: [id number] : 1950 Primary Insurance: [facility] MEDICARE SOLUTIONS Anticipated DC Date: Planned Disposition: Penitentiary Facility External Planned Provider: [facility], MEDICARE REHAB BED DCP follow-up note: [facility]ED UPDATE [facility] AT [phone]. PT HAS MANAGED MEDICARE AND WILL REQUIRE INSURANCE AUTHORIZATION AND WILL NEED PICC OR MID LINE IF IV MEDICATION ARE NEEDED FOR EXTENDED PERIOD OF TIME AT FACILITY. FOR DISCHARGE, FAX DISCHARGE INFORMATION TO [facility] AT [phone]. NURSE REPORT TO BE CALLED TO [facility] AT [phone]. Shiva Singer, CASE MANAGEMENT DCP- Discharge Planning Updated by [email or web address]: Shiva Singer on 08/24/19 4:[address] Patient Name: HAIM FITZGERALD Encounter No: [id number] : 1950 Primary Insurance: [facility] MEDICARE SOLUTIONS Anticipated DC Date: Planned Disposition: Penitentiary Facility External Planned Provider: [facility], MEDICARE REHAB BED DCP follow-up note: CM REVIEWED CHART. PT HAS MANAGED MEDICARE AND WILL REQUIRE INSURANCE AUTHORIZATION. PT WILL ALSO NEED PICC OR MID LINE IF IV MEDICATION ARE NEEDED FOR EXTENDED PERIOD OF TIME AT FACILITY. CM FAXED UPDATE TO [facility] AT [phone]. PT HAS MANAGED MEDICARE AND WILL REQUIRE INSURANCE AUTHORIZATION AND WILL NEED PICC OR MID LINE IF IV MEDICATION ARE NEEDED FOR EXTENDED PERIOD OF TIME AT FACILITY. FOR DISCHARGE, FAX DISCHARGE INFORMATION TO [facility] AT [phone]. NURSE REPORT TO BE CALLED TO [facility] AT [phone]. Shiva Singer CASE MANAGEMENT DCP- Discharge Planning Updated by [email or web address]: Shiva Singer on 08/20/19 10:[address] Patient Name: HAIM FITZGERALD Encounter No: [id number] : 1950 Primary Insurance: [facility] MEDICARE SOLUTIONS Anticipated DC Date: Planned Disposition: Penitentiary Facility External Planned Provider: [facility], [facility] DCP follow-up note: CM REVIEWED CHART. PT HAS MANAGED MEDICARE AND WILL REQUIRE NEW PHYSICAL AND OCCUPATIONAL THERAPY EVALUATIONS FOR INSURANCE AUTHORIZATION. CM FAXED UPDATE TO [facility] AT [phone]/ PT HAS MANAGED MEDICARE AND WILL REQUIRE NEW PHYSICAL AND OCCUPATIONAL THERAPY EVALUATIONS FOR INSURANCE AUTHORIZATION. FOR DISCHARGE, FAX DISCHARGE INFORMATION TO [facility] AT [phone]. NURSE REPORT TO BE CALLED TO [facility] AT [phone]. Shiva Singer CASE MANAGEMENT DCP- Discharge Planning Updated by [id number]: Shaylee Bowden on 08/19/19 4:[address] Patient Name: HAIM FITZGERALD Admission Status: ER Accout number: [id number] Admission Date: 08-15-2019 : 1950 Admission Diagnosis: Attending: EVA OMER Current LOS: 4 Anticipated DC Date: Planned Disposition: Penitentiary Facility Primary Insurance: [facility] MEDICARE SOLUTIONS Discharge Planning Comments: CM met with patient to complete initial dc planning assessment. CM educated patient on the CM role and verbal consent given by patient to complete assessment. CM verified patient's address, phone number, and emergency contact phone numbers. Patient is currently in rehab @ [facility]. At discharge patient plans to return to [facility] and feels this is a safe discharge. MONICA form signed by patient for return to [facility]. Patient denied further known discharge needs at this time. . Transportation provider at discharge will be [facility] . CM will continue to follow and will assist as needed with dc plans/needs. Fire Hazard Inspector: Shaylee Bowden DCPIA - Discharge Planning Initial Assessment Updated by [id number]: Shaylee Bowden on 08/19/19 4:55 pm * Is the patient Alert and Oriented? Yes * PCP [facility] * [facility] * Preadmission Environment Penitentiary Facility * [facility] * ADLs Partial Dependent * Partial ADLs (Assistance needed) Ambulation Bathing Dressing Eating Medication Management Toileting Transfers * List name and contact numbers for known caregivers / representatives who currently or will assist patient after discharge: NALLELY REINA [phone] * Verbal permission to speak to the caregivers and representatives has been obtained from the patient. N/A * Additional services required to return to the preadmission environment? No * Can the patient safely return to the preadmission environment? Yes * Has this patient been hospitalized within the prior 30 days at any hospital? Yes Coverage Notice Reviewer: [id number] - Shaylee Bowden Notice Issued Date-Time: 08/19/2019 15:15 Notice Type: Patient Choice Letter Notice Delivered To: Patient Relationship to Patient: Self Assembly Line Upholsterer Name: Delivery Method: HAND - Hand Delivered Chely Days: Prior Verbal Notification: Yes Recipient Understood Notice: Yes Recipient Signature: Med Rec Note Co-signed by Attending: Coverage Notice Comment: Last DP export: 08/24/19 4:28 p Patient Name: HAIM FITZGERALD Page [phone] at 1051 All edits/amendments must be made on the electronic document DICTATION DATE: 08/27/19 1050 WASTE ELIMINATION: KAYY 08/27/19 1050 RPT#: [id number] DC DATE: STATUS: ADM IN [facility] [address] [place] [address] END OF REPORT
[2019-08-27 11:00] VITALS: BP 121/81
--- NOTE | 2019-08-27 15:22 | NUR ---
OT NOTE: PT REMAINS VERY DEMANDING; ORDERS THERAPISTS AROUND CONSTANTLY. WHEN ATTEMPTS ARE MADE TO HAVE PT DO THINGS MORE INDEPENDENTLY, SHE BECOMES SLIGHTLY AGITATED. PT ABLE TO PERFORM BED MOB INCLUDING SUPINE TO SIT WITH SBA AND EXT TIME. CUES FOR PT TO NOT USE R UE TO PUSH UP FROM BED AND PT INSISTS THAT SHE IS NOT USING R UE. SIT TO STAND IWTH CGA; PT CONTINUALLY ASKING THERAPY TO PUT ON SOCKS, PUT ON GOWN, PULL IT DOWN IN THE BACK, DONT PUT ON GAIT BELT, REMOVE IV, MOVE CORDS, REMOVE TRAY, CHANGE HER SHEETS, MOVE OUT OF HER WAY, DONT TOUCH THE WALKER, ETC ETC... PT AMB APPROX 290 FT WITH WALKER USING 1 HAND AND APPROX 13-15 REST BREAKS. RETURNED TO ROOM WITH SAME DEMANDS PREVIOUSLY. WAS ABLE TO GET PT TO REMOVE HER SLIPPERS USING FEET TO ALLOW FOR INCREASED INDEP; BACK TO BED WITH VERY MINIMAL ASSIST. PT WANTING TO SIT UP ON EOB BUT DIDNT WANT THERAPIST TO LEAVE BECAUSE SHE WOULD NOT BE SITTING UP FOR LONG. EXPLAINED TO PT THAT SHE COULD RETURN TO BED WITHOUT ASSIST, SHE WAS ABLE TO DO, BUT SHE WANTED EVERY PILLOW POSITIONED JUST RIGHT; SCDS IN PLACE; REFUSED TO ATTEMPT TO PULL UP SHEETS; HEAD AND FEET HAD TO BE RAISED FOR HER, ETCC ANDREI HAWKINS, OTR/L [phone]
--- NOTE | 2019-08-27 17:59 | NUR ---
OT NOTE: PT COMPLETED SUPINE TO SIT WITH CGA. PT COMPLETED SIT TO STAND WITH CGA. PT COMPLETED SELF FEEDING TASK WITH SET UP. PT COMPLETED FACE WASH WITH SET UP. PT REQUIRED EXTRA TIME. PT REQUIRED EXTRA ASSIST DUE TO MEDICAL EQUIPMENT. [phone] THANK YOU,ELIF JONES
--- NOTE | 2019-08-27 19:29 | NUR ---
PT WANTING SOMA AND PAIN MED BED LOW AND LOCKED PT IS AN UPRIGHT POSITION PT CO BEING INCONTINANT OF URINE WILL GET HELP TO CHANGE PT
[2019-08-27 20:00] VITALS: BP 145/94
[2019-08-28] VITALS (9 sets, daily range): BP systolic 103–135; BP diastolic 64–85
--- NOTE | 2019-08-28 05:35 | NUR ---
I have reviewed this patient and I concur with the Shift Assessment completed by the Licensed Practical Nurse today this shift.
--- NOTE | 2019-08-28 09:45 | NUR ---
CALLED [facility] AND LET THEM KNOW XARELTO WAS GIVEN YESTRDAY 1757. THEY STATED THEY WILL CALL AND LET DR. ZAIDI KNOW AND SEE WHAT HE WANTS TO DO.
--- NOTE | 2019-08-28 09:48 | NUR ---
SPOKE WITH JOSEPHINE IN SX AND SGE STATES IS STILL GOING TO DO THE SX. I VERBALIZED UNDERSTANDING.
--- NOTE | 2019-08-28 12:57 | NUR ---
Nutrition Follow-up: NPO for I&D etc today. No new wt; last wt: 155# (08/20) No new labs Meds noted: Oscal, Folic Acid, Colace, vitamin B12, vitamin D, Protonix -Rec resume diet following surgery when medically feasible.. -RD following.
--- NOTE | 2019-08-28 14:04 | NUR ---
1403 PATIENT AROUSABLE, LMA DISCONTINUED. AIRWAY PATENT, RESPIRATIONS DEEP AND EVEN
--- NOTE | 2019-08-28 14:40 | NUR ---
PT ARRIVED TO FLOOR. EYES CLOSED. CHEST RISING AND FALLING. AROUSES TO TOUCH. O2 AT 3L VIA NC. VS STABLE. RIGHT LOWER LEG WOUND VAC DRESSING SUCTIONING DRESSING C/D/I. WILL CONTINUE TO MONITOR. BED LOW. CL IN REACH.
--- NOTE | 2019-08-28 16:11 | NUR ---
I have reviewed this patient and I concur with the Shift Assessment completed by the Licensed Practical Nurse today this shift.
--- NOTE | 2019-08-28 16:30 | NUR ---
REPORT GIVEN TO PAUL LIGHT.
--- NOTE | 2019-08-28 17:36 | OP ---
PATIENT NAME: HAIM FITZGERALD MEDICAL RECORD: [id number] :[birth year] LOCATION:D.MS [id number] ADMISSION DATE:08/15/19 SURGEON: CARLOS ZAIDI DO DATE OF OPERATION: 08/28/2019 PROCEDURE PERFORMED: Right lower extremity irrigation and debridements and Kerecis application, 7 x 10 cm graft. PREOPERATIVE DIAGNOSIS: Right lower extremity open wound, it was a 10 x 12 x 1 cm in size. POSTOPERATIVE DIAGNOSIS: Right lower extremity open wound, it was a 10 x 12 x 1 cm in size. INDICATIONS: Ms. Fitzgerald is a 69-year-old female who has had a right lower extremity hematoma originally that expanded and killed the skin. I did a debridement on that and she has been having wound VAC changes every 4-5 days for the past 2 weeks and we have been culturing it, last culture on the was negative for any bacteria. There was none seen on her Gram stain and after 5 or 6 days of growth there was none seen. I then decided that the Kerecis would be the best option due to the size of the wound and she was not in great health, did not think an epidermal skin graft would do well with her due to her history of infection and what not. Therefore, we got the graft. She is aware of the risks including further infection, failure of the graft, need for further surgery including below-knee amputation and signed the consent. SURGEON: Carlos Zaidi DO DESCRIPTION OF PROCEDURE: The patient was taken to the operative suite, laid in the supine position, given general anesthetic and LMA was placed. She was then moved over to the OR table where she has a fractured right proximal humerus. It was quite painful. When she was moved in position, the right lower extremity was prepped and draped in sterile fashion. Timeout was performed, everyone was in agreeance with the correct site, side, patient and procedure. She was receiving antibiotics on the floor. She got 2 grams of Ancef prior to starting this. We then did a debridement with a brush and a curette of the 10 x 12 x 1 cm wound and after that was done and irrigated with approximately 500 mL normal saline, placed the graft through a mesher, meshed it and expanded to fit the wound very nicely. We then undermined the skin and tucked it under and secured into place with a 4-0 Monocryl and then I was assisted by Eric Tadeo, certified surgical or first assist registered nurse. He assisted with this part as well as applying wound VAC at the end. Once the graft was secured, we applied Restor Prevena VAC as it was large enough and it could stay on for 2 weeks on the skin. We put that on there and sealed it and then held a good suction. I then awakened the patient and she was taken to recovery in stable condition. BLOOD LOSS: Minimal. COMPLICATIONS: None. TRANSINT:[id number] Voice Confirmation ID: [id number] DOCUMENT ID: [id number] OPERATIVE REPORT [id number] HAIM FITZGERALD MICHAEL D, DO at 1736 CC: [id number] DICTATION DATE: 08/28/19 1336 CLASSICS PROFESSOR: 08/28/19 1709 ADM IN [facility] [address] [place] [address]
--- NOTE | 2019-08-28 19:30 | NUR ---
PATIENT SLEEPING WHEN ENTERING THE ROOM. CALLED NAMED AND TOUCHED, PATIENT SLIGHTLY AROUSED. TOOK FEW MINUTES TO WAKE PATIENT. WHEN AWAKE, ABLE TO TELL NAME, , AND REASONING FOR HOSPITAL STAY. ASSESSED RIGHT LOWER EXTREMETY. WOUND VAC IN PLACE AND SUCTIONING AND 125 MMHQ. NO LEAKS NOTED. ASSESSED BILATERAL HEELS, REDNESS NOTED. APPLIED MEPILEX BORDERS BILATERALLY AND SECURED WITH TAPE. SCD TO THE LEFT LOWER EXTREMETY. APPLIED PINK BOOTY TO THE RIGHT HEEL. PATIENT STATED SHE NEEDED TO URINATE, NO BSC AT THIS TIME. ASSISTED PATIENT WITH BED BAIN. PATIENT STATES BURNING WHEN URINATING. NYSTATIN POWDER APPLIED PER ORDER. PATIENT SLEPT THROUGH DINNER, WARMED UP AND PROVIDED TO PATIENT. PATIENT HAS WEAKNESS NOTED IN THE RIGHT UPPER EXTREMETY. STATES "IT'S BROKEN TOO" NO SLING ON AT THIS TIME. PATIENT USING LEFT ARM TO HOLD AND BRACE RIGHT ARM. EDUCATED PATIENT ON PILLOW FOR SUPPORT AND PROVIDED FOR PATIENT. ASSISTED IN POSITIONING, PATIENT STATES IT FEELS MUCH BETTER. SET UP FOOD TRAY AND DR. BOSS PER REQUEST. RESPIRATORY IN ROOM AT THIS TIME. CALL LIGHT IN REACH. CPOC.
--- NOTE | 2019-08-28 19:55 | NUR ---
PROVIDED BEDSIDE COMMODE FOR PATIENT.
--- NOTE | 2019-08-28 20:20 | NUR ---
IN AND OUT OF PATIENT ROOM SEVERAL TIMES. PATIENT APPEARS TO BE REMEMBERING QUESTIONS AND HAVING CONCERNS THAT SHE COULD NOT RECALL EARLIER. PATIENT VERY EMOTIONAL, CRYING SEVERAL TIMES. PROVIDING SUPPORT AND ANSWERING QUESTIONS BEST THIS NURSE COULD, WITHIN SCOPE. PROVIDED REASSURANCE TO PATIENT. CPOC.
--- NOTE | 2019-08-28 21:38 | NUR ---
PATIENT CONTINUALLY HITTING CALL LIGHT. REPEATING SEVERAL QUESTIONS ALREADY ANSWERED. ASSISTING PATIENT WITH SEVERAL DIFFERENT NEEDS.
--- NOTE | 2019-08-28 21:58 | NUR ---
ASSISTED TO THE BEDSIDE COMMODE.
--- NOTE | 2019-08-29 00:10 | NUR ---
CHECKED ON PATIENT. SLEEPING WITH NO SIGNS OF DISTRESS. WOKE PATIENT AND ASSESSED PAIN. DENIES PAIN MEDICINE AT THIS TIME. CPOC.
[2019-08-29 00:30] VITALS: BP 114/77
[2019-08-29 04:00] VITALS: BP 98/66
--- NOTE | 2019-08-29 04:07 | NUR ---
I have reviewed this patient and I concur with the Shift Assessment completed by the Licensed Practical Nurse today this shift.
--- NOTE | 2019-08-29 07:35 | NUR ---
RESTING IN BED, NO DISTRESS NOTED, WOUND VAC TO RIGHT LOWER LEG, DR ZAIDI IN ROOM, O2 PER WI, SL IN PLACE
[2019-08-29] MEDS ORDERED: PERCOCET 10-321 EAC1 PO (07:54)
[2019-08-29] MEDS ORDERED: KEFLEX500 MG PO (07:55)
[2019-08-29] MEDS ORDERED: VIBRAMYCIN 100100 MG PO (08:09)
[2019-08-29 09:06] VITALS: BP 113/69
--- NOTE | 2019-08-29 10:04 | NUR ---
I have reviewed this patient and I concur with the Shift Assessment completed by the Licensed Practical Nurse today this shift.
[2019-08-29] MEDS ORDERED: BROVANA15 MCG/2 M INH (10:47)
[2019-08-29] MEDS ORDERED: DIFLUCAN100 MG PO (10:47)
[2019-08-29] MEDS ORDERED: MUCINEX DM ER1 EAC1 PO (10:48)
[2019-08-29] MEDS ORDERED: LISINOPRIL10 MG PO (10:48)
[2019-08-29 12:50] VITALS: BP 103/60
--- NOTE | 2019-08-29 13:48 | MORECARE ---
CASE MANAGEMENT DISCHARGE SUMMARY PATIENT: AHIM FITZGERALD UNIT: [id number] ADM DATE: 08/15/19 AGE: 69 : 51 SEX: F ROOM/BED: D.2228 AUTHOR: CLAY,DOC PHYSICIAN: REFERRING PHYSICIAN: EVA OMER MD DATE OF SERVICE: 08/29/19 Discharge Plan Patient Name: HAIM FITZGERALD Facility: [facility]:[place] : 1950 Planned Disposition: Intermediate Facility Anticipated Discharge Date: Discharge Date: Expected LOS: Initial Reviewer: [id number] Initial Review Date: 08/15/2019 Generated: 08/29/19 2:48 pm Comments DCP- Discharge Planning Updated by [email or web address]: Fallon Dunham on 08/29/19 12:[address] PATIENT TO DISCHARGE BACK TO [facility] TO A SKILLED BED. TODAY, I HAVE FAXED CLINCIAL OVER TO THEM DCP- Discharge Planning Updated by [id number]: Shiva Singer on 08/27/19 9:[address] Patient Name: HAIM FITZGERALD Encounter No: [id number] : 1950 Primary Insurance: [facility] MEDICARE SOLUTIONS Anticipated DC Date: Planned Disposition: Intermediate Facility External Planned Provider: [facility], MEDICARE REHAB B[facility] DCP follow-up note: FAXED UPDATE TO [facility] AT [phone]. PT HAS MANAGED MEDICARE AND WILL REQUIRE INSURANCE AUTHORIZATION AND WILL NEED PICC OR MID LINE IF IV MEDICATION ARE NEEDED FOR EXTENDED PERIOD OF TIME AT FACILITY. FOR DISCHARGE, FAX DISCHARGE INFORMATION TO [facility] AT [phone]. NURSE REPORT TO BE CALLED TO [facility] AT [phone]. Shiva Singer, CASE MANAGEMENT DCP- Discharge Planning Updated by [email or web address]: Shiva Singer on 08/24/19 4:[address] Patient Name: HAIM FITZGERALD Encounter No: [id number] : 1950 Primary Insurance: [facility] MEDICARE SOLUTIONS Anticipated DC Date: Planned Disposition: Intermediate Facility External Planned Provider: [facility], MEDICARE REHAB BED DCP follow-up note: CM REVIEWED CHART. PT HAS MANAGED MEDICARE AND WILL REQUIRE INSURANCE AUTHORIZATION. PT WILL ALSO NEED PICC OR MID LINE IF IV MEDICATION ARE NEEDED FOR EXTENDED PERIOD OF TIME AT FACILITY. CM FAXED UPDATE TO [facility] AT [phone]. PT HAS MANAGED MEDICARE AND WILL REQUIRE INSURANCE AUTHORIZATION AND WILL NEED PICC OR MID LINE IF IV MEDICATION ARE NEEDED FOR EXTENDED PERIOD OF TIME AT FACILITY. FOR DISCHARGE, FAX DISCHARGE INFORMATION TO [facility] AT [phone]. NURSE REPORT TO BE CALLED TO [facility] AT [phone]. Shiva Singer CASE MANAGEMENT DCP- Discharge Planning Updated by [email or web address]: Shiva Singer on 08/20/19 10:[address] Patient Name: HAIM FITZGERALD Encounter No: [id number] : 1950 Primary Insurance: [facility] MEDICARE SOLUTIONS Anticipated DC Date: Planned Disposition: Intermediate Facility External Planned Provider: [facility], MEDICARE REHAB BED DCP follow-up note: CM REVIEWED CHART. PT HAS MANAGED MEDICARE AND WILL REQUIRE NEW PHYSICAL AND OCCUPATIONAL THERAPY EVALUATIONS FOR INSURANCE AUTHORIZATION. CM FAXED UPDATE TO [facility] AT [phone]/ PT HAS MANAGED MEDICARE AND WILL REQUIRE NEW PHYSICAL AND OCCUPATIONAL THERAPY EVALUATIONS FOR INSURANCE AUTHORIZATION. FOR DISCHARGE, FAX DISCHARGE INFORMATION TO [facility] AT [phone]. NURSE REPORT TO BE CALLED TO [facility] AT [phone]. ENRIQUE Wilson MANAGEMENT DCP- Discharge Planning Updated by [email or web address]: Shaylee Bowden on 08/19/19 4:[address] Patient Name: HAIM FITZGERALD Admission Status: ER Accout number: [id number] Admission Date: 08-15-2019 : 1950 Admission Diagnosis: Attending: EVA OMER Current LOS: 4 Anticipated DC Date: Planned Disposition: Intermediate Facility Primary Insurance: [facility] MEDICARE SOLUTIONS Discharge Planning Comments: CM met with patient to complete initial dc planning assessment. CM educated patient on the CM role and verbal consent given by patient to complete assessment. CM verified patient's address, phone number, and emergency contact phone numbers. Patient is currently in rehab @ [facility]. At discharge patient plans to return to [facility] and feels this is a safe discharge. MONICA form signed by patient for return to [facility]. Patient denied further known discharge needs at this time. . Transportation provider at discharge will be [facility] . CM will continue to follow and will assist as needed with dc plans/needs. Fuse Coiler: Shaylee Bowden DCPIA - Discharge Planning Initial Assessment Updated by [email or web address]: Shaylee Bowden on 08/19/19 4:55 pm * Is the patient Alert and Oriented? Yes * PCP [facility] * Pharmacy [facility] * Preadmission Environment Intermediate Facility * Facility Name [facility] * ADLs Partial Dependent * Partial ADLs (Assistance needed) Ambulation Bathing Dressing Eating Medication Management Toileting Transfers * List name and contact numbers for known caregivers / representatives who currently or will assist patient after discharge: NALLELY REINA - [phone] * Verbal permission to speak to the caregivers and representatives has been obtained from the patient. N/A * Additional services required to return to the preadmission environment? No * Can the patient safely return to the preadmission environment? Yes * Has this patient been hospitalized within the prior 30 days at any hospital? Yes Coverage Notice Reviewer: [id number] - Shaylee Bowden Notice Issued Date-Time: 08/19/2019 15:15 Notice Type: Patient Choice Letter Notice Delivered To: Patient Relationship to Patient: Self Interstate Bus Driver Name: Delivery Method: HAND - Hand Delivered Chely Days: Prior Verbal Notification: Yes Recipient Understood Notice: Yes Recipient Signature: Med Rec Note Co-signed by Attending: Coverage Notice Comment: Reviewer: [id number] - Fallon Dunham Notice Issued Date-Time: 08/29/2019 13:45 Notice Type: IM Discharge Notice Notice Delivered To: Patient Relationship to Patient: Interstate Bus Driver Name: Delivery Method: HAND - Hand Delivered Chely Days: Prior Verbal Notification: Recipient Understood Notice: Yes Recipient Signature: Yes Med Rec Note Co-signed by Attending: Coverage Notice Comment: Last DP export: 08/27/19 9:51 a Patient Name: HAIM FITZGERALD Page 68414 at 1348 All edits/amendments must be made on the electronic document DICTATION DATE: 08/29/19 1348 GRADUATE TEACHER EDUCATION: KAYY 08/29/19 1348 RPT#: [id number] DC DATE: STATUS: ADM IN [facility] [address] [place] [address] END OF REPORT
--- NOTE | 2019-08-29 13:56 | MORECARE ---
CASE MANAGEMENT DISCHARGE SUMMARY PATIENT: HAIM FITZGERALD UNIT: [id number] ADM DATE: 08/15/19 AGE: 69 : 51 SEX: F ROOM/BED: D.2228 AUTHOR: CLAY,DOC PHYSICIAN: REFERRING PHYSICIAN: EVA OMER MD DATE OF SERVICE: 08/29/19 Discharge Plan Patient Name: HAIM FITZGERALD Facility: [facility]:[place] : 1950 Planned Disposition: Group Home Facility Anticipated Discharge Date: Discharge Date: Expected LOS: Initial Reviewer: [id number] Initial Review Date: 08/15/2019 Generated: 08/29/19 2:56 pm Comments DCP- Discharge Planning Updated by [email or web address]: Fallon Dunham on 08/29/19 12:[address] SPOKE WITH YFN AT [facility] THEY WILL PICK HER UP AROUND 4:00 PM DCP- Discharge Planning Updated by [id number]: Fallon Dunham on 08/29/19 12:[address] IMM SERVED AND EXPLAINED PATIENT IS EXCIDED TO GO BACK. THEY WILL CALL ME BACK WITH BOX CHIPPER TIME. SHE DID NOT HAVE ANY FAMILY THAT SHE WANTED ME TO CALL CM WILL CONTINUE TO FOLLOW AND ASSIST NEEDED DCP- Discharge Planning Updated by [id number]: Fallon Dunham on 08/29/19 12:[address] PATIENT TO DISCHARGE BACK TO [facility] TO A SKILLED BED. TODAY, I HAVE FAXED CLINCIAL OVER TO THEM DCP- Discharge Planning Updated by [id number]: Shiva Singer on 08/27/19 9:[address] Patient Name: HAIM FITZGERALD Encounter No: [id number] : 1950 Primary Insurance: [facility] MEDICARE SOLUTIONS Anticipated DC Date: Planned Disposition: Group Home Facility External Planned Provider: [facility], MEDICARE REHAB BED DCP follow-up note: FAXED UPDATE TO [facility] AT [phone]. PT HAS MANAGED MEDICARE AND WILL REQUIRE INSURANCE AUTHORIZATION AND WILL NEED PICC OR MID LINE IF IV MEDICATION ARE NEEDED FOR EXTENDED PERIOD OF TIME AT FACILITY. FOR DISCHARGE, FAX DISCHARGE INFORMATION TO [facility] AT [phone]. NURSE REPORT TO BE CALLED TO [facility] AT [phone]. Shiva Singer CASE MANAGEMENT DCP- Discharge Planning Updated by [id number]: Shiva Singer on 08/24/19 4:[address] Patient Name: HAIM FITZGERALD Encounter No: [id number] : 1950 Primary Insurance: [facility] MEDICARE SOLUTIONS Anticipated DC Date: Planned Disposition: Group Home Facility External Planned Provider: [facility], MEDICARE REHAB BED DCP follow-up note: CM REVIEWED CHART. PT HAS MANAGED MEDICARE AND WILL REQUIRE INSURANCE AUTHORIZATION. PT WILL ALSO NEED PICC OR MID LINE IF IV MEDICATION ARE NEEDED FOR EXTENDED PERIOD OF TIME AT FACILITY. CM FAXED UPDATE TO [facility] AT [phone]. PT HAS MANAGED MEDICARE AND WILL REQUIRE INSURANCE AUTHORIZATION AND WILL NEED PICC OR MID LINE IF IV MEDICATION ARE NEEDED FOR EXTENDED PERIOD OF TIME AT FACILITY. FOR DISCHARGE, FAX DISCHARGE INFORMATION TO [facility] AT [phone]. NURSE REPORT TO BE CALLED TO [facility] AT [phone]. Shiva Singer CASE MANAGEMENT DCP- Discharge Planning Updated by [id number]: Shiva Singer on 08/20/19 10:[address] Patient Name: HAIM FITZGERALD Encounter No: [id number] : 1950 Primary Insurance: [facility] MEDICARE SOLUTIONS Anticipated DC Date: Planned Disposition: Group Home Facility External Planned Provider: [facility], MEDICARE REHAB BED DCP follow-up note: CM REVIEWED CHART. PT HAS MANAGED MEDICARE AND WILL REQUIRE NEW PHYSICAL AND OCCUPATIONAL THERAPY EVALUATIONS FOR INSURANCE AUTHORIZATION. CM FAXED UPDATE TO [facility] AT [phone]/ PT HAS MANAGED MEDICARE AND WILL REQUIRE NEW PHYSICAL AND OCCUPATIONAL THERAPY EVALUATIONS FOR INSURANCE AUTHORIZATION. FOR DISCHARGE, FAX DISCHARGE INFORMATION TO [facility] AT [phone]. NURSE REPORT TO BE CALLED TO [facility] AT [phone]. Shiva Singer CASE MANAGEMENT DCP- Discharge Planning Updated by [id number]: Shaylee Bowden on 08/19/19 4:[address] Patient Name: HAIM FITZGERALD Admission Status: ER Accout number: [id number] Admission Date: 08-15-2019 : 1950 Admission Diagnosis: Attending: EVA OMER Current LOS: 4 Anticipated DC Date: Planned Disposition: Group Home Facility Primary Insurance: [facility] MEDICARE SOLUTIONS Discharge Planning Comments: CM met with patient to complete initial dc planning assessment. CM educated patient on the CM role and verbal consent given by patient to complete assessment. CM verified patient's address, phone number, and emergency contact phone numbers. Patient is currently in rehab @ [facility]. At discharge patient plans to return to [facility] and feels this is a safe discharge. MONICA form signed by patient for return to [facility]. Patient denied further known discharge needs at this time. . Transportation provider at discharge will be [facility] . CM will continue to follow and will assist as needed with dc plans/needs. Molded Goods Controls Operator: Shaylee Bowden DCPIA - Discharge Planning Initial Assessment Updated by [id number]: Shaylee Bowden on 08/19/19 4:55 pm * Is the patient Alert and Oriented? Yes * PCP [facility] * Pharmacy [facility] * Preadmission Environment Group Home Facility * Facility Name [facility] * ADLs Partial Dependent * Partial ADLs (Assistance needed) Ambulation Bathing Dressing Eating Medication Management Toileting Transfers * List name and contact numbers for known caregivers / representatives who currently or will assist patient after discharge: NALLELY REINA - [phone] * Verbal permission to speak to the caregivers and representatives has been obtained from the patient. N/A * Additional services required to return to the preadmission environment? No * Can the patient safely return to the preadmission environment? Yes * Has this patient been hospitalized within the prior 30 days at any hospital? Yes Coverage Notice Reviewer: [id number] - Shaylee Bowden Notice Issued Date-Time: 08/19/2019 15:15 Notice Type: Patient Choice Letter Notice Delivered To: Patient Relationship to Patient: Self Machinist Mechanic Name: Delivery Method: HAND - Hand Delivered Chely Days: Prior Verbal Notification: Yes Recipient Understood Notice: Yes Recipient Signature: Med Rec Note Co-signed by Attending: Coverage Notice Comment: Reviewer: [id number] - Fallon Dunham Notice Issued Date-Time: 08/29/2019 13:45 Notice Type: IM Discharge Notice Notice Delivered To: Patient Relationship to Patient: Machinist Mechanic Name: Delivery Method: HAND - Hand Delivered Chely Days: Prior Verbal Notification: Recipient Understood Notice: Yes Recipient Signature: Yes Med Rec Note Co-signed by Attending: Coverage Notice Comment: Last DP export: 08/29/19 12:48 p Patient Name: HAIM FITZGERALD Page 70901 at 1356 All edits/amendments must be made on the electronic document DICTATION DATE: 08/29/19 1356 PERCUSSION INSTRUCTOR: KAYY 08/29/19 1356 RPT#: [id number] DC DATE: STATUS: ADM IN [facility] [address] [place] [address] END OF REPORT
--- NOTE | 2019-08-29 14:21 | NUR ---
OT NOTE: PT COMPLETED SUPINE TO SIT WITH SBA. PT COMPLETED SIT TO STAND WITH CGA. PT COMPLETED BED TO BSC TRANSFER WITH CGA. PT COMPLETED HYGIENE WITH SBA. PT REQUIRED EXTRA TIME TO COMPLETE TASKS. [phone] THANK YOU,ELIF JONES
--- NOTE | 2019-08-29 16:00 | NUR ---
REVIEWED DC ORDERS WITH PT, IV REMOVED, TIP INTACT, REPORT CALLED TO [facility], CHANGED TO PORTABLE WOUND VAC, RX FOR ABT AND PAIN MED IN PACKET
--- NOTE | 2019-08-30 08:09 | MORECARE ---
CASE MANAGEMENT DISCHARGE SUMMARY PATIENT: HAIM FITZGERALD UNIT: [id number] ADM DATE: 08/15/19 AGE: 69 : 51 SEX: F ROOM/BED: D.2228 AUTHOR: CLAY,DOC PHYSICIAN: REFERRING PHYSICIAN: EVA OMER MD DATE OF SERVICE: 08/30/19 Discharge Plan Patient Name: HAIM FITZGERALD Facility: [facility]:[place] : 1950 Planned Disposition: Usp Facility Anticipated Discharge Date: Discharge Date: 08/29/2019 Expected LOS: Initial Reviewer: [id number] Initial Review Date: 08/15/2019 Generated: 08/30/19 9:09 am Comments DCP- Discharge Planning Updated by [email or web address]: Fallon Dunham on 08/29/19 12:[address] SPOKE WITH YFN AT [facility] THEY WILL PICK HER UP AROUND 4:00 PM DCP- Discharge Planning Updated by [email or web address]: Fallon Dunham on 08/29/19 12:[address] IMM SERVED AND EXPLAINED PATIENT IS EXCIDED TO GO BACK. THEY WILL CALL ME BACK WITH MOUNTAIN OR GLACIER GUIDE TIME. SHE DID NOT HAVE ANY FAMILY THAT SHE WANTED ME TO CALL CM WILL CONTINUE TO FOLLOW AND ASSIST NEEDED DCP- Discharge Planning Updated by [id number]: Fallon Dunham on 08/29/19 12:[address] PATIENT TO DISCHARGE BACK TO [facility] TO A SKILLED BED. TODAY, I HAVE FAXED CLINCIAL OVER TO THEM DCP- Discharge Planning Updated by [id number]: Shiva Singer on 08/27/19 9:[address] Patient Name: HAIM FITZGERALD Encounter No: [id number] : 1950 Primary Insurance: [facility] MEDICARE SOLUTIONS Anticipated DC Date: Planned Disposition: Usp Facility External Planned Provider: [facility] DCP follow-up note: FAXED UPDATE TO [facility] AT [phone]. PT HAS MANAGED MEDICARE AND WILL REQUIRE INSURANCE AUTHORIZATION AND WILL NEED PICC OR MID LINE IF IV MEDICATION ARE NEEDED FOR EXTENDED PERIOD OF TIME AT FACILITY. FOR DISCHARGE, FAX DISCHARGE INFORMATION TO [facility] AT [phone]. NURSE REPORT TO BE CALLED TO [facility] AT [phone]. Shiva Singer CASE MANAGEMENT DCP- Discharge Planning Updated by [email or web address]: Shiva Singer on 08/24/19 4:[address] Patient Name: HAIM FITZGERALD Encounter No: [id number] : 1950 Primary Insurance: [facility] MEDICARE SOLUTIONS Anticipated DC Date: Planned Disposition: Usp Facility External Planned Provider: [facility], MEDICARE REHAB BED DCP follow-up note: CM REVIEWED CHART. PT HAS MANAGED MEDICARE AND WILL REQUIRE INSURANCE AUTHORIZATION. PT WILL ALSO NEED PICC OR MID LINE IF IV MEDICATION ARE NEEDED FOR EXTENDED PERIOD OF TIME AT FACILITY. CM FAXED UPDATE TO [facility] AT [phone]. PT HAS MANAGED MEDICARE AND WILL REQUIRE INSURANCE AUTHORIZATION AND WILL NEED PICC OR MID LINE IF IV MEDICATION ARE NEEDED FOR EXTENDED PERIOD OF TIME AT FACILITY. FOR DISCHARGE, FAX DISCHARGE INFORMATION TO [facility] AT [phone]. NURSE REPORT TO BE CALLED TO [facility] AT [phone]. Shiva Singer CASE MANAGEMENT DCP- Discharge Planning Updated by [id number]: Shiva Singer on 08/20/19 10:[address] Patient Name: HAIM FITZGERALD Encounter No: [id number] : 1950 Primary Insurance: [facility] MEDICARE SOLUTIONS Anticipated DC Date: Planned Disposition: Usp Facility External Planned Provider: [facility] MEDICARE REHAB BED DCP follow-up note: CM REVIEWED CHART. PT HAS MANAGED MEDICARE AND WILL REQUIRE NEW PHYSICAL AND OCCUPATIONAL THERAPY EVALUATIONS FOR INSURANCE AUTHORIZATION. CM FAXED UPDATE TO [facility] AT [phone]/ PT HAS MANAGED MEDICARE AND WILL REQUIRE NEW PHYSICAL AND OCCUPATIONAL THERAPY EVALUATIONS FOR INSURANCE AUTHORIZATION. FOR DISCHARGE, FAX DISCHARGE INFORMATION TO [facility] AT [phone]. NURSE REPORT TO BE CALLED TO [facility] AT [phone]. Shiva Singer CASE MANAGEMENT DCP- Discharge Planning Updated by [id number]: Shaylee Bowden on 08/19/19 4:[address] Patient Name: HAIM FITZGERALD Admission Status: ER Accout number: [id number] Admission Date: 08-15-2019 : 1950 Admission Diagnosis: Attending: EVA OMER Current LOS: 4 Anticipated DC Date: Planned Disposition: Usp Facility Primary Insurance: [facility] MEDICARE SOLUTIONS Discharge Planning Comments: CM met with patient to complete initial dc planning assessment. CM educated patient on the CM role and verbal consent given by patient to complete assessment. CM verified patient's address, phone number, and emergency contact phone numbers. Patient is currently in rehab @ [facility]. At discharge patient plans to return to [facility] and feels this is a safe discharge. MONICA form signed by patient for return to [facility]. Patient denied further known discharge needs at this time. . Transportation provider at discharge will be [facility] . CM will continue to follow and will assist as needed with dc plans/needs. Energy Economist: Shaylee Bowden DCPIA - Discharge Planning Initial Assessment Updated by [email or web address]: Shaylee Bowden on 08/19/19 4:55 pm * Is the patient Alert and Oriented? Yes * PCP [facility] * Pharmacy [facility] * Preadmission Environment Usp Facility * Facility Name [facility] * ADLs Partial Dependent * Partial ADLs (Assistance needed) Ambulation Bathing Dressing Eating Medication Management Toileting Transfers * List name and contact numbers for known caregivers / representatives who currently or will assist patient after discharge: NALLELY NUNO - [phone] * Verbal permission to speak to the caregivers and representatives has been obtained from the patient. N/A * Additional services required to return to the preadmission environment? No * Can the patient safely return to the preadmission environment? Yes * Has this patient been hospitalized within the prior 30 days at any hospital? Yes Coverage Notice Reviewer: [id number] - Shaylee Bowden Notice Issued Date-Time: 08/19/2019 15:15 Notice Type: Patient Choice Letter Notice Delivered To: Patient Relationship to Patient: Self Academic Department Chair Name: Delivery Method: HAND - Hand Delivered Chely Days: Prior Verbal Notification: Yes Recipient Understood Notice: Yes Recipient Signature: Med Rec Note Co-signed by Attending: Coverage Notice Comment: Reviewer: [id number] Vincenzo Dunham Notice Issued Date-Time: 08/29/2019 13:45 Notice Type: IM Discharge Notice Notice Delivered To: Patient Relationship to Patient: Academic Department Chair Name: Delivery Method: HAND - Hand Delivered Chely Days: Prior Verbal Notification: Recipient Understood Notice: Yes Recipient Signature: Yes Med Rec Note Co-signed by Attending: Coverage Notice Comment: Last DP export: 08/29/19 12:56 p Patient Name: HAIM FITZGERALD Page 95707 at 0809 All edits/amendments must be made on the electronic document DICTATION DATE: 08/30/19808 REVIEW ENGINEER: KAYY 08/30/19808 RPT#: [id number] DC DATE:08/29/19 STATUS: DIS IN [facility] [address] [place] [address] END OF REPORT
== END 2019-08-29 16:15 | DRG 574 ==
LOC: D.ER 23:21 → D.M2 08-15 00:14 → D.MS 08-15 00:14
PROVIDERS: Family Medicine; Orthopaedic Surgery; ADMIT Family Medicine; ATTEND Family Medicine
PROC: 0JCN0ZZ Extirpation of Matter from Right Lower Leg Subcutaneous Tissue and Fascia, Open Approach (ICD-10-PCS; 2019-08-15)
PROC: 3E1038Z Irrigation of Skin and Mucous Membranes using Irrigating Substance, Percutaneous Approach (ICD-10-PCS; 2019-08-17)
PROC: 3E1038Z Irrigation of Skin and Mucous Membranes using Irrigating Substance, Percutaneous Approach (ICD-10-PCS; 2019-08-22)
PROC: 0H9KXZZ Drainage of Right Lower Leg Skin, External Approach (ICD-10-PCS; 2019-08-28)
PROC: 0HRKXK3 Replacement of Right Lower Leg Skin with Nonautologous Tissue Substitute, Full Thickness, External Approach (ICD-10-PCS; principal; 2019-08-28 12:15)
DX: L03.115 Cellulitis of right lower limb (principal); I82.501 Chronic embolism and thrombosis of unspecified deep veins of right lower extremity; I48.20 Chronic atrial fibrillation, unspecified; S42.211D Unspecified displaced fracture of surgical neck of right humerus, subsequent encounter for fracture with routine healing; G89.21 Chronic pain due to trauma; J43.9 Emphysema, unspecified; M15.0 Primary generalized (osteo)arthritis; S80.11XD Contusion of right lower leg, subsequent encounter; F32.9 Major depressive disorder, single episode, unspecified; E03.8 Other specified hypothyroidism; E06.3 Autoimmune thyroiditis; K21.9 Gastro-esophageal reflux disease without esophagitis; G20 Parkinson's disease; I95.89 Other hypotension; D64.9 Anemia, unspecified; Z72.0 Tobacco use

== ENCOUNTER 2019-10-05 09:43 | Day surgery (SDC) | payer MEDICARE, MEDICAID ==
[~2019-10-05] VITALS: Ht 165.1 cm; Wt 68.0 kg
[~2019-10-05 09:43] MED LIST changes: +BROVANA15 MCG/2 M INH; +DIFLUCAN100 MG PO; +KEFLEX500 MG PO; +LISINOPRIL10 MG PO; +MUCINEX DM ER1 EAC1 PO; +PERCOCET 10-321 EAC1 PO; +VIBRAMYCIN 100100 MG PO
[2019-10-05 09:52] LABS: HEMATOCRIT 33.8 % (36.0-48.0); HEMOGLOBIN 10.6 g/dL (12-16); MCH 28.5 pg (26.0-34.0); MCHC 31.4 g/dL (31.0-37.0); MCV 90.9 fL (80.0-100.0); RBC 3.72 10x6/uL (4.00-5.40); RDW 13.9 % (11.5-14.5); WBC 5.7 10x3/uL (4.8-10.8)
[2019-10-05 10:01] LABS: CALC OSMOLALITY 277 mosm/kg (275-300); CALCIUM 7.9 mg/dL (8.5-10.1); CARBON DIOXIDE 24.7 mmol/L (21.0-32.0); CHLORIDE - SERUM 106 mmol/L (98-107); CREATININE - SERUM 0.8 mg/dL (0.6-1.3); GLUCOSE 91 mg/dL (74-106); POTASSIUM - SERUM 4.4 mmol/L (3.5-5.1); SODIUM 139 mmol/L (136-145); UREA NITROGEN 12 mg/dL (7-18); eGFR NON AFRICAN AMERICAN 75 mL/min (90-120)
[2019-10-05 10:39] VITALS: BP 129/83; Ht 165.1 cm; Wt 68.0 kg
--- NOTE | 2019-10-05 11:08 | NUR ---
POSITIVE FOR [facility]ILITY ON POINT OF FIRST CONTACT, ZOEY CALVO RN NOTIFIED AND CLEARED
[2019-10-05] MEDS ORDERED: PERCOCET 10-321 EAC1 PO (14:25)
--- NOTE | 2019-10-05 15:57 | NUR ---
DC INSTRUCTIONS GIVEN TO PT. STATES UNDERSTANDING. DC'D IV CATH FULLY INTACT.
--- NOTE | 2019-10-05 16:19 | NUR ---
PT LEFT UNIT VIA WC AT 1613
--- NOTE | 2019-10-08 08:12 | OP ---
PATIENT NAME: HAIM FITZGERALD MEDICAL RECORD: [id number] :52 LOCATION:DOM ADMISSION DATE: SURGEON: ANGUS ZAIDI DO DATE OF OPERATION: 10/05/2019 PROCEDURE PERFORMED: Right lower extremity irrigation, debridement with Kerecis application and wound VAC application. PREOPERATIVE DIAGNOSIS: Right lower extremity open wound. POSTOPERATIVE DIAGNOSIS: Right lower extremity open wound. INDICATIONS: Ms. Fitzgerald is a 69-year-old female who had a fall several months ago, had a large hematoma on the lower extremity. It ended up necrosing the skin. I debrided it and had a 10 x 12 cm open wound. I did several debridements and cultures. Once cultures were negative, put the Kerecis on, applied it, and it had been on for approximately a month, had been granulating very, very well and I got to the point where we need to put another application of it on as to keep the growth going to cover the open wound. It had shrunk down to 8 x 9 cm and was shrinking daily. I informed her that we would do this one more time and that it should do the trick, but it would take some time for skin to regenerate over it. She is okay with that and is aware of the risk of infection, bleeding, need for further surgery, damage to nerves and vessels and continued pain. She is okay with all that and signed the consent. SURGEON: Angus Zaidi DO DESCRIPTION OF PROCEDURE: The patient was taken to the operative suite, laid in supine position, given general anesthetic. The LMA was then placed. She was given 2 grams of Ancef. Right lower extremity was then prepped and draped in sterile fashion. Time out was performed. Everyone was in agreement with the correct side, site, patient, and procedure. I then began with saline and a scrub brush scrubbing over the prior graft which was very granulated and to get bleeding reaction that happened and then I debrided the outer edge of the skin to get bleeding on the outer edge of the skin. This was done with 15 blade and pickup. Once that was achieved, the 10 x 12 Kerecis graft was placed over it and cut down to size to fit over the wound and sutured in place with 3-0 Monocryl. Then once that was sutured in place, the Prevena Restore VAC was placed on it after cleaning it and surrounding the wound edges with Cavilon and sucked that down with a regular suction and then turned the VAC on for it, held suction very well. She was then wrapped with an Perfecto wrap, awakened and taken to recovery in stable condition. BLOOD LOSS: Minimal. COMPLICATIONS: None. TRANSINT:[id number] Voice Confirmation ID: [id number] DOCUMENT ID: [id number] OPERATIVE REPORT [id number] HAIM FITZGERALD MICHAEL D, DO at 0812 CC: [id number] DICTATION DATE: 10/05/19 1413 DRIVER'S EDUCATION INSTRUCTOR: 10/05/19 2259 [facility] 10/05/19 [id number] [place] [address]
== END 2019-10-05 16:13 | disposition home or self-care (01) ==
LOC: D.PAN 09:43 → D.OPS 12:10 → D.PAN 12:10 → D.OPS 14:15 → D.PAN 16:13
PROVIDERS: Anesthesiology; ATTEND Orthopaedic Surgery
DX: S81.801A Unspecified open wound, right lower leg, initial encounter (principal); I27.0 Primary pulmonary hypertension; F17.200 Nicotine dependence, unspecified, uncomplicated; J44.9 Chronic obstructive pulmonary disease, unspecified; E03.9 Hypothyroidism, unspecified

== ENCOUNTER 2019-11-16 10:00 | Observation (INO) | payer MEDICARE, MEDICAID ==
[~2019-11-16] VITALS: Ht 165.1 cm; Wt 64.0 kg
[~2019-11-16 10:00] MED LIST changes: +BACTRIM 400-801 TAB PO; +EFFEXOR XR150 MG PO; +LISINOPRIL20 MG PO; +MOBIC7.5 MG PO
[2019-11-16 10:29] LABS: HEMATOCRIT 34.9 % (36.0-48.0); MCH 27.9 pg (26.0-34.0); MCHC 31.5 g/dL (31.0-37.0); MCV 88.6 fL (80.0-100.0); MEAN PLATELET VOLUME 10.3 fL (7.4-10.4); RBC 3.94 10x6/uL (4.00-5.40); RDW 15.1 % (11.5-14.5); WBC 7.8 10x3/uL (4.8-10.8)
[2019-11-16] MEDS ORDERED: HYDROCODON-ACE1 EA10 PO (11:56)
[2019-11-16 12:30] VITALS: BP 121/76; BMI 23.5
--- NOTE | 2019-11-16 17:23 | NUR ---
REPORT GIVEN TO LAXMI ARRIAGA MED SURE. TRANSPORT TO ROOM 2225.VSS
[2019-11-16 17:56] VITALS: BP 155/86; BMI 23.5
--- NOTE | 2019-11-16 18:00 | NUR ---
PT ARRIVES TO FLOOR VIA WHEELCHAIR ESCORTED BY HOSPITAL STAFF. PT IS AAO X 4. O2 VIA NC @ 2L. RESPIRATIONS ARE EVEN AND UNLABORED. WOUND VAC NOTED TO RLE AND DRESSING INTACT AND WITHOUT COMPROMISE. BLE EDEMA NOTED. PEDAL PULSES ARE PALP AND CAP REFILL TO BLE IS < 3 SECONDS. PT DENIES PRESENCE OF N/V/DIZZINESS/DYSONEA AT THIS TIME. PT IS SOFT SPOKEN BUT ANSWERS ALL QUESTIONS APPROPRIATELY. ALL FALL PRECAUTIONS IN PLACE. INCENTIVE SPIROMETER AT BEDSIDE. EDUCATION GIVEN. BED IS IN THE LOWEST POSITION. CALL LIGHT AND BEDSIDE TABLE ARE WITHIN REACH. SIDE RAILS X 2. STERLING ALARM IS ON AND WORKING. WILL CONT TO MONITOR.
[2019-11-16 20:00] VITALS: BP 108/66
[2019-11-17 06:54] LABS: HEMATOCRIT 33.1 % (36.0-48.0); HEMOGLOBIN 10.3 g/dL (12-16)
[2019-11-17 07:50] VITALS: Ht 165.1 cm; Wt 64.0 kg
--- NOTE | 2019-11-17 07:55 | NUR ---
RESTING COMFORTABLY IN BED, CURRENTLY RCVING 2L VIA NC. IV LOCATED TO RIGHT HAND RUNNING 1/2NS @ 50. NO S/S OF DISTRESS AT THIS TIME, DENIES CURRENT NEEDS, WILL CONT TO MONITOR.
[2019-11-17 08:00] VITALS: BP 116/74
[2019-11-17 12:00] VITALS: BP 100/65
[2019-11-17 17:25] VITALS: BP 117/69
[2019-11-17 20:00] VITALS: BP 117/75
[2019-11-18] VITALS: BP 122/73
[2019-11-18 04:00] VITALS: BP 97/69
[2019-11-18 06:54] LABS: HEMATOCRIT 30.7 % (36.0-48.0); HEMOGLOBIN 9.4 g/dL (12-16)
[2019-11-18 07:58] VITALS: BP 94/59
--- NOTE | 2019-11-18 08:10 | OP ---
PATIENT NAME: HAIM FITZGERALD MEDICAL RECORD: [id number] :52 LOCATION:D.[facility] [place].2225 ADMISSION DATE:11/16/19 SURGEON: CARLOS ZAIDI DO DATE OF OPERATION: 11/16/2019 PROCEDURE PERFORMED: Right lower extremity split thickness skin graft and Kerecis application. PREOPERATIVE DIAGNOSIS: Right lower extremity open wound. POSTOPERATIVE DIAGNOSIS: Right lower extremity open wound. INDICATIONS: Ms. Fitzgerald is a 69-year-old female well known to me. I had been dealing with this lower extremity wound for months. I had done two Kerecis application in the wound. After initially debriding and having a wound VAC on it, I then had filled the wound nicely. It is approximately 7 x 10 cm in size and we had gotten to a point where there was hypergranular tissue over the Kerecis graft and felt that a split thickness skin graft would adequately cover it and finish the healing. We also applied wound VAC for approximately a week. I then informed her also the risks of infection, bleeding, and graft site pain. She is aware of that continued pain and nonhealing of the wound, rejection of the graft or failure of the skin graft. She is aware of all that and signed the consent. SURGEON: Carlos Zaidi DO DESCRIPTION OF PROCEDURE: The patient was taken to the operative suite, laid in supine position, given general anesthetic and LMA was placed. She was given a gram of Ancef. The right lower extremity was then prepped with Betadine and draped. A timeout was performed; everyone was in agreement with the correct side, site, patient and procedure. I then began by tracing over the open wound on a sterile client sales and service officer and then cut it out and put it over the donor graft site on the upper thigh. The dermatome was then prepared to use a 0.016 thickness graft of the skin. I then injected the donor site with 20 mL of 1% lidocaine with epinephrine and then used the dermatome and took 2 grafts. Two inch blade was used and we took 2 grafts from the site 2 x 10 cm. The site and then was covered with Telfa soaked in epinephrine and then we addressed the open wound. I curetted off the granular tissue and make it bleed and then prepared the site with a curette and made the actual open wound bleed and then applied the skin graft. I tied it down with 4-0 chromic in a simple fashion using quilting stitches at the corners and throughout the graft and the center of the graft. I then ran a 4-0 chromic in a running stitch all around the periphery and we had some small corners of the excess skin and this was removed. I then placed Kerecis 7 x 10 graft after it had been meshed. The split thickness skin graft incidentally had been meshed as well prior to placement. The Kerecis graft was then meshed and placed over the donor site and sutured in place with 4-0 Monocryl and then dressed with Adaptic, Telfa, and Tegaderm. Adaptic was put on the Kerecis graft also and then Telfa and Tegaderm. Adaptic was then placed over the open wound site and wound VAC was placed over the Restor VAC and then secured with the covering. The patient was then awakened and taken to recovery in stable condition. BLOOD LOSS: Minimal. COMPLICATIONS: None. OPERATIVE REPORT [id number] HAIM FITZGERALD TRANSINT:[id number] Voice Confirmation ID: [id number] DOCUMENT ID: [id number] CARLOS ZAIDI DO at 0810 CC: [id number] DICTATION DATE: 11/16/19 1621 CLINICAL DOCUMENTATION IMPROVEMENT SPECIALIST: 11/17/19 0148 ADM IN [facility] [address] [place] [address]
--- NOTE | 2019-11-18 11:00 | NUR ---
SHE IS SLEEPY THIS MORNING. THE BED ALARM IS ON. I CAN NOT GET ANY OF HER CONTTACT PEOPLE TO ANSWER THE PHONE. SHE HAS A DISCHARGE ORDER AND HER PAPERWORK IS DONE. THE DRESSING TO THE UPPER RIGHT THIGH IS LEAKING, I APPLIED 2 MORE CLEAR DRESSINGS. THE WOUND VAC IS IN PLACE TO THE LOWER LEG. WILL KEEP TRYING TO GET SOMEONE TO PICK HER UP.
--- NOTE | 2019-11-18 12:03 | NUR ---
CALL TO NALLELY REINA [phone]. MESSAGE LEFT PATIENT IS DC TO HOME
[2019-11-18 12:12] VITALS: BP 110/67
--- NOTE | 2019-11-18 12:54 | MORECARE ---
CASE MANAGEMENT DISCHARGE SUMMARY PATIENT: CHLOE FITZGERALD UNIT: [id number] ADM DATE: 11/16/19 AGE: 69 : 51 SEX: F ROOM/BED: D.2225 AUTHOR: KAREN WILLIAMSON PHYSICIAN: REFERRING PHYSICIAN: CARLOS ZAIDI DO DATE OF SERVICE: 11/18/19 Discharge Plan Patient Name: CHLOE FITZGERALD Facility: [facility]:[place] : 1950 Planned Disposition: Home Health Service Anticipated Discharge Date: 11/18/19 Discharge Date: Expected LOS: 2 Initial Reviewer: [email or web address] Initial Review Date: 11/16/2019 Generated: 11/18/19 1:54 pm Comments DCP- Discharge Planning Updated by [email or web address]: Johnna David on 11/18/19 8:[address] CM met with patient regarding DC needs/plans. Patient has a Prevena wound vac Right leg. Patient agrees to CM interview. PCP: Dr. Eli. Pharmacy: [facility]. Emergency contact: Sanaz Brown [phone]. DME: Walker, BSC, Shower chair. Patient lives in an apartment, 0 steps. Patient states that Elder Care is in the home 5 days/week, 4 hours/day. CM left a for Sanaz Brown, with call back number. Notified patient's nurse that her Prevena dressing is leaking. Coverage Notice Reviewer: [id number] Vincenzo David Notice Issued Date-Time: 11/18/2019 12:45 Notice Type: Medicare Outpatient Observation Notice Notice Delivered To: Patient Relationship to Patient: Self Attorney At Law Name: Chloe Fitzgerald Delivery Method: HAND - Hand Delivered Chely Days: Prior Verbal Notification: Recipient Understood Notice: Yes Recipient Signature: Yes Med Rec Note Co-signed by Attending: Coverage Notice Comment: Merino signed by and given to patient. Copy to chart. Reviewer: [id number] Vincenzo David Notice Issued Date-Time: 11/18/2019 12:45 Notice Type: Patient Choice Letter Notice Delivered To: Patient Relationship to Patient: Self Attorney At Law Name: Chloe Fitzgerald Delivery Method: HAND - Hand Delivered Chely Days: Prior Verbal Notification: Recipient Understood Notice: Yes Recipient Signature: Yes Med Rec Note Co-signed by Attending: Coverage Notice Comment: Patient choice for [facility]. Patient Name: CHLOE FITZGERALD Page [phone] at 1254 All edits/amendments must be made on the electronic document DICTATION DATE: 11/18/19 1254 DIRECTOR OF CORPORATE SPONSORSHIPS: KAYY 11/18/19 1254 RPT#: [id number] DC DATE: STATUS: ADM IN [facility] [address] [place] [address] END OF REPORT
--- NOTE | 2019-11-18 14:29 | NUR ---
SHE DID NOT WANT TO LEAVE TODAY. SHE KEPT SAYING SHE WAS EATING, LOST HER PURSE, DID NOT HAVE A RIDE, COULD NOT FIND HER KEYS. IV REMOVED, TAKEN TO THE FRONT DOOR VIA WHEELCHAIR. A TAXI IS TAKING HER HOME. SHE HAS A WOUND VAC TO THE RIGHT LOWER LEG.
--- NOTE | 2019-11-18 17:42 | MORECARE ---
CASE MANAGEMENT DISCHARGE SUMMARY PATIENT: HCLOE FITZGERALD UNIT: [id number] ADM DATE: 11/16/19 AGE: 69 : 51 SEX: F ROOM/BED: D.2225 AUTHOR: CLAY,DOC PHYSICIAN: REFERRING PHYSICIAN: CARLOS ZAIDI DO DATE OF SERVICE: 11/18/19 Discharge Plan Patient Name: CHLOE FITZGERALD Facility: [facility]:[place] : 1950 Planned Disposition: Home Health Service Anticipated Discharge Date: 11/18/19 Discharge Date: 11/18/2019 Expected LOS: 2 Initial Reviewer: [id number] Initial Review Date: 11/16/2019 Generated: 11/18/19 6:42 pm DCP- Discharge Planning Updated by [email or web address]: Johnna David on 11/18/19 4:[address] CM met multiple times today in regards to DC planning. Patient would not provide a telephone number for her transportation, nor a name for her [facility] or a choice. Patient is not very cooperative. CM attempted to contact Sanaz Brown (emergency contact) multiple times, as well as nursing staff, but a return call was never received. Multiple messages left for Sanaz. CM spoke with patient regarding HHS, Rehab, SNF, but after the third visit, she admitted that she has [facility]. CM contacted [facility], spoke with O/C nurse to advise of patient's discharge. DCP- Discharge Planning Updated by [id number]: Johnna David on 11/18/19 8:[address] CM met with patient regarding DC needs/plans. Patient has a Prevena wound vac Right leg. Patient agrees to CM interview. PCP: Dr. Eli. Pharmacy: [facility]. Emergency contact: Sanaz Brown [phone]. DME: Walker, BSC, Shower chair. Patient lives in an apartment, 0 steps. Patient states that Elder Care is in the home 5 days/week, 4 hours/day. CM left a VM for Sanaz Brown, with CM call back number. Notified patient's nurse that her Prevena dressing is leaking. Coverage Notice Reviewer: [id number] - Johnna David Notice Issued Date-Time: 11/18/2019 12:45 Notice Type: Medicare Outpatient Observation Notice Notice Delivered To: Patient Relationship to Patient: Self Landscape Architect And Planner Name: Chloe Fitzgerald Delivery Method: HAND - Hand Delivered Chely Days: Prior Verbal Notification: Recipient Understood Notice: Yes Recipient Signature: Yes Med Rec Note Co-signed by Attending: Coverage Notice Comment: Merino signed by and given to patient. Copy to chart. Reviewer: [id number] Vincenzo David Notice Issued Date-Time: 11/18/2019 12:45 Notice Type: Patient Choice Letter Notice Delivered To: Patient Relationship to Patient: Self Landscape Architect And Planner Name: Chloe Fitzgerald Delivery Method: HAND - Hand Delivered Chely Days: Prior Verbal Notification: Recipient Understood Notice: Yes Recipient Signature: Yes Med Rec Note Co-signed by Attending: Coverage Notice Comment: Patient choice for [facility]. Last DP export: 11/18/19 11:54 am Patient Name: CHLOE FITZGERALD Page [phone] at 1742 All edits/amendments must be made on the electronic document DICTATION DATE: 11/18/191741 DOORPERSON: KAYY 11/18/191741 RPT#: [id number] DC DATE:11/18/19 STATUS: DIS IN [facility] [address] [place] [address] END OF REPORT
--- NOTE | 2019-11-19 09:29 | MORECARE ---
CASE MANAGEMENT DISCHARGE SUMMARY PATIENT: CHLOE FITZGERALD UNIT: [id number] ADM DATE: 11/16/19 AGE: 69 : 51 SEX: F ROOM/BED: D.2225 AUTHOR: CLAY,DOC PHYSICIAN: REFERRING PHYSICIAN: CARLOS ZAIDI DO DATE OF SERVICE: 11/19/19 Discharge Plan Patient Name: CHLOE FITZGERALD Facility: [facility]:[place] : 1950 Planned Disposition: Home Health Service Anticipated Discharge Date: 11/18/19 Discharge Date: 11/18/2019 Expected LOS: 2 Initial Reviewer: [email or web address] Initial Review Date: 11/16/2019 Generated: 11/19/19 10:28 am DCP- Discharge Planning Updated by [email or web address]: Johnna David on 11/18/19 4:[address] CM met multiple times today in regards to DC planning. Patient would not provide a telephone number for her transportation, nor a name for her [facility] or a choice. Patient is not very cooperative. CM attempted to contact Sanaz Brown (emergency contact) multiple times, as well as nursing staff, but a return call was never received. Multiple messages left for Sanaz. CM spoke with patient regarding HHS, Rehab, SNF, but after the third visit, she admitted that she has [facility]. CM contacted [facility], spoke with O/C nurse to advise of patient's discharge. DCP- Discharge Planning Updated by [id number]: Johnna David on 11/18/19 8:[address] CM met with patient regarding DC needs/plans. Patient has a Prevena wound vac Right leg. Patient agrees to CM interview. PCP: Dr. Eli. Pharmacy: [facility]. Emergency contact: Sanaz Brown [phone]. DME: Walker, BSC, Shower chair. Patient lives in an apartment, 0 steps. Patient states that [facility] Care is in the home 5 days/week, 4 hours/day. CM left a VM for Sanaz Brown, with CM call back number. Notified patient's nurse that her Prevena dressing is leaking. Coverage Notice Reviewer: [id number] - Johnna David Notice Issued Date-Time: 11/18/2019 12:45 Notice Type: Medicare Outpatient Observation Notice Notice Delivered To: Patient Relationship to Patient: Self Wine Maker Name: Chloe Fitzgerald Delivery Method: HAND - Hand Delivered Chely Days: Prior Verbal Notification: Recipient Understood Notice: Yes Recipient Signature: Yes Med Rec Note Co-signed by Attending: Coverage Notice Comment: Merino signed by and given to patient. Copy to chart. Reviewer: [id number] Vincenzo David Notice Issued Date-Time: 11/18/2019 12:45 Notice Type: Patient Choice Letter Notice Delivered To: Patient Relationship to Patient: Self Wine Maker Name: Chloe Fitzgerald Delivery Method: HAND - Hand Delivered Chely Days: Prior Verbal Notification: Recipient Understood Notice: Yes Recipient Signature: Yes Med Rec Note Co-signed by Attending: Coverage Notice Comment: Patient choice for [facility]. Last DP export: 11/18/19 4:42 pm Patient Name: CHLOE FITZGERALD Page [phone] at 0929 All edits/amendments must be made on the electronic document DICTATION DATE: 11/19/19927 PLATFORM LOADER: KAYY 11/19/19927 RPT#: [id number] DC DATE:11/18/19 STATUS: DIS IN [facility] [address] [place] [address] END OF REPORT
== END 2019-11-18 14:32 | disposition home health service (06) ==
LOC: D.OPS 10:00 → D.PAN 12:00 → D.OPS 12:00 → D.MS 17:40 → OBSVTIME 17:53 → D.MS 11-18 14:32
PROVIDERS: Anesthesiology; ADMIT Orthopaedic Surgery; ATTEND Orthopaedic Surgery
DX: S71.101A Unspecified open wound, right thigh, initial encounter (principal); X58.XXXA Exposure to other specified factors, initial encounter; Z86.73 Personal history of transient ischemic attack (TIA), and cerebral infarction without residual deficits; G20 Parkinson's disease; I11.0 Hypertensive heart disease with heart failure; I50.9 Heart failure, unspecified; I48.91 Unspecified atrial fibrillation; J44.9 Chronic obstructive pulmonary disease, unspecified; I73.9 Peripheral vascular disease, unspecified

== ENCOUNTER 2019-11-22 05:30 | Inpatient (IN) | payer MEDICARE, MEDICAID ==
[2019-11-22] VITALS (76 sets, daily range): BP systolic 52–161; BP diastolic 25–118; BMI 25.6
[~2019-11-22] VITALS: Ht 165.1 cm; Wt 71.2 kg
[2019-11-22 05:51] LABS: APTT 52.2 SECONDS (22.8-39.4); INR 3.41 (0.85-1.17); PROTIME 33.8 SECONDS (11.6-15.0)
[2019-11-22 06:01] LABS: HEMATOCRIT 34.9 % (36.0-48.0); HEMOGLOBIN 11.2 g/dL (12-16); MCH 28.4 pg (26.0-34.0); MCHC 32.1 g/dL (31.0-37.0); MCV 88.4 fL (80.0-100.0); MEAN PLATELET VOLUME 11.2 fL (7.4-10.4); PLATELET COUNT 285 10x3/uL (130-400); RBC 3.95 10x6/uL (4.00-5.40); RDW 15.4 % (11.5-14.5)
[2019-11-22 07:04] LABS: BILIRUBIN NEGATIVE (NEGATIVE); GLUCOSE NEGATIVE (NEGATIVE); KETONE NEGATIVE (NEGATIVE); NITRITE NEGATIVE (NEGATIVE); SPECIFIC GRAVITY 1.015 (1.005-1.020); UROBILINOGEN NORMAL (NORMAL)
--- NOTE | 2019-11-22 07:10 | NUR ---
ASSUMED CARE OF PT AT THIS TIME. PT AWAKE AND ALERT. BP FLUCTUATING GREATLY. DR MEJIA NOTIFIED AT THIS TIME. RT AT BEDSIDE ATTEMPTING BLOOD GASES.
[2019-11-22 07:39] LABS: ALBUMIN 1.6 g/dL (3.4-5.0); ALKALINE PHOSPHATASE 186 U/L (30-120); ALT (SGPT) 19 U/L (10-68); BILIRUBIN - TOTAL 0.27 mg/dL (0.2-1.3); CALC OSMOLALITY 285 mosm/kg (275-300); CARBON DIOXIDE 16.5 mmol/L (21.0-32.0); CHLORIDE - SERUM 104 mmol/L (98-107); CKMB 21.5 U/L (0.0-3.6); CREATININE - SERUM 5.2 mg/dL (0.6-1.3); FERRITIN 69 ng/mL (3-244); GLUCOSE 84 mg/dL (74-106); PRO BNP 8658 pg/mL (0-125); PROTEIN - SERUM 4.4 g/dL (6.4-8.2); SODIUM 134 mmol/L (136-145); THYROID STIMULATING HORMONE 1.86 uIU/mL (0.36-3.74); TROPONIN-I < 0.017 ng/mL (0.000-0.060); UREA NITROGEN 66 mg/dL (7-18); eGFR NON AFRICAN AMERICAN 9 mL/min (90-120)
[2019-11-22 07:40] LABS: CREATINE KINASE 3261 UL (21-215)
[2019-11-22 07:43] LABS: CALCIUM 6.4 mg/dL (8.5-10.1); POTASSIUM - SERUM 6.2 mmol/L (3.5-5.1)
--- NOTE | 2019-11-22 07:44 | NUR ---
FSBS - 92, ERP INFORMED
--- NOTE | 2019-11-22 07:45 | NUR ---
PT REMAINS HYPOTENSIVE AT THIS TIME. DR MEJIA NOTIFIED. AWAITING ORDERS.
--- NOTE | 2019-11-22 07:45 | NUR ---
CRITICAL LABS: K= 6.2 CALCIUM = 6.4 LACTIC ACID = 2.3
--- NOTE | 2019-11-22 07:50 | NUR ---
PT REMAINS ALERT AND ORIENTED AT THIS TIME. ASYMPTOMATIC OF HYPOTENSION.
[2019-11-22 07:53] LABS: C-REACTIVE PROTEIN 32.8 mg/dL (0.0-0.9)
--- NOTE | 2019-11-22 08:36 | NUR ---
COVID-19 SWAB TESTING PERFORMED AND SENT TO THE LAB.
[2019-11-22 08:47] LABS: LYMPHOCYTES 14 % (15-50); MONOCYTES 17 % (2-11); NEUTROPHILS 63 % (40-80)
[2019-11-22 08:48] LABS: PLATELET ESTIMATE NORMAL
[2019-11-22 08:49] LABS: ROULEAUX OCC
--- NOTE | 2019-11-22 09:15 | NUR ---
RECEIVED FROM ER. PUI IN COVID PRECAUTIONS. PT ON 8L HIGH FLOW O2. PT HAS RAMÍREZ. PT HAS IVS TO RIGHT AC, LEFT AC, AND LEFT WRIST. LEVOPHED, BICARB, AND CALCIUM GLUCONATE INFUSING. PT ALERT AND ORIENTED AT THIS TIME.
--- NOTE | 2019-11-22 10:10 | NUR ---
CALLED PHARMACY TO BRING UP SHAILA.
--- NOTE | 2019-11-22 10:32 | NUR ---
PATIENT IS NOW R/O COVID AND CAN NOT HAVE UPDRAFT PER PROTOCOL
--- NOTE | 2019-11-22 12:15 | NUR ---
DR MOYA AND DR DAVEY HAVE ROUNDED ON PT. WANT CENTRAL LINE PLACED WITH TRIALYSIS ACCESS. DR HUNT PAGED AND WILL PLACE LINE.
--- NOTE | 2019-11-22 14:00 | NUR ---
ATTEMPTED TO DRAW LAB FROM PT. UNABLE TO GET BLOOD. 3RD HABILITATION SPECIALIST DOWN TO TRY TO GET BLOOD. DR HUNT WENT TO HIS OFFICE THEN STATED HE WOULD BE BACK TO THE UNIT TO PLACE CENTRAL LINE. WILL CONTINUE TO MONITOR.
[2019-11-22 15:10] LABS: BASOPHILS 0 % (0-2); EOSINOPHILS 0 % (0-7); HEMATOCRIT 32.9 % (36.0-48.0); HEMOGLOBIN 10.6 g/dL (12-16); IMMATURE GRANULOCYTES 0.6 % (0-5); LYMPHOCYTES 7.8 % (15-50); MCH 28.2 pg (26.0-34.0); MCHC 32.2 g/dL (31.0-37.0); MCV 87.5 fL (80.0-100.0); MEAN PLATELET VOLUME 10.4 fL (7.4-10.4); MONOCYTES 13.9 % (2-11); NEUTROPHILS 77.7 % (40-80); PLATELET COUNT 293 10x3/uL (130-400); RBC 3.76 10x6/uL (4.00-5.40); RDW 15.3 % (11.5-14.5)
[2019-11-22 15:11] LABS: WBC 4.8 10x3/uL (4.8-10.8)
[2019-11-22 15:58] LABS: ALBUMIN 1.6 g/dL (3.4-5.0); ALKALINE PHOSPHATASE 185 U/L (30-120); ALT (SGPT) 23 U/L (10-68); BILIRUBIN - TOTAL 0.26 mg/dL (0.2-1.3); CALC OSMOLALITY 289 mosm/kg (275-300); CARBON DIOXIDE 18.2 mmol/L (21.0-32.0); CHLORIDE - SERUM 103 mmol/L (98-107); CREATININE - SERUM 4.8 mg/dL (0.6-1.3); GLUCOSE 118 mg/dL (74-106); POTASSIUM - SERUM 5.3 mmol/L (3.5-5.1); PROTEIN - SERUM 4.6 g/dL (6.4-8.2); SODIUM 134 mmol/L (136-145); TROPONIN-I < 0.017 ng/mL (0.000-0.060); UREA NITROGEN 71 mg/dL (7-18); eGFR NON AFRICAN AMERICAN 10 mL/min (90-120)
[2019-11-22 16:00] LABS: CALCIUM 6.2 mg/dL (8.5-10.1); CREATINE KINASE 3699 UL (21-215)
[2019-11-22 16:01] LABS: CKMB 35.7 U/L (0.0-3.6)
--- NOTE | 2019-11-22 16:48 | NUR ---
CALCIUM WAS CRITICALLY LOW. DR OMER MADE AWARE. NEW ORDERS PLACED. CALCIUM GLUCONATE GIVEN.
--- NOTE | 2019-11-22 18:55 | NUR ---
CENTRAL LINE PLACED TO RIGHT SUBCLAVIAN BY DR HUNT. VERIFIED BY XRAY. ABLE TO USE. NEW BAGS OF LEVOPHED AND BICARB HUNG. PT TOLERATED PROCEDURE WELL.
--- NOTE | 2019-11-22 19:00 | NUR ---
REPORT RECEIVED. PT RESTING IN BED, AAXO4. PT LETHARGIC, TACHYPNEA, TACHYCARDIA. RT IJ TRIALYSIS PORT INFUSING, SEE IV FLOWSHEET. ASSESSMENT COMPLETED, SEE FLOWSHEET.
--- NOTE | 2019-11-22 21:00 | NUR ---
PT VOMITING SMALL AMOUNTS OF YELLOW-GREEN EMESIS. WILL CONTINUE TO MONITOR.
--- NOTE | 2019-11-22 23:00 | NUR ---
REASSESSMENT COMPLETED. DR GARCES PAGED REGARDING HR INCREASE TO 140'S. NEW ORDERS RECEIVED.
[2019-11-23] VITALS (96 sets, daily range): BP systolic 78–158; BP diastolic 44–121; Ht 165.1 cm; Wt 71.2 kg
--- NOTE | 2019-11-23 00:56 | NUR ---
DR OMER PAGED REGARDING VOMITING. NEW ORDERS RECEIVED.
[2019-11-23 05:39] LABS: BASOPHILS 0.2 % (0-2); EOSINOPHILS 0 % (0-7); HEMATOCRIT 33.4 % (36.0-48.0); HEMOGLOBIN 11.1 g/dL (12-16); IMMATURE GRANULOCYTES 1.4 % (0-5); LYMPHOCYTES 4.7 % (15-50); MCHC 33.2 g/dL (31.0-37.0); MEAN PLATELET VOLUME 10.7 fL (7.4-10.4); MONOCYTES 11.7 % (2-11); PLATELET COUNT 335 10x3/uL (130-400); RBC 3.96 10x6/uL (4.00-5.40); RDW 15.3 % (11.5-14.5)
[2019-11-23 05:40] LABS: MCV 84.3 fL (80.0-100.0); WBC 8.1 10x3/uL (4.8-10.8)
[2019-11-23 05:42] LABS: APTT 56.7 SECONDS (22.8-39.4); PROTIME 38.2 SECONDS (11.6-15.0)
[2019-11-23 06:24] LABS: AMYLASE - SERUM 23 U/L (25-115); CALC OSMOLALITY 292 mosm/kg (275-300); CHLORIDE - SERUM 99 mmol/L (98-107); CREATININE - SERUM 5.1 mg/dL (0.6-1.3); GLUCOSE 120 mg/dL (74-106); LIPASE 61 U/L (73-393); MAGNESIUM - SERUM 1.4 mg/dL (1.8-2.4); PHOSPHOROUS 5.1 mg/dL (2.5-4.9); POTASSIUM - SERUM 5.4 mmol/L (3.5-5.1); SODIUM 134 mmol/L (136-145); UREA NITROGEN 80 mg/dL (7-18); VANCOMYCIN - RANDOM 13.5 ug/mL (10.0-20.0); eGFR NON AFRICAN AMERICAN 9 mL/min (90-120)
[2019-11-23 06:30] LABS: CARBON DIOXIDE 23.6 mmol/L (21.0-32.0); CREATINE KINASE 2558 UL (21-215)
[2019-11-23 06:31] LABS: CALCIUM 6.1 mg/dL (8.5-10.1); CKMB 11.6 U/L (0.0-3.6)
--- NOTE | 2019-11-23 08:43 | NUR ---
Prevena dressing in place right leg. Dressing is compressed. There is no drainage noted in the cannister. Wound care will monitor.
--- NOTE | 2019-11-23 08:59 | NUR ---
VAPOTHERM 40L/100%
--- NOTE | 2019-11-23 09:45 | NUR ---
0700 PT RECIEVED ALERT AND ORIENTED, RESPIRATORY RATE LABORED AND SPO2 90%, RT AWARE AND O2 INCREASED, PT VOMITING GREEN FOUL SMELLING LIQUID, RAMÍREZ DRAINING YELLOW URINE, SEE IV FLOWSSHEET AND SHIFT ASSESSMENT FOR DETAILS ABGS OBTAINED, PAGED DR MOYA, NOTIFIED OF BLOOD CULTURES, TEMP AND ABGS ALONG WITH PTS VOMITING NGT INSERTED TO R NARE, LIWS, LARGE AMOUNTS OF GREEN DRAINAGE PT PLACED ON VAPOTHERM BY RT PT CONTINUES WITH GREEN EMESIS AFTER NGT PLACED, NGT PATENT AND SUCTION WORKING, ORAL SUCTIONING DONE WELL, SPO2 HAS POOR WAVEFORM BUT READS 92% CHG BATH AND LINEN CHANGE DONE
--- NOTE | 2019-11-23 10:56 | NUR ---
SPOKE WITH DR MOYA PT RESPIRATORY STATUS APPEARS TO BE MORE LABORED THOUGH SPO2 88-94% SPOKE WITH DR ZAIDI ABOUT CONSULT
--- NOTE | 2019-11-23 11:47 | NUR ---
OT NOTE: HOLD ON EVAL; PT JUST INTUBATED AND RT STATES THAT THEY ARE HAVING A BRONCH ALSO TODAY. ANDREI HAWKINS, OTR/L
--- NOTE | 2019-11-23 12:50 | NUR ---
APPROX [address] MOYA, PT AGREEABLE TO INTUBATION AND BRONCHOSCOPY VIA VERBAL CONSENT, INTUBATED, FENTANYL FOR SEDATION STARTED AT 200MCG PER DR MOYA, NGT REMOVED AND REPLACED BY OGT PER DR MOYA, OGT ADVANCED APPROX 2INCHES AFTER XRAY, FAMILY NALLELY UPDATED BY MYSELF AND DR MOYA
--- NOTE | 2019-11-23 14:00 | NUR ---
REMOVED PREVENA DRESSING FROM RIGHT LOWER LEG. SKIN GRAFT IN PLACE. COVERED WITH ADAPTIC (AFTER GENTLY CLEANSING WITH SALINE) AND ABD PADS. SECURED AT EDGES WITH MEDIPORE. DRESSING REMOVED FROM DONOR SITE ON RIGHT UPPER LEG. CUT AWAY LOOSE ADAPTIC. APPLIED ADAPTIC, NONADHERENT GAUZE AND SECURED WITH TEGADERM.
--- NOTE | 2019-11-23 15:34 | NUR ---
SPOKE WITH DR HUNT ABOUT ILEUS/KUB
--- NOTE | 2019-11-23 17:25 | NUR ---
PT TOLERATING DIALYSIS WELL, NO NEEDS NOTED, DIALYSIS NURSE AT BEDSIDE, WILL CONTINUE TOMONITOR
--- NOTE | 2019-11-23 19:00 | NUR ---
RECIVED REPORT AT BEDSIDE. PT IS INTUBATED/SEDATED. VSS AT THIS TIME. RESTRAINTS ARE OBSERVED WITH GOOD CAP REFILL IN HANDS BILAT THAT ARE WARM AND PINK. IJ IS IN THE RIGHT SIDE OF NECK CDI. WILL DO FULL ASSESSMENT AND DOC IN FLOW SHEET. WILL PROVIDE FULL ORAL CARE AND REPOSTION FOR COMFORT. BRIDGED FEET OFF BED WITH A PILLOW. WILL DOC IV MEDS IN FLOW SHEET. BED IS LOW,SIDE RAISLX2,CALL LGIHT WITHIN REACH. WILLC ONTINUE TO MONITOR
--- NOTE | 2019-11-23 19:20 | NUR ---
PAGED AT THIS TIME 1922 CALLED BACK. UPDATED HIM ON PT STATUS AND HER NEW HR OF 170'S/ 180/S A.FIB C RVR. T.O TO GIVE AMIODARONE 150MG BOLUS OVER 10 MINUTES AND THEN TO START AMIODARONE 1MG OVER 6 HOURS THEN TO CHANGE TO 0.5MG AFTER THE 6 HOURS UNTILL PT IMPROVES OR CAN TAKE PO MEDS. T.O READ BACK CORRECT. HE ALSO SAID HE WOULD BE UP AT THE HOSPITAL SHORTLY.
--- NOTE | 2019-11-23 20:48 | NUR ---
PT IS RESTING IN BED INTUBATED/SEDATED. HR HAS COME DOWN TO 122 A.FIB AT THIS TIME WHICH IS IMPROVEMENT. ALL OTHER VS ARE STABLE. BED IS LOW,SIDE RAISLX2,CALL LIGHT WITHIN REACH. WILL CONITNUE TO MONITOR
--- NOTE | 2019-11-23 21:55 | NUR ---
PT IS RESTING IN BED SEDATED/INTUBATED. SHE REPONDS TO PAIN AND TOUCH. VSS. PROVIDED ORAL CARE AT THIS TIME AND REPOSITIONED FOR COMFORT. BED IS LOW,SIDE RAISLX2,CALL LIGHT WITHIN REACH. WILL CONINTUE TO MONITOR
--- NOTE | 2019-11-23 23:00 | NUR ---
PT IS RESTING IN BED INTUABTED/SEDATED. HER VSS. PROVIDED ORAL CARE AND REPOSTIONED FOR COMFRT. OBSERVED RESTRAINTS PER PROTOCOL. RE-ASSESSMENT DONE AND WILL DOC IN FLOW SHEET. BED IS LOW,SIDE RAISLX2,CALL DIANE LEROY. WILL CONITNUE TO MONITOR
[2019-11-24] VITALS (94 sets, daily range): BP systolic 75–136; BP diastolic 47–97
--- NOTE | 2019-11-24 01:07 | NUR ---
PT IS RESTING IN BED INTUBATED/SEDATED. VSS. PROVIDED ORAL CARE AND REPOSITIONED FOR COMFORT. HEELS ARE BRIDGED OFF BED. DECREASED LEVOPHED WHICH IS DOC IN IV FLOW SHEET. BED IS LOW,SIDE RAISLX2,CALL LIGHT WITHIN REACH. WILL COINTUE TO MONITOR
--- NOTE | 2019-11-24 03:02 | NUR ---
PT IS RESTING IN BED INTUBATED/SEDATED. VSS. PERFORMED RE-ASSESSMENT AND WILL DOC IN FLOW SHEET. PROVIDED ORAL CARE AND RESPOSITIONED FOR COMFORT. HEELS ARE BRIDGED OFF BED. RESTRAINTS WERE OBSERVED PER PROTOCOL. BED WAS LEFT LOW,SIDE RAISLX2,CALL LIGHT WITHIN REACH. WILL CONTINUE TO MONITOR
[2019-11-24 04:43] LABS: BASOPHILS 0 % (0-2); EOSINOPHILS 0 % (0-7); HEMATOCRIT 29.5 % (36.0-48.0); HEMOGLOBIN 9.5 g/dL (12-16); IMMATURE GRANULOCYTES 1.9 % (0-5); MCH 27.4 pg (26.0-34.0); MCHC 32.2 g/dL (31.0-37.0); MEAN PLATELET VOLUME 9.7 fL (7.4-10.4); MONOCYTES 9.9 % (2-11); NEUTROPHILS 84.2 % (40-80); RBC 3.47 10x6/uL (4.00-5.40); RDW 15.6 % (11.5-14.5); WBC 8.5 10x3/uL (4.8-10.8)
[2019-11-24 04:44] LABS: PLATELET COUNT 255 10x3/uL (130-400)
--- NOTE | 2019-11-24 05:02 | NUR ---
PT IS RESTING IN BED WITH EYES OPEN INTUBATED/SEDATED. SHE DOES NOT APEAR TO BE IN DISTRESS. VSS. ORAL CARE PROVIDED AND REPOSITIONED HER FOR COMFORT. BED IS LOW,SIDE RAISLX2,CALL LIGHT WTIHIN REACH. WILL CONITNUE TO MONITOR
[2019-11-24 05:13] LABS: AMYLASE - SERUM 18 U/L (25-115); CALC OSMOLALITY 288 mosm/kg (275-300); CHLORIDE - SERUM 98 mmol/L (98-107); CREATININE - SERUM 4.5 mg/dL (0.6-1.3); GLUCOSE 118 mg/dL (74-106); MAGNESIUM - SERUM 1.7 mg/dL (1.8-2.4); PHOSPHOROUS 5.9 mg/dL (2.5-4.9); POTASSIUM - SERUM 5.1 mmol/L (3.5-5.1); SODIUM 135 mmol/L (136-145); UREA NITROGEN 63 mg/dL (7-18); eGFR NON AFRICAN AMERICAN 10 mL/min (90-120)
[2019-11-24 05:15] LABS: INR 1.91 (0.85-1.17); PROTIME 21.6 SECONDS (11.6-15.0)
[2019-11-24 05:18] LABS: CARBON DIOXIDE 29.6 mmol/L (21.0-32.0); LIPASE 37 U/L (73-393)
[2019-11-24 05:19] LABS: CALCIUM 6.4 mg/dL (8.5-10.1); CREATINE KINASE 1232 UL (21-215)
[2019-11-24 05:21] LABS: CKMB 4.2 U/L (0.0-3.6)
--- NOTE | 2019-11-24 06:47 | NUR ---
PT IS RESTING IN BED WITH EYES CLOSED INTUBATED/SEDATED. VSS. REPOSITIONED AND PROVIDED ORAL CARE AT THIS TIME. BED WAS LEFT LOW,SIDE RAISLX2,CALL LIGHT WITHIN REACH. WILL CONINTUE TO MONITOR
--- NOTE | 2019-11-24 07:00 | NUR ---
BEDSIDE REPORT RECEIVED. SHIFT ASSESSMENT COMPLETED PER FLOWSHEET, SEE FLOWSHEET FOR INFORMATION. VSS. PT RESTING IN BED INTUBATED AND SEDATED. NO ACUTE NEEDS OR DISTRESS NOTED AT THIS TIME. WILL CONT TO MONITOR.
--- NOTE | 2019-11-24 09:00 | NUR ---
PT RESTING IN BED INTUBATED AND SEDATED. ORAL CARE GIVEN PER COMFORT. WILL CONT TO MONITOR.
--- NOTE | 2019-11-24 11:00 | NUR ---
REASSESSMENT COMPLETED PER FLOWSHEET, SEE FLOWSHEET FOR INFORMATION. VSS. PT RESTING IN BED INTUBATED AND SEDATED. WILL CONT TO MONITOR.
--- NOTE | 2019-11-24 13:00 | NUR ---
SPOKE WITH CAREGIVER ON PHONE, AND UPDATE GIVEN. VSS. WILL CONT TO MONITOR.
--- NOTE | 2019-11-24 15:00 | NUR ---
PTINTUBATED AND SEDATED RESTING IN BED. INCREASED SEDATION PER COMFORT. WILL CONT TO MONITOR.
--- NOTE | 2019-11-24 15:00 | NUR ---
REASSESSMENT COMPLETED PER FLOWSHEET, SEE FLOWSHEET FOR INFORMATION. VSS. WILL CONT TO MONITOR.
[2019-11-24 15:10] LABS: ACID FAST SMEAR Negative (()); AFB SPECIMEN PROCESSING Concentration (())
--- NOTE | 2019-11-24 17:00 | NUR ---
PT INTUBATED AND SEDATED. MEDICATIONS GIVEN. VSS. WILL CONT TO MONITOR.
--- NOTE | 2019-11-24 18:50 | NUR ---
PT IS LAYING IN BED ON RIGHT SIDE INTUBATED/SEDATED. SHE IS TWITCHING AND SEEMS TO BE ANXIOUS. WHILE GETTING BEDSIDE REPORT DAY SHIFT NURSE INFORMED ME THAT SHE HAS HAD TO GIVE VERSED Q2H DUE TO HER TWITCHING WELL. HAS VERBALIZED TO KEEP HER CALM BY GIVING WHAT IS SCHEDULED PRN WHEN NEEDED. HER VS ARE STABLE. RESTRAINTS OBSERVED WITH GOOD CAP REFILL TO BOTH BILAT UPPER EXTREMITIES. BILAT HANDS ARE PINK AND WARM. RAMÍREZ CATHETOR OBSERVED HANGINIG BELOW BLADDER AND DRAINING. PERFOMRED FULL ASSESSMENT AND WILL DOC IN FLOW SHEET. TURNED TO LEFT SIDE FOR COMFORT AND PROVIDED ORAL CARE. HEELS ARE BRIDGED OFF BED. HER TOES ARE PURPLE ON BOTH BILAT FEET BUT I CAN FEEL A PULSE TO BOTH EXTREMITES. BED IS LEFT LOW,SIDE RAISLX2,CALL LGITH WITHIN REACH. WILL CONINTUE TO MONITOR
--- NOTE | 2019-11-24 19:52 | NUR ---
PT APPEARS TO BE MORE CALM AFTER ADMINISTERING VERSED 2MG PER PRN ORDER. VSS. SHE IS NOT TWITCHING AT THIS TIME. BED IS LOW,SIDE RAISLX2,CALL LIGHT WTIHIN REACH. WILL CONINTUE TO MONITOR
--- NOTE | 2019-11-24 21:00 | NUR ---
PT IS RESTING IN BED INTUBATED/SEDATED. SHE STILL IS RESTLESS/AND JERKING OFTEN. VSS. I INCREASED FENTYLE SEDATION FROM 300 TO 350 TO TRY TO MAKE PT MORE COMFORTABLE AND LESS RESTLESS AND ANXIOUS. I WILL CONITNUE TO MONITOR THIS. REPOSITOINED FOR COMFORT AND PROVIDED ORAL CARE WHILE EXPLAINING WHAT I WAS DOING BEFORE I DID IT. BED WAS LEFT LOW,SIDE RAISLX2,CALL LIGHT WITHIN REACH. WILL CONITNUE TO MONITOR
--- NOTE | 2019-11-24 23:00 | NUR ---
PT IS RESTING IN BED WITH EYES CLOSED. INTUBATED/SEDATED. VSS. PT SEEMS TO BE MORE CALM NOW SINCE INCREASE SEDATION BUT STILL OPEN EYES WHEN CALLED NAME AND RESPONDS TO PAIN. RE-ASSESSMENT DONE AND WILL DOC IN FLOW SHEET. RESPOSITONED FOR COMFORT AND PROVIDED ORAL CARE. BED IS LOW,SIDE RAISLX2,CALL LIGHT WIHTIN REACH. OBSTRIANTS WERE OBSERVED AND DOCUMENTED
[2019-11-25] VITALS (90 sets, daily range): BP systolic 69–149; BP diastolic 49–139
--- NOTE | 2019-11-25 00:46 | NUR ---
PT IS RESTING IN BED INTUBATED/SEDATED. VSS. PERFORMED ORAL CARE AND RESPOSITIONED FOR COMFORT. HEELS ARE BRIDGED OFF BED. RESTRAINTS OBSERVED AND DOC IN FLOWSHEET. BED IS LOW,SIDE RAISLX2,CALL LIGHT WITHIN REACH. WILL CONITNUE TO MONITOR
--- NOTE | 2019-11-25 02:48 | NUR ---
PT IS RESTING IN BED WITH EYES CLOSED. INTUBATED/SEDATED. VSS. PERFORMED RE-ASSESSMENT AND WILL DOC IN FLOWSHEET. PROVIDED ORAL CARE AND RESPOSTIONED FOR COMFORT. RESTRATINST WERE OBSERVED AND WILL DOC IN FLOWSHEET. BED IS LEFT LOW,SIDE RAISLX2,CALL LGITH WITHIN REACH. WILL CONITNUE TO MONITOR
--- NOTE | 2019-11-25 03:45 | NUR ---
PT IS RESTING IN BED WITH EYES CLOSED. VSS. BED IS LOW,SIDE RIASLX2,CALL LIGHT WITHIN REACH. WILL CONTINUE TO MONITOR
[2019-11-25 04:45] LABS: BASOPHILS 0.1 % (0-2); EOSINOPHILS 0 % (0-7); HEMATOCRIT 25.8 % (36.0-48.0); HEMOGLOBIN 8.2 g/dL (12-16); IMMATURE GRANULOCYTES 0.4 % (0-5); LYMPHOCYTES 3.6 % (15-50); MCH 27.2 pg (26.0-34.0); MCHC 31.8 g/dL (31.0-37.0); MCV 85.7 fL (80.0-100.0); MEAN PLATELET VOLUME 10.2 fL (7.4-10.4); MONOCYTES 11.2 % (2-11); NEUTROPHILS 84.7 % (40-80); PLATELET COUNT 209 10x3/uL (130-400); RBC 3.01 10x6/uL (4.00-5.40); RDW 15.6 % (11.5-14.5); WBC 7.6 10x3/uL (4.8-10.8)
[2019-11-25 04:57] LABS: ANION GAP 15.8 mmol/L (8-16); CARBON DIOXIDE 25.2 mmol/L (21.0-32.0); VANCOMYCIN - RANDOM 16.6 ug/mL (10.0-20.0)
[2019-11-25 05:01] LABS: CALCIUM 5.9 mg/dL (8.5-10.1)
--- NOTE | 2019-11-25 05:05 | NUR ---
PT IS LAYING IN BED AND IS JERKING AND RESTLESS. I JUST ADMINSISTERED AND DOC IN [facility] VERSED PRN TO HELP HER TO CALM DOWN. HER VSS. SHE HAS EYES OPENS AND LOOKS AT ME WHILE I TALK TO HER. WHEN ASKING HER IF SHE IS IN ANY PAIN SHE SHAKES HER HEAD NO. I PROVIDED A FULL BED BATH AT THIS POINT WHICH SHE TOLERATED WELL. PROVIDED ORAL CARE AND RESPOSITIONED. BED WAS LEFT LOW,SIDE RAISLX2,CALL LIGHT WITHIN REACH. RESTRAINTS WERE OBSERVED
--- NOTE | 2019-11-25 05:28 | NUR ---
PT IS VERY RESTLESS IN BED. VSS. REPOSTIONED FOR COMFORT AND INCREASED FENTLYN AT THIS TIME TO 400. DOC IN DRIP FLOW SHEET. HAVE GIVEN VERSED OVER AN HOUR AGO THAT HAS NOT SEEMED TO HELP. BED IS LOW,SIDE RIASLX2,CALL LIGHT WITHIN RECH. WILL CONITNUE TO MONITOR
--- NOTE | 2019-11-25 06:02 | NUR ---
PT IS FINALLY RESTING MORE CALMLY WITH EYES CLOSED. VSS. BED IS LOW,SIDE RAISLX2,CALL LIGHT WITHIN REACH. WILL CONINTUE TO MONITOR
--- NOTE | 2019-11-25 12:49 | NUR ---
DR MOYA HERE AND IS TALKING TO PT ONLY FAMILY MEMBER JAVIER BROWNING. NALLELY STATES THAT THE PT WISHES HAVE ALWAYS BEEN NOT TO SHOCK AND NOT DO CHEST COMPRESSIONS. MED CODE ONLY ORDERED.
[2019-11-25 15:42] LABS: ANION GAP 13.9 mmol/L (8-16); CARBON DIOXIDE 28.1 mmol/L (21.0-32.0); CREATININE - SERUM 5.4 mg/dL (0.6-1.3)
[2019-11-25 15:47] LABS: CALCIUM 6.3 mg/dL (8.5-10.1)
--- NOTE | 2019-11-25 19:00 | NUR ---
REPORT RECEIVED. PT SEDATED ON VENT. NO ACUTE DISTRESS NOTED. SOFT WRIST RESTRAINTS IN PLACE, RT IJ TRIALYSIS INFUSING, SEE IV FLOWSHEET. ASSESSMENT COMPLETED, SEE FLOWSHEET. WILL CONTINUE TO MONITOR.
--- NOTE | 2019-11-25 21:00 | NUR ---
PT SEDATED ON VENT, NO ACUTE DISTRESS NOTED.
--- NOTE | 2019-11-25 23:00 | NUR ---
REASSESSMENT COMPLETED, SEE FLOWSHEET.
[2019-11-26] VITALS (95 sets, daily range): BP systolic 73–184; BP diastolic 41–171
--- NOTE | 2019-11-26 01:00 | NUR ---
PT SEDATED ON VENT, WILL CONTINUE TO MONITOR.
--- NOTE | 2019-11-26 03:00 | NUR ---
REASSESSMENT COMPLETED, SEE FLOWSHEET.
--- NOTE | 2019-11-26 04:00 | NUR ---
PAGED DR CALDERON. AWAITING RESPONSE.
--- NOTE | 2019-11-26 05:00 | NUR ---
PT SEDATED ON VENT. REPOSITIONED FOR COMFORT.
[2019-11-26 06:19] LABS: APTT 36.2 SECONDS (22.8-39.4); INR 1.19 (0.85-1.17)
[2019-11-26 06:27] LABS: HEMATOCRIT 26.8 % (36.0-48.0); HEMOGLOBIN 8.5 g/dL (12-16); MCH 27.7 pg (26.0-34.0); MCHC 31.7 g/dL (31.0-37.0); MCV 87.3 fL (80.0-100.0); MEAN PLATELET VOLUME 10.4 fL (7.4-10.4); PLATELET COUNT 201 10x3/uL (130-400); RBC 3.07 10x6/uL (4.00-5.40); RDW 15.3 % (11.5-14.5)
[2019-11-26 06:33] LABS: WBC 10.5 10x3/uL (4.8-10.8)
[2019-11-26 06:43] LABS: ALBUMIN 2.3 g/dL (3.4-5.0); ALKALINE PHOSPHATASE 77 U/L (30-120); ALT (SGPT) 17 U/L (10-68); BILIRUBIN - TOTAL 0.48 mg/dL (0.2-1.3); CALC OSMOLALITY 295 mosm/kg (275-300); CARBON DIOXIDE 24.5 mmol/L (21.0-32.0); CHLORIDE - SERUM 97 mmol/L (98-107); CREATINE KINASE 489 UL (21-215); CREATININE - SERUM 5.2 mg/dL (0.6-1.3); GLUCOSE 102 mg/dL (74-106); MAGNESIUM - SERUM 2.3 mg/dL (1.8-2.4); PHOSPHOROUS 6.2 mg/dL (2.5-4.9); POTASSIUM - SERUM 4.6 mmol/L (3.5-5.1); PROTEIN - SERUM 5.5 g/dL (6.4-8.2); SODIUM 136 mmol/L (136-145); UREA NITROGEN 81 mg/dL (7-18); VANCOMYCIN - RANDOM 23.6 ug/mL (10.0-20.0); eGFR NON AFRICAN AMERICAN 9 mL/min (90-120)
[2019-11-26 06:50] LABS: CALCIUM 6.9 mg/dL (8.5-10.1)
[2019-11-26 06:51] LABS: CKMB 1.9 U/L (0.0-3.6)
--- NOTE | 2019-11-26 07:00 | NUR ---
PT REPORT RECEIVED FROM SUPERVISOR FIBERGLASS BOAT ASSEMBLY NURSE. NO ACUTE SIGNS OF DISTRESS NOTED. PT VENTED AND SEDATED. SHIFT ASSESSMENT COMPLETED. WILL CONTINUE TO MONITOR
--- NOTE | 2019-11-26 09:00 | NUR ---
PT RESTING IN BED. FAMILY IN ROOM. UPDATE GIVEN. WILL CONTINUE TO MONITOR
[2019-11-26 09:54] LABS: LYMPHOCYTES 14 % (15-50); MONOCYTES 13 % (2-11); NEUTROPHILS 72 % (40-80); PLATELET ESTIMATE NORMAL
--- NOTE | 2019-11-26 11:00 | NUR ---
PT RESTING IN BED. REASSESSMNET COMPLETED. NO SIGNS OF DISTRESS NOTED. WILL CONTINUE TO MONITOR
--- NOTE | 2019-11-26 11:11 | NUR ---
Nutrition follow-up: Pt intubated, sedated NPO Labs reviewed Wt: 156# Recommend starting Pulmocare @ 25 ml/hr with increase to goal rate of 40 ml/hr due to pt has been NPO since admit. RDN following.
[2019-11-26 12:09] LABS: FUNGUS STAIN Final report (())
--- NOTE | 2019-11-26 13:08 | NUR ---
PT RESTING IN BED. ZERO CVP. WILL CONTINUE TO MONITOR
--- NOTE | 2019-11-26 16:54 | NUR ---
FAMILY IN ROOM. PT RESTING IN BED. NO COMPLAINTS NOTED AT THIS TIME. WILL CONTINUE TO MONITOR
--- NOTE | 2019-11-26 17:45 | NUR ---
PT RESTING IN BED. ORAL CARE PROVIDED. NO SIGNS OF DISTRESS NOTED. WILL CONTINUE TO MONITOR
--- NOTE | 2019-11-26 19:52 | MORECARE ---
CASE MANAGEMENT DISCHARGE SUMMARY PATIENT: HAIM FITZGERALD UNIT: [id number] ADM DATE: 11/22/19 AGE: 69 : 51 SEX: F ROOM/BED: D.2313 AUTHOR: KAREN WILLIAMSON PHYSICIAN: REFERRING PHYSICIAN: EVA OMER MD DATE OF SERVICE: 11/26/19 Discharge Plan Patient Name: HAIM FITZGERALD Facility: [facility]:[place] : 1950 Planned Disposition: Anticipated Discharge Date: Discharge Date: Expected LOS: Initial Reviewer: [email or web address] Initial Review Date: 11/22/2019 Generated: 11/26/19 8:51 pm DCP- Discharge Planning Updated by [email or web address]: Shaylee Bowden on 11/23/19 2:[address] CM received a call from [facility] and Tracy explained that the patient's nurse is reporting that it isn't safe for patient to return to her home. She stated that the patient had previously been at [facility] and she was recommending that patient discharge back to a SNF facility. CM will continue to follow and assist as needed with discharge planning / needs. DCPIA - Discharge Planning Initial Assessment Updated by [email or web address]: Shaylee Bowden on 11/26/19 7:51 pm * Is the patient Alert and Oriented? No * How many steps to enter\exit or inside your home? * PCP NEGRA * Pharmacy [facility] * Preadmission Environment Home with Family * ADLs Partial Dependent * Partial ADLs (Assistance needed) Ambulation Bathing Dressing Eating Medication Management Toileting Transfers * Other Equipment HOME / PORT 02, WALKER, MED ALERT Patient Name: HAIM FITZGERALD Page [id number] at 1950 All edits/amendments must be made on the electronic document DICTATION DATE: 11/26/191950 STRAWHAT INSPECTOR AND PACKER: KAYY 11/26/191950 RPT#: [id number] DC DATE: STATUS: ADM IN [facility] [address] [id number] END OF REPORT
--- NOTE | 2019-11-26 20:17 | MORECARE ---
CASE MANAGEMENT DISCHARGE SUMMARY PATIENT: HAIM FITZGERALD UNIT: [id number] ADM DATE: 11/22/19 AGE: 69 : 51 SEX: F ROOM/BED: D.2313 AUTHOR: CLAY,DOC PHYSICIAN: REFERRING PHYSICIAN: EVA OMER MD DATE OF SERVICE: 11/26/19 Discharge Plan Patient Name: HAIM FITZGERALD Facility: [facility]:[place] : 1950 Planned Disposition: Anticipated Discharge Date: Discharge Date: Expected LOS: Initial Reviewer: [email or web address] Initial Review Date: 11/22/2019 Generated: 11/26/19 9:17 pm Comments DCP- Discharge Planning Updated by [email or web address]: Shaylee Bowden on 11/26/19 7:[address] Patient Name: HAIM FITZGERALD Admission Status: ER Accout number: [id number] Admission Date: 11-22-2019 : 1950 Admission Diagnosis:SEPSIS, UNSPECIFIED ORGANISM Attending: EVA OMER Current LOS: 4 Anticipated DC Date: Planned Disposition: Primary Insurance: [facility] MEDICARE SOLUTIONS Discharge Planning Comments: CM met with patient's niece Sanaz Brown to complete initial dc planning assessment. Patient is currently sedated on vent. CM educated patient on the CM role and verbal consent given by patient to complete assessment. Patient lives at home with Sanaz but Sanaz states that sometimes she is alone while aide is there. Patient is partially dependent with ADL's CM discussed availability of home health, rehab services, and medical equipment. Patient is current with [facility]. CM explained to Sanaz that [facility] had called and stated that they didn't feel like it would be a safe discharge for patient to go back home and Sanaz agreed. Sanaz states that the patient has a son that lives in [place] (oldest) doesn't know his number. She also stated that the patient's youngest son (Zena Menendez) will be in town sometime tonight from [place]. Sanaz stated that she thought the youngest son was planning on taking her back with him to [place]. JAY asked if there was a POA and Sanaz stated that she thought that the patient may have some POA paperwork at her apartment. Sanaz states that patient does have home / portable 02 uncertain of provider. Sanaz states that she has [facility] for healthcare facility administrator and [facility] . CM will continue to follow and will assist as needed with dc plans/needs. Registered Massage Therapist: Shaylee Bowden DCP- Discharge Planning Updated by [email or web address]: Shaylee Bowden on 11/23/19 2:[address] CM received a call from [facility] and Tracy explained that the patient's nurse is reporting that it isn't safe for patient to return to her home. She stated that the patient had previously been at [facility] and she was recommending that patient discharge back to a SNF facility. CM will continue to follow and assist as needed with discharge planning / needs. DCPIA - Discharge Planning Initial Assessment Updated by [email or web address]: Shaylee Bowden on 11/26/19 7:51 pm * Is the patient Alert and Oriented? No * How many steps to enter\exit or inside your home? * PCP NEGRA * Pharmacy [facility] * Preadmission Environment Home with Family * ADLs Partial Dependent * Partial ADLs (Assistance needed) Ambulation Bathing Dressing Eating Medication Management Toileting Transfers * Other Equipment HOME / PORT 02, WALKER, MED ALERT * List name and contact numbers for known caregivers / representatives who currently or will assist patient after discharge: SANAZ BROWN [facility] [phone] * Verbal permission to speak to the caregivers and representatives has been obtained from the patient. N/A * Community resources currently utilized Home Health * Please name any agencies selected above. [employer] [facility] * Additional services required to return to the preadmission environment? No * Can the patient safely return to the preadmission environment? Yes * Has this patient been hospitalized within the prior 30 days at any hospital? Yes Last DP export: 11/26/19 6:52 p Patient Name: HAIM FITZGERALD Page 54498 at 2016 All edits/amendments must be made on the electronic document DICTATION DATE: 11/26/192016 JAVA GROOVY DEVELOPER: KAYY 11/26/19 2017 RPT#: [id number] DC DATE: STATUS: ADM IN [facility] [address] [place] [address] END OF REPORT
[2019-11-27] VITALS (94 sets, daily range): BP systolic 85–132; BP diastolic 56–888
[2019-11-27 05:48] LABS: BASOPHILS 0.1 % (0-2); EOSINOPHILS 0 % (0-7); HEMATOCRIT 28.1 % (36.0-48.0); HEMOGLOBIN 8.8 g/dL (12-16); IMMATURE GRANULOCYTES 0.7 % (0-5); LYMPHOCYTES 4.7 % (15-50); MCH 27.5 pg (26.0-34.0); MCHC 31.3 g/dL (31.0-37.0); MCV 87.8 fL (80.0-100.0); MONOCYTES 8.2 % (2-11); NEUTROPHILS 86.3 % (40-80); PLATELET COUNT 237 10x3/uL (130-400); RDW 15.2 % (11.5-14.5)
[2019-11-27 05:53] LABS: WBC 13.7 10x3/uL (4.8-10.8)
[2019-11-27 06:05] LABS: ANION GAP 18.2 mmol/L (8-16); CALCIUM 7.4 mg/dL (8.5-10.1); CARBON DIOXIDE 23.7 mmol/L (21.0-32.0); CREATININE - SERUM 5.3 mg/dL (0.6-1.3); PHOSPHOROUS 6.4 mg/dL (2.5-4.9); VANCOMYCIN - RANDOM 20.2 ug/mL (10.0-20.0)
[2019-11-27 06:07] LABS: POTASSIUM - SERUM 3.9 mmol/L (3.5-5.1)
--- NOTE | 2019-11-27 07:45 | NUR ---
PT SWITCHED OVER TO CPAP BY RT. WILL CONTINUE TO MONITOR
--- NOTE | 2019-11-27 09:58 | NUR ---
SPOKE WITH DR SUAZO ON PHONE. DOES NOT WANT ANY SEDATION UNLESS APPROVED BY HIM. WILL CONTINUE TO MONITOR
--- NOTE | 2019-11-27 12:22 | NUR ---
PT RESTING IN BED. ON CPAP TRIAL. TOLERATING WELL. STILL IN AFIB. WILL CONTINUE TO MONITOR
--- NOTE | 2019-11-27 14:21 | NUR ---
DIALYSIS NURSE IN ROOM. SHE CALLED DR FELDMAN TO COME ASSESS PT TO DETERMINE IF SHE IS ABLE TO START DIALYSIS. WILL CONTINUE TO MONITOR
--- NOTE | 2019-11-27 15:45 | NUR ---
DR SUAZO AND DR FELDMAN IN ROOM. UPDATE GIVEN. NEW ORDERS RECEIVED. WILL CONTINUE TO MONITOR
--- NOTE | 2019-11-27 17:00 | NUR ---
SPOKE WITH NATIVIDAD SHAH TO PROVIDE INFORMATION ABOUT PT SO SON COULD BE EXCUSED FROM [facility] TO COME VISIT. CASE NUMBER PROVIDED WELL RED CROSS NUMBER. CASE NUMBER- [id number] RED CROSS- [phone]
[2019-11-28] VITALS (39 sets, daily range): BP systolic 77–115; BP diastolic 50–78
--- NOTE | 2019-11-28 08:00 | NUR ---
OPENS EYES TO VERBAL STIMULATION. SKIN WARM AND DRY. ETT SECURE TO VENT BILATERAL LUNG SOUNDS CONGESTED BUT EQUAL. SQUEEZES HANDS ON REQUEST AND MOVES FEET ON REQUEST. DRESSINGS ON RIGHT THIGHT WITH YELLOW DRAINAGE. DRESSING REMOVED, RIGHT LOWER LEG DRESSING REMOVED. OLD SKIN GRAFT SITES. OVER A YEAR OLD PER FAMILY MEMBER. NO DRAINAGE ON RIGHT LOWER LEG. BOTH SITES CLEAN WITH WOUND CLEANSER. ADAPTIC APPLIED COVERED WITH 4X4. SECURE WITH TAPE ON LOWER LEG AND TEGRADERM ON THIGH. BOTH AREAS WITH YELLOW AND BLACK IN WOUNDS. NO PINK NOTED. PATIENT TOLERATED DRESSING CHANGE WELL. RAMÍREZ CATH PATENT DRAING ALYSHA URINE. MONITOR ATRIAL FIB CONTROLLED RATE. HEAD OF BED ELEVATED 30 DEGREES. JAVIER BROWNING HERE.
--- NOTE | 2019-11-28 09:00 | NUR ---
PROFOLOL TURNED OFF FOR CPAP TRAIL.FAMILY HERE UPDATE GIVEN.
--- NOTE | 2019-11-28 11:00 | NUR ---
FAILED CPAP TRAIL. PULSE OX DROPPED BELOW 90.
--- NOTE | 2019-11-28 11:14 | NUR ---
Nutrition follow-up: NPO Intubated; awake. Pt with a lot of family in room Not a candidate for dialysis Labs reviewed Wt: 156# Will need nutrition support if medically feasible RDN following.
--- NOTE | 2019-11-28 13:00 | NUR ---
FAMILY HERE UPDATE GIVEN. PATIENT AWAKE NODES HEAD TO YES AND NO QUESTIONS. COMPLETE HIBCLENS BATH GIVEN WITH LINEN CHANGE. NO SKIN BREAKDOWN NOTED. DRESSING ON RIGHT LEG DRY AND INTACT.
--- NOTE | 2019-11-28 14:09 | NUR ---
DR. SUAZO AND FAMILY HAD A LONG TALK ABOUT LIFE SUPPORT. ALL FAMILY MEMBERS AGREE THAT DOES NOT WANT LIFT SUPPORT WOULD NOT WANT TO BE. FAMILY WANT TO HAVE PATIENT EXTUBATED. PATIENT DOES NODE HEAD THAT SHE WANTS THE ETT REMOVED. WAITING ON CHILD IN [place] TO MAKE A FINAL DECISIONS.
--- NOTE | 2019-11-28 17:00 | NUR ---
RESTING COMFORTABLY NO DISTRESS. OPENS EYES ON REQUEST, FAMILY AT BEDSIDE
--- NOTE | 2019-11-28 21:00 | NUR ---
VSS. WILL CONTINUE TO MONITOR.
--- NOTE | 2019-11-28 23:00 | NUR ---
VSS. WILL CONTINUE TO MONITOR.
[2019-11-29] VITALS (12 sets, daily range): BP systolic 81–99; BP diastolic 54–73
--- NOTE | 2019-11-29 01:00 | NUR ---
VSS. WILL CONTINUE TO MONITOR.
--- NOTE | 2019-11-29 03:00 | NUR ---
VSS. WILL CONTINUE TO MONITOR.
--- NOTE | 2019-11-29 03:45 | NUR ---
VSS. WILL CONTINUE TO MONITOR.
[2019-11-29 05:49] LABS: BASOPHILS 0 % (0-2); EOSINOPHILS 0 % (0-7); HEMATOCRIT 23.7 % (36.0-48.0); HEMOGLOBIN 7.6 g/dL (12-16); IMMATURE GRANULOCYTES 0.7 % (0-5); LYMPHOCYTES 4.1 % (15-50); MCH 27.7 pg (26.0-34.0); MCHC 32.1 g/dL (31.0-37.0); MCV 86.5 fL (80.0-100.0); MEAN PLATELET VOLUME 10.7 fL (7.4-10.4); MONOCYTES 3.7 % (2-11); NEUTROPHILS 91.5 % (40-80); PLATELET COUNT 291 10x3/uL (130-400); RBC 2.74 10x6/uL (4.00-5.40); RDW 15.6 % (11.5-14.5); WBC 13.8 10x3/uL (4.8-10.8)
[2019-11-29 06:27] LABS: CALCIUM 7.6 mg/dL (8.5-10.1); CARBON DIOXIDE 25.5 mmol/L (21.0-32.0); PHOSPHOROUS 5.1 mg/dL (2.5-4.9); VANCOMYCIN - RANDOM 20.4 ug/mL (10.0-20.0)
[2019-11-29 06:30] LABS: CREATININE - SERUM 3.8 mg/dL (0.6-1.3)
[2019-11-29 06:32] LABS: POTASSIUM - SERUM 2.5 mmol/L (3.5-5.1)
--- NOTE | 2019-11-29 07:36 | NUR ---
LYING IN BED ON VENT AT THIS TIME. PT WAKES UP AND FOLLOWS COMMANDS. VSS. NO ACUTE DISTRESS NOTED. WILL CONTINUE PLAN OF CARE.
--- NOTE | 2019-11-29 08:30 | NUR ---
DR. SUAZO AND FAMILY AT BEDSIDE, DISCUSSED POC, FAMILY WISHES TO TERMINALLY EXTUBATE AT THIS TIME,
--- NOTE | 2019-11-29 09:09 | NUR ---
INCONTINENT BOWEL MOVEMENT AT THIS TIME X 2. TOTAL LINEN CHANGE PROVIDED. VSS. NO ACUTE DISTRESS NOTED. RHETT CARE/RAMÍREZ CARE PROVIDED. WILL CONTINUE PLAN OF CARE.
--- NOTE | 2019-11-29 09:29 | NUR ---
PT TERMINALLY EXTUBATED AT THIS TIME. PLACED ON NC AT 2L. FAMILY AT BEDSIDE. PT AWAKE AND NODS/SHAKES HEAD FOR YES/NO. VSS. WILL CONTINUE PLAN OF CARE.
--- NOTE | 2019-11-29 09:47 | NUR ---
ALL SCHEDULED MEDS, LABS, IMAGING, AND OTHER ITEMS NOT RELATED TO PT COMFORT DCD AT THIS TIME PER TERMINAL EXTUBATION ORDERS. PT AWAKE WITH FAMILY AT BEDSIDE. WILL CONTINUE PLAN OF CARE.
--- NOTE | 2019-11-29 09:51 | NUR ---
PER DR OMER, TRANSFER TO FLOOR.
--- NOTE | 2019-11-29 11:27 | NUR ---
NO ACUTE DISTRESS NOTED. LYING IN BED RESTING WITH EYES CLOSED. AWAKENS WHEN SPOKEN TO THEN GOES BACK TO SLEEP. NO ACUTE DISTRESS NOTED. FAMILY AT BEDSIDE. WILL CONTINUE PLAN OF CARE.
--- NOTE | 2019-11-29 13:26 | NUR ---
NO ACUTE DISTRESS NOTED. NO CHANGE. VSS. PT RESTING WITH EYES CLOSED. AWAKENS WHEN SPOKEN TO. TURNED Q2H, ORAL CARE PROVIDED Q2H. WILL CONTINUE PLAN OF CARE.
--- NOTE | 2019-11-29 15:02 | NUR ---
FAMILY AT BEDSIDE AT THIS TIME. VSS. NO ACUTE DISTRESS NOTED. PT AWAKENS WHEN SPOKEN TO. VSS. WILL CONTINUE PLAN OF CARE.
[2019-11-29 15:11] LABS: FUNGUS MYCOLOGY CULTURE Preliminary report (())
--- NOTE | 2019-11-29 15:15 | NUR ---
SPOKE WITH PTS FAMILY INCLUDING SON WHO STATES THEY WISH FOR PT TO GO TO [facility]. PT AWAKE AND ALERT SHOOK HEAD IN AGREEMENT.
--- NOTE | 2019-11-29 16:25 | MORECARE ---
CASE MANAGEMENT DISCHARGE SUMMARY PATIENT: HAIM FITZGERALD UNIT: [id number] ADM DATE: 11/22/19 AGE: 69 : 51 SEX: F ROOM/BED: D.2313 AUTHOR: CLAY,DOC PHYSICIAN: REFERRING PHYSICIAN: EVA OMER MD DATE OF SERVICE: 11/29/19 Discharge Plan Patient Name: HAIM FITZGERALD Facility: [facility]:[place] : 1950 Planned Disposition: Anticipated Discharge Date: Discharge Date: Expected LOS: Initial Reviewer: [email or web address] Initial Review Date: 11/22/2019 Generated: 11/29/19 5:24 pm Comments DCP- Discharge Planning Updated by [email or web address]: Shaylee Bowden on 11/26/19 7:[address] Patient Name: HAIM FITZGERALD Admission Status: ER Accout number: [id number] Admission Date: 11-22-2019 : 1950 Admission Diagnosis:SEPSIS, UNSPECIFIED ORGANISM Attending: EVA OMER Current LOS: 4 Anticipated DC Date: Planned Disposition: Primary Insurance: [facility] MEDICARE SOLUTIONS Discharge Planning Comments: CM met with patient's niece Sanaz Brown to complete initial dc planning assessment. Patient is currently sedated on vent. CM educated patient on the CM role and verbal consent given by patient to complete assessment. Patient lives at home with Sanaz but Sanaz states that sometimes she is alone while aide is there. Patient is partially dependent with ADL's CM discussed availability of home health, rehab services, and medical equipment. Patient is current with [facility]. CM explained to Sanaz that [facility] had called and stated that they didn't feel like it would be a safe discharge for patient to go back home and Sanaz agreed. Sanaz states that the patient has a son that lives in [place] (oldest) doesn't know his number. She also stated that the patient's youngest son (Zena Menendez) will be in town sometime tonight from [place]. Sanaz stated that she thought the youngest son was planning on taking her back with him to [place]. JAY asked if there was a POA and Sanaz stated that she thought that the patient may have some POA paperwork at her apartment. Sanaz states that patient does have home / portable 02 uncertain of provider. Sanaz states that she has [facility] for manager care management and [facility] . CM will continue to follow and will assist as needed with dc plans/needs. Lubricating Machine Tender: Shaylee Bowden DCP- Discharge Planning Updated by [id number]: Shaylee Bowden on 11/23/19 2:[address] CM received a call from [facility] and Tracy explained that the patient's nurse is reporting that it isn't safe for patient to return to her home. She stated that the patient had previously been at [facility] and she was recommending that patient discharge back to a SNF facility. CM will continue to follow and assist as needed with discharge planning / needs. DCPIA - Discharge Planning Initial Assessment Updated by [email or web address]: Shaylee Bowden on 11/26/19 7:51 pm * Is the patient Alert and Oriented? No * How many steps to enter\exit or inside your home? * PCP NEGRA * Pharmacy [facility] * Preadmission Environment Home with Family * ADLs Partial Dependent * Partial ADLs (Assistance needed) Ambulation Bathing Dressing Eating Medication Management Toileting Transfers * Other Equipment HOME / PORT 02, WALKER, MED ALERT * List name and contact numbers for known caregivers / representatives who currently or will assist patient after discharge: [facility]Z [facility]OWN [facility] [phone] * Verbal permission to speak to the caregivers and representatives has been obtained from the patient. N/A * Community resources currently utilized Home Health * Please name any agencies selected above. [employer] [facility] * Additional services required to return to the preadmission environment? No * Can the patient safely return to the preadmission environment? Yes * Has this patient been hospitalized within the prior 30 days at any hospital? Yes External Providers External Provider: [facility] *(provides inpt [facility] Next Contact Date: Service Request Date: Service Type: Resolution: Reviewer: Comments: Last DP export: 11/26/19 7:17 p Patient Name: HAIM FITZGERALD Page 42602 at 2168 All edits/amendments must be made on the electronic document DICTATION DATE: 11/29/191623 GEOSPATIAL TECHNOLOGIST: KAYY 11/29/191623 RPT#: [id number] DC DATE: STATUS: ADM IN [facility] [address] [place] [address] END OF REPORT
--- NOTE | 2019-11-29 16:30 | OP ---
PATIENT NAME: HAIM FITZGERALD MEDICAL RECORD: [id number] :[birth year] LOCATION:[facility] D.2313 ADMISSION DATE:11/22/19 SURGEON: GERRY HUNT MD DATE OF OPERATION: 11/22/2019 PREOPERATIVE DIAGNOSIS: Acute renal failure in need of vascular access for hemodialysis. POSTOPERATIVE DIAGNOSIS: Acute renal failure in need of vascular access for hemodialysis. PROCEDURE: Urgent right internal jugular Trialysis catheter placement. SURGEON: Gerry Hunt MD TAX FORM PREPARER: None. BLOOD LOSS: Minimal. ANESTHESIA: Local. The entire procedure was performed in the presence of a nurse. OPERATIVE COURSE: The patient was seen at the bedside in the ICU. She was positioned in the Trendelenburg position. The right neck was sterilely prepped and draped. Local anesthetic was used to infiltrate the skin and subcutaneous tissue at the base of the right neck. The right internal jugular vein was percutaneously accessed in an antegrade fashion. Guidewire was passed easily. A small skin soraya was accomplished. A vessel dilator was used to dilate a subcutaneous tract. A short Trialysis catheter was then inserted to the hub. All lumens flushed easily and aspirated dark, nonpulsatile blood. A stat portable chest x-ray revealed no radiographic evidence of complication. TRANSINT:[id number] Voice Confirmation ID: [id number] DOCUMENT ID: [id number] GERRY HUNT MD at 1630 CC: [id number] DICTATION DATE: 11/23/19 1713 CLAMP TRUCK DRIVER: 11/24/19 0231 ADM IN [facility] [address] [place] [address]
--- NOTE | 2019-11-29 18:20 | NUR ---
DR OMER NOTIFIED THAT PT HAS BEEN ACCEPTED TO [facility] AND PAPERWORK HAS BEEN SIGNED.
--- NOTE | 2019-11-29 19:00 | NUR ---
ASSESSMENT COMPLETED. SEE FLOWSHEETS FOR ALL FINDINGS. PT AROUSES WITH VOICES, DENIES ANY DISCOMFORT AT THIS TIME. REPOSITIONED FOR COMFORT. HOB UP. SIDE RAILS UP. CPOC.
--- NOTE | 2019-11-29 21:10 | NUR ---
[facility] CALLED TO REQUEST AN AMBULANCE FOR [facility] [place].
--- NOTE | 2019-11-29 21:10 | NUR ---
[facility] CALLED, REPORT GIVEN TO MARY, FOR ROOM 547.
--- NOTE | 2019-11-29 22:39 | NUR ---
[facility] STAFF HERE, PT READY FOR TRANSPORT TO [facility] IN [place], RM 547.
--- NOTE | 2019-11-30 09:13 | MORECARE ---
CASE MANAGEMENT DISCHARGE SUMMARY PATIENT: HAIM FITZGERALD UNIT: [id number] ADM DATE: 11/22/19 AGE: 69 : 52 SEX: F ROOM/BED: D.2313 AUTHOR: CLAY,DOC PHYSICIAN: REFERRING PHYSICIAN: EVA OMER MD DATE OF SERVICE: 11/30/19 Discharge Plan Patient Name: HAIM FITZGERALD Facility: [facility]:[place] : 1950 Planned Disposition: Anticipated Discharge Date: Discharge Date: 11/29/2019 Expected LOS: Initial Reviewer: [email or web address] Initial Review Date: 11/22/2019 Generated: 11/30/19 10:12 am Comments DCP- Discharge Planning Updated by [email or web address]: Shaylee Bowden on 11/26/19 7:[address] Patient Name: HAIM FITZGERALD Admission Status: ER Accout number: [id number] Admission Date: 11-22-2019 : 1950 Admission Diagnosis:SEPSIS, UNSPECIFIED ORGANISM Attending: EVA OMER Current LOS: 4 Anticipated DC Date: Planned Disposition: Primary Insurance: [facility] [employer] Discharge Planning Comments: CM met with patient's niece Sanaz Brown to complete initial dc planning assessment. Patient is currently sedated on vent. CM educated patient on the CM role and verbal consent given by patient to complete assessment. Patient lives at home with Sanaz but Sanaz states that sometimes she is alone while aide is there. Patient is partially dependent with ADL's CM discussed availability of home health, rehab services, and medical equipment. Patient is current with [facility] . CM explained to Sanaz that [facility] had called and stated that they didn't feel like it would be a safe discharge for patient to go back home and Sanaz agreed. Sanaz states that the patient has a son that lives in [place] (oldest) doesn't know his number. She also stated that the patient's youngest son (Zena Menendez) will be in town sometime tonight from [place]. Sanaz stated that she thought the youngest son was planning on taking her back with him to [place]. CM asked if there was a POA and Sanaz stated that she thought that the patient may have some POA paperwork at her apartment. Sanaz states that patient does have home / portable 02 uncertain of provider. Sanaz states that she has [facility] for physician locums urgent care and [facility]. CM will continue to follow and will assist as needed with dc plans/needs. Vascular Technologist: Shaylee Bowden DCP- Discharge Planning Updated by [email or web address]: Shaylee Bowden on 11/23/19 2:[address] CM received a call from [facility] and Tracy explained that the patient's nurse is reporting that it isn't safe for patient to return to her home. She stated that the patient had previously been at [facility] and she was recommending that patient discharge back to a SNF facility. CM will continue to follow and assist as needed with discharge planning / needs. DCPIA - Discharge Planning Initial Assessment Updated by [email or web address]: Shaylee Bowden on 11/26/19 7:51 pm * Is the patient Alert and Oriented? No * How many steps to enter\exit or inside your home? * PCP [facility] * Pharmacy [facility] * Preadmission Environment Home with Family * ADLs Partial Dependent * Partial ADLs (Assistance needed) Ambulation Bathing Dressing Eating Medication Management Toileting Transfers * Other Equipment HOME / PORT 02, WALKER, MED ALERT * List name and contact numbers for known caregivers / representatives who currently or will assist patient after discharge: SANAZ CUBA - [phone] * Verbal permission to speak to the caregivers and representatives has been obtained from the patient. N/A * Community resources currently utilized Home Health * Please name any agencies selected above. [facility] * Additional services required to return to the preadmission environment? No * Can the patient safely return to the preadmission environment? Yes * Has this patient been hospitalized within the prior 30 days at any hospital? Yes Last DP export: 11/29/19 3:25 p Patient Name: HAIM FITZGERALD Page [id number] at 0913 All edits/amendments must be made on the electronic document DICTATION DATE: 11/30/19911 PRE PAROLE COUNSELING AIDE: KAYY 11/30/19911 RPT#: [id number] DC DATE:11/29/19 STATUS: DIS IN [facility] [address] [place] [address] END OF REPORT
== END 2019-11-29 22:40 | disposition hospice, inpatient (51) | DRG 870 ==
LOC: D.ER 05:30 → D.ICU 08:25
PROVIDERS: Emergency Medicine; Family Medicine; Internal Medicine Nephrology; Internal Medicine Pulmonary Disease; ADMIT Family Medicine; ATTEND Family Medicine
PROC: 05HM33Z Insertion of Infusion Device into Right Internal Jugular Vein, Percutaneous Approach (ICD-10-PCS; principal; 2019-11-22)
PROC: 5A1955Z Respiratory Ventilation, Greater than 96 Consecutive Hours (ICD-10-PCS; 2019-11-23)
PROC: 0BH17EZ Insertion of Endotracheal Airway into Trachea, Via Natural or Artificial Opening (ICD-10-PCS; 2019-11-23)
PROC: 0B978ZZ Drainage of Left Main Bronchus, Via Natural or Artificial Opening Endoscopic (ICD-10-PCS; 2019-11-23)
PROC: 0B938ZZ Drainage of Right Main Bronchus, Via Natural or Artificial Opening Endoscopic (ICD-10-PCS; 2019-11-23)
DX: A41.9 Sepsis, unspecified organism (principal); J18.1 Lobar pneumonia, unspecified organism; J96.01 Acute respiratory failure with hypoxia; N17.0 Acute kidney failure with tubular necrosis; I50.33 Acute on chronic diastolic (congestive) heart failure; R65.21 Severe sepsis with septic shock; G93.41 Metabolic encephalopathy; J69.0 Pneumonitis due to inhalation of food and vomit; M62.82 Rhabdomyolysis; J44.1 Chronic obstructive pulmonary disease with (acute) exacerbation; E87.2 Acidosis; K56.7 Ileus, unspecified; E46 Unspecified protein-calorie malnutrition; I11.0 Hypertensive heart disease with heart failure; E03.9 Hypothyroidism, unspecified; G20 Parkinson's disease; M19.90 Unspecified osteoarthritis, unspecified site; R53.81 Other malaise; M06.9 Rheumatoid arthritis, unspecified; M79.7 Fibromyalgia; F32.9 Major depressive disorder, single episode, unspecified; K21.9 Gastro-esophageal reflux disease without esophagitis; I95.9 Hypotension, unspecified; I48.91 Unspecified atrial fibrillation; D50.9 Iron deficiency anemia, unspecified; G25.3 Myoclonus; G62.9 Polyneuropathy, unspecified; F17.200 Nicotine dependence, unspecified, uncomplicated; E87.5 Hyperkalemia; S81.801D Unspecified open wound, right lower leg, subsequent encounter